=== PATIENT | female | born 1950 | race Hispanic/Latino ===

== ENCOUNTER 2020-01-21 14:00 | Inpatient (IN) | payer BC, OTHER ==
[~2020-01-21] VITALS: Ht 162.6 cm; Wt 107.6 kg
--- NOTE | 2020-01-21 14:03 | Emergency Department Note ---
History of Present Illnes History of Present Illness Chief Complaint: General Medicine Complaints History of Present Illness This is a 69 year old female presents to the ED for lower abd pain with nausea/vomiting and diarrhea. Denies fever or cough . Historian: Patient Arrival Mode: Car History limited by: language barrier Nursing Agency Manager Required: Yes Onset (how long ago): week(s) (1) Location: lower abdomen Radiation: Reports abdomen Severity: moderate Onset quality: gradual Duration (how long): week(s) (1) Timing of current episode: constant Progression: worsening Chronicity: new Relieving factors: none Exacerbating factors: none Treatments prior to arrival: none Past Medical/Family History Physician Review I have reviewed the patient's past medical and family history. Any updates have been documented here. Past Medical History Past Surgical History: None Social History Smoking Cessation: Never Smoker Alcohol Use: None Any Illegal Drug Use: No Review of Systems Review of Systems Constitutional: Reports no symptoms; Denies fever EENTM: Reports no symptoms Cardiovascular: Reports no symptoms Respiratory: Reports no symptoms; Denies cough Gastrointestinal: Reports abdominal pain, Reports diarrhea, Reports nausea, Reports vomiting Genitourinary: Reports no symptoms Musculoskeletal: Reports no symptoms Integumentary: Reports no symptoms Neurological: Reports no symptoms Psychological: Reports no symptoms Endocrine: Reports no symptoms Hematological/Lymphatic: Reports no symptoms Physical Exam Related Data Allergies: Coded Allergies: No Known Allergies (Unverified , 01/21/20) Physical Exam CONSTITUTIONAL Constitutional: Present well-developed, Present well-nourished HENT HENT: Present normocephalic, Present atraumatic, Present oropharynx clear/moist, Present nose normal HENT L/R: Present left ext ear normal, Present right ext ear normal EYES Eyes: Reports PERRL, Reports conjunctivae normal NECK Neck: Present ROM normal PULMONARY Pulmonary: Present effort normal, Present breath sounds normal CARDIOVASCULAR Cardiovascular: Present regular rhythm, Present heart sounds normal, Present capillary refill normal, Present normal rate GASTROINTESTINAL Abdominal: Present soft, Present tender (lower) GENITOURINARY Genitourinary: Present exam deferred SKIN Skin: Present warm, Present dry MUSCULOSKELETAL Musculoskeletal: Present ROM normal NEUROLOGICAL Neurological: Present alert, Present oriented x 3, Present no gross motor or sensory deficits PSYCHOLOGICAL Psychological: Present mood/affect normal, Present judgement normal Results Laboratory Lab results reviewed: Yes Laboratory comments CBC : wnl CMP : Na 130, Glucose 200 UA : rare bacteria Imaging Imaging results reviewed: Yes Impressions [facility] [address] [address] Patient Name: GALILEO DILLON MR #: [id number] : 1950 Age/Sex: 69/F Req #: [id number] Adm Physician: Ordered by: DAISY JIANG DO Report #: [id number] Location: ER Room/Bed: Procedure: [id number] CT/CT ABDOMEN/PELVIS W Exam Date: 01/21/20 Exam Time: 1515 REPORT STATUS: Signed EXAM: CT Abdomen and Pelvis WITH contrast INDICATION: ^lower abd pain ^20200121 ^1515 COMPARISON: None. TECHNIQUE: Abdomen and pelvis were scanned utilizing a multidetector helical scanner from the lung base to the pubic symphysis after administration of IV contrast. Coronal and sagittal reformations were obtained. Routine protocol was performed. Scan was performed when during portal venous phase. IV CONTRAST: 100 mL of Isovue 370 ORAL CONTRAST: None RADIATION DOSE: Total DLP: 426 mGy*cm Estimated effective dose: (DLP x 0.015 x size factor) mSv COMPLICATIONS: None FINDINGS: LINES and TUBES: None. LOWER THORAX: Bilateral subpleural groundglass airspace opacities, left greater than right. HEPATOBILIARY: No focal hepatic lesions. No biliary ductal dilation. GALLBLADDER: No radio-opaque stones or sludge. No wall thickening. SPLEEN: No splenomegaly. PANCREAS: No focal masses or ductal dilatation. ADRENALS: No adrenal nodules KIDNEYS/URETERS: Kidneys enhance symmetrically. No hydronephrosis. Indeterminate 0.6 cm partially exophytic cyst in the right kidney on series 2, image 38. No stones. GI TRACT: No abnormal distention, wall thickening, or evidence of bowel obstruction. Diffuse diverticulosis of the sigmoid colon without diverticulitis. Appendix is normal. PELVIC ORGANS/BLADDER: Unremarkable. LYMPH NODES: No lymphadenopathy. VESSELS: Unremarkable. PERITONEUM / RETROPERITONEUM: No free air or fluid. BONES: Unremarkable. SOFT TISSUES: Unremarkable. IMPRESSION: Bilateral lower lobe subpleural groundglass opacities concerning for multifocal pneumonia, including viral pneumonia. No acute abnormalities in the abdomen and pelvis. Diverticulosis of the sigmoid colon without diverticulitis. Signed by: Dr. Lacy Michelle M.D. on 01/21/2020 4:43 PM Dictated By: LACY MICHELLE MD 42 Transcribed By: RAYNA on 01/21/201642 COPY TO: DAISY JIANG DO~ Assessment & Plan Medical Decision Making MDM 69 yof with abdominal pain. CBC, CMP, UA and CTS ordered to r/o appendicitis, diverticulitis, UTI, kidney stone, perforated viscus, obstruction, ischemia, and biliary pathology. CTS abd demonstrated no intra-abdominal pathology but suggestive of multifocal viral pneumonia . Suspicion for COVID-19 high and patient placed in isolation with patient to be admitted for suspected COVID-19 infection Assessment & Plan Final Impression: (1) COVID-19 (2) Lower abdominal pain Depart Disposition: ADMITTED Home Meds Reported Medications Sumatriptan Succinate (SUMATRIPTAN SUCCINATE) 50 Mg Tablet, 50 MG PRN 01/21/20 Tramadol Hcl* (ULTRAM 50MG*) 50 Mg Tab, 50 MG BID 01/21/20 Cyclobenzaprine Hcl (FLEXERIL) 5 Mg Tablet, 5 MG PRN 01/21/20 Metformin Hcl (METFORMIN HCL) 1,000 Mg Tablet, 1000 MG BID 01/21/20 Loratadine (LORATADINE) 10 Mg Tablet, 10 MG BID 01/21/20 Simvastatin (SIMVASTATIN) 10 Mg Tablet, 10 MG HS 01/21/20 Glipizide (GLIPIZIDE) 10 Mg Tablet, 10 MG BID 01/21/20 Amitriptyline Hcl (AMITRIPTYLINE HCL) 10 Mg Tablet, 10 MG HS 01/21/20 DAISY JIANG DO Jan 21, 2020 14:03
[2020-01-21] MEDS ORDERED: SODIUM CHLORIDE 0.9% 1000ML 1,000 ML IV STA (14:04)
[2020-01-21] MEDS ORDERED: ONDANSETRON HCL INJ 2MG/ML 2ML 2 MG/ML VIAL IV NR (14:15)
[2020-01-21] MEDS ORDERED: MORPHINE SULFATE INJ 4 MG/ML INJ 1ML IV NR (14:15)
[2020-01-21 14:16] LABS: BASOPHILS % 0.2 % (0.0-1.0); HEMATOCRIT 40.1 % (34.2-44.1); HEMOGLOBIN 13.7 g/dL (12.0-16.0); LYMPHOCYTES # (AUTO) 1.5 (1.0-3.2); LYMPHOCYTES % 31.2 % (18.0-39.1); MEAN CORPUSCULAR HEMOGLOBIN 28.9 pg (28-32); MEAN CORPUSCULAR HGB CONC 34.2 g/dL (31-35); MEAN CORPUSCULAR VOLUME 84.6 fL (81-99); MONOCYTES # (AUTO) 0.2 (0.2-0.8); MONOCYTES % 4.2 % (4.4-11.3); NEUTROPHILS # (AUTO) 3.1 (2.1-6.9); NEUTROPHILS % 64.2 % (38.7-80.0); PLATELET COUNT 218 x10e3/uL (140-360); RED BLOOD COUNT 4.74 x10e6/uL (3.6-5.1); RED CELL DISTRIBUTION WIDTH 12.6 % (11.7-14.4)
[2020-01-21] MEDS ORDERED: DIATRIZOATE MEGL/DIATRIZOA SOD 30 ML BTL PO ONE (14:30)
[2020-01-21 14:36] LABS: CLARITY,URINE CLEAR (CLEAR); COLOR,URINE ORANGE (YELLOW); LEUKOCYTE ESTERASE ,URINE NEGATIVE (NEGATIVE); NITRITE,URINE NEGATIVE (NEGATIVE)
[2020-01-21 14:37] LABS: BILIRUBIN,URINE SMALL (NEGATIVE); KETONES,URINE TRACE (NEGATIVE); PROTEIN,URINE DIPSTICK >=300 (NEGATIVE); URINE UROBILINOGEN 1 mg/dL (0.2 - 1)
[2020-01-21 14:44] LABS: ALBUMIN 3.3 g/dL (3.5-5.0); ALBUMIN/GLOBULIN RATIO 0.8 (0.8-2.0); ANION GAP 15.9 mmol/L (8-16); CALCIUM 8.5 mg/dL (8.4-10.2); CREATININE, SERUM 0.94 mg/dL (0.57-1.11); POTASSIUM 3.9 mmol/L (3.5-5.1)
[2020-01-21 14:57] LABS: BACTERIA,URINE RARE /HPF; EPITHELIAL CELLS,URINE FEW /LPF
[2020-01-21] MEDS ORDERED: ETOMIDATE 2 MG/ML 10 ML INJ IV ONE (15:10)
[2020-01-21] MEDS ORDERED: MIDAZOLAM HCL 2 MG/2 ML VIAL ONE (15:10)
[2020-01-21] MEDS ORDERED: SUCCINYLCHOLINE CHLORIDE 20 MG/ML 10ML VIAL ONE (15:10)
[2020-01-21] MEDS ORDERED: SODIUM CHLORIDE 0.9% 50ML 50 ML ONE (15:16)
[2020-01-21] MEDS ORDERED: IOPAMIDOL 370 MG/ML 200 ML INFUS..BTL INJ ONE (15:16)
--- NOTE | 2020-01-21 16:46 | Diagnostic Imaging Report ---
EXAM: CT Abdomen and Pelvis WITH contrast INDICATION: ^lower abd pain ^20200121 ^1515 COMPARISON: None. TECHNIQUE: Abdomen and pelvis were scanned utilizing a multidetector helical scanner from the lung base to the pubic symphysis after administration of IV contrast. Coronal and sagittal reformations were obtained. Routine protocol was performed. Scan was performed when during portal venous phase. IV CONTRAST: 100 mL of Isovue 370 ORAL CONTRAST: None RADIATION DOSE: Total DLP: 426 mGy*cm Estimated effective dose: (DLP x 0.015 x size factor) mSv COMPLICATIONS: None FINDINGS: LINES and TUBES: None. LOWER THORAX: Bilateral subpleural groundglass airspace opacities, left greater than right. HEPATOBILIARY: No focal hepatic lesions. No biliary ductal dilation. GALLBLADDER: No radio-opaque stones or sludge. No wall thickening. SPLEEN: No splenomegaly. PANCREAS: No focal masses or ductal dilatation. ADRENALS: No adrenal nodules KIDNEYS/URETERS: Kidneys enhance symmetrically. No hydronephrosis. Indeterminate 0.6 cm partially exophytic cyst in the right kidney on series 2, image 38. No stones. GI TRACT: No abnormal distention, wall thickening, or evidence of bowel obstruction. Diffuse diverticulosis of the sigmoid colon without diverticulitis. Appendix is normal. PELVIC ORGANS/BLADDER: Unremarkable. LYMPH NODES: No lymphadenopathy. VESSELS: Unremarkable. PERITONEUM / RETROPERITONEUM: No free air or fluid. BONES: Unremarkable. SOFT TISSUES: Unremarkable. IMPRESSION: Bilateral lower lobe subpleural groundglass opacities concerning for multifocal pneumonia, including viral pneumonia. No acute abnormalities in the abdomen and pelvis. Diverticulosis of the sigmoid colon without diverticulitis. Signed by: Dr. Chanell Briscoe M.D. on 01/21/2020 4:43 PM
[2020-01-21] MEDS ORDERED: ACETAMINOPHEN 325 MG TAB PO ONE (18:15)
[2020-01-21] MEDS: AZITHROMYCIN 500MG/NS 250 ML 250 ML IV SCH (18:20)
[2020-01-21] MEDS ORDERED: SIMVASTATIN10 MG (19:28)
[2020-01-21] MEDS ORDERED: METFORMIN HCL1000 MG (19:28)
[2020-01-21] MEDS ORDERED: AMITRIPTYLINE H10 MG (19:28)
[2020-01-21] MEDS ORDERED: GLIPIZIDE10 MG (19:28)
[2020-01-21] MEDS ORDERED: LORATADINE10 MG (19:28)
[2020-01-21] MEDS ORDERED: SUMATRIPTAN SUC50 MG (19:29)
[2020-01-21] MEDS ORDERED: ULTRAM 50MG50 MG (19:29)
[2020-01-21] MEDS ORDERED: CYCLOBENZAPRINE5 MG (19:29)
--- OUTSIDE RECORDS SUMMARY | 2020-01-21 20:32 | XMS REPORT | Continuity of Care Document ---
Author Author [facility] t Organization [facility] Address [address] [place] [address] Phone Unavailable Care Team Providers Care Java Programmer Analyst Name Role Phone DAISY JIANG Unavailable Problems This patient has no known problems. Allergies, Adverse Reactions, Alerts This patient has no known allergies or adverse reactions. Medications This patient has no known medications. Procedures This patient has no known procedures. Results Test Description Test Time Test Comments Results Result Comments Source CT ABDOMEN/PELVIS W 2020-01-21 16:39:[address] [address] Patient Name: GALILEO DILLON MR #: [id number] : 1950 Age/Sex: 69/F Req #: [id number] Adm Physician: Ordered by: DAISY JIANG DO Report #: [id number] Location: ER Room/Bed: Procedure: [id number] CT/CT ABDOMEN/PELVIS W Exam Date: 01/21/20 Exam Time: 1514 REPORT STATUS: Signed EXAM: CT Abdomen and Pelvis WITH contrast INDICATION: lower abd pain 20200121 COMPARISON: None. TECHNIQUE: Abdomen and pelvis were scanned utilizing a multidetector helical scanner from the lung base to the pubic symphysis after administration of IV contrast. Coronal and sagittal reformations were obtained. Routine protocol was performed. Scan was performed when during portal venous phase. IV CONTRAST: 100 mL of Isovue 370 ORAL CONTRAST: None RADIATION DOSE: Total DLP: 426 mGy*cm Estimated effective dose: (DLP x 0.015 x size factor) mSv COMPLICATIONS: None FINDINGS: LINES and TUBES: None. LOWER THORAX: Bilateral subpleural groundglass airspace opacities, left greater than right. HEPATOBILIARY: No focal hepatic lesions. No biliary ductal dilation. GALLBLADDER: No radio-opaque stones or sludge. No wall thickening. SPLEEN: No splenomegaly. PANCREAS: No focal masses or ductal dilatation. ADRENALS: No adrenal nodules KIDNEYS/URETERS: Kidneys enhance symmetrically. No hydronephrosis. Indeterminate 0.6 cm partially exophytic cyst in the right kidney on series 2, image 38. No sto john. GI TRACT: No abnormal distention, wall thickening, or evidence of bowel obstruction. Diffuse diverticulosis of the sigmoid colon without diverticulitis. Appendix is normal. PELVIC ORGANS/BLADDER: Unremarkable. LYMPH NODES: No lymphadenopathy. VESSELS: Unremarkable. PERITONEUM / RETROPERITONEUM: No free air or fluid. BONES: Unremarkable. SOFT TISSUES: Unremarkable. IMPRESSION: Bilateral lower lobe subpleural groundglass opacities concerning for multifocal pneumonia, including viral pneumonia. No acute abnormalities in the abdomen and pelvis. Diverticulosis of the sigmoid colon without diverticulitis. Signed by: Dr. Lacy Michelle M.D. on 01/21/2020 4:43 PM Dictated By: LACY MICHELLE MD 1643 Transcribed By: RAYNA on 01/21/20 1643 COPY TO: DAISY JIANG DO CT Brain/Head w/o Contrast 2018-01-21 16:32:17 P atient: GALILEO DILLON Date/Time01/21/2018 15:57 CDTReason for ExamSyncopeReportCT HEAD WITHOUT CONTRASTCLINICAL HISTORY: SyncopeCOMPARISON: None available.TECHNIQUE: 5 mm axial images of the brain were obtained without contrast. Coronal and sagittal reformats were obtained.FINDINGS: There is no acute intracranial hemorrhage or extra-axial col lection. Rodriguez-white matter differentiation is well-preserved without evidence of edema or acute infarct. There is no hydrocephalus, midline shift, or mass effect.The cranial vault and skull base are intact. The paranasal sinuses and mastoid air cells are pneumatized and well-aerated.IMPRESSION: No acute intracranial abnormalityLocation: R16 Final Dictated by: MD Vogel Adam FDictated DT/TM: 01/21/2018 4:30 pmSigned by: MD Vogel Adam FSigned (Electronic Signature): 01/21/2018 4:32 pm
[2020-01-21] MEDS ORDERED: SODIUM CHLORIDE 0.9% 1000ML 1,000 ML ONE (20:38)
[2020-01-21] MEDS ORDERED: SODIUM CHLORIDE 0.9% 1000ML 1,000 ML IV ONE (20:45)
--- NOTE | 2020-01-21 21:14 | NUR ---
DR. Antione GARZA--[phone]
[2020-01-21] MEDS: SODIUM CHLORIDE 0.9% 1000ML 1,000 ML IV SCH (21:50)
--- NOTE | 2020-01-21 21:52 | NUR ---
2ND LITER OF N.S. ORDERED BY DR. GARZA AND VASYL
[2020-01-21] MEDS ORDERED: DEXTROSE 50% SYRINGE 50 ML IV PRN (22:45)
[2020-01-21] MEDS ORDERED: ZOLPIDEM TARTRATE 5 MG TAB PO PRN (22:45)
--- NOTE | 2020-01-21 23:00 | NUR ---
According to report from Lavon Beckwith nurse patient was seen by Dr. Thompson at the E.R. and Dr. Fernandez was notified of this consultation.
--- NOTE | 2020-01-21 23:00 | NUR ---
Received patient from ED via stretcher. Patient is alert and oriented. Assisted to bed. Oxygen at 3l/min via nasal cannula. IV to both AC patent. IV fluid of NS at 125 ml/hr continue. Home medications reviewed. Patient states she gets dizzy sometimes at night when she gets up. Call light within patient's reached and encouraged to use. Bed alarm on. Bed in lowest position. Side rails up. Vital signs within normal range.
[2020-01-22] VITALS (10 sets, daily range): BP systolic 109–134; BP diastolic 63–81
--- NOTE | 2020-01-22 00:56 | Consultation ---
DATE OF CONSULTATION: Pulmonary Critical Care Consultation CHIEF COMPLAINT: Nausea, vomiting, and malaise. HISTORY OF PRESENT ILLNESS: The patient is a 69-year-old woman. She has a history of diabetes. She has felt ill for the past week. She had some nausea and vomiting over the last several days and did not take her Glucotrol. She has also noticed some polyuria. She complains of some cough. She seems unsure about fevers. She denies abdominal pain. PAST SURGICAL HISTORY: None. PAST MEDICAL HISTORY: 1. Hypertension. 2. No prior history of asthma or COPD. 3. No prior history of heart disease. ALLERGIES: NO KNOWN DRUG ALLERGIES. SOCIAL HISTORY: The patient is not a smoker. She is not a drinker. FAMILY HISTORY: Family history is noncontributory. REVIEW OF SYSTEMS: The patient is unsure about fevers. There is no headache. She has no neck pain. She has some dyspnea with exertion. There is some cough. She has no chest pain. She has no abdominal pain. She has had nausea and vomiting. She denies diarrhea. She has no leg edema. PHYSICAL EXAMINATION: VITAL SIGNS: The blood pressure is now 95/60 and the heart rate is 70. HEENT: Shows no facial swelling or erythema. The nasal mucosa is normal. The oropharynx is normal. LYMPHATIC: Shows no submandibular or cervical supraclavicular adenopathy. CARDIAC: Reveals regular rate and rhythm with normal S1 and S2. LUNGS: Auscultation of lungs reveals crackles at the bases. There is no wheezing. ABDOMEN: Soft, nontender. There is no rebound or guarding. EXTREMITIES: Shows no leg edema or calf tenderness. There is no cyanosis or clubbing. SKIN: Shows no rashes. NEUROLOGIC: Shows no focal abnormalities. LABORATORY DATA: White blood cell count is 4.75 and hemoglobin 13.7. The platelet count is 218. The sodium is 130, and the BUN to creatinine ratio is 14 to 0.94. The AST is 63. The albumin is 3.3. RADIOGRAPHIC DATA: CT scan of the abdomen and pelvis shows lower lobe ground-glass opacities concerning for multifocal pneumonia. There is diverticulosis of the sigmoid colon without diverticulitis. IMPRESSION: 1. Viral pneumonia and coronavirus disease infection. 2. Mild diabetic ketoacidosis. 3. Hypertension. 4. Hyponatremia. PLAN: The patient will receive: 1. IV fluids. 2. Judicious use of insulin. 3. Zithromax. 4. Supplemental oxygen. 5. Tylenol. MD PASTORA Easton/MODL /[id number]
--- NOTE | 2020-01-22 01:00 | NUR ---
Patient refused blood sugar checked. She said she wants to check it in the morning before breakfast.
[2020-01-22] MEDS ORDERED: ONDANSETRON HCL INJ 2MG/ML 2ML 2 MG/ML VIAL IV PRN (02:45)
[2020-01-22] MEDS ORDERED: HYDRALAZINE HCL 20 MG/ML VIAL IV PRN (02:45)
--- NOTE | 2020-01-22 05:59 | Diagnostic Imaging Report ---
EXAMINATION: CHEST SINGLE (PORTABLE) INDICATION: ^viral pneumonia ^20200122 ^0533 COMPARISON: None FINDINGS: AP view TUBES and LINES: None. LUNGS: Lungs are well inflated. Bilateral airspace opacities. PLEURA: No pleural effusion or pneumothorax. HEART AND MEDIASTINUM: The cardiomediastinal silhouette is unremarkable. BONES AND SOFT TISSUES: No acute osseous lesion. Soft tissues are unremarkable. UPPER ABDOMEN: No free air under the diaphragm. IMPRESSION: Bilateral airspace opacities, representing multifocal pneumonia. Signed by: Dr. Hector Vieyra MD on 01/22/2020 5:56 AM
[2020-01-22] MEDS: ACETAMINOPHEN 325 MG TAB PO PRN ×2 (06:19→20:56)
[2020-01-22] MEDS: SODIUM CHLORIDE 0.9% 1000ML 1,000 ML IV SCH (06:19)
[2020-01-22 06:30] LABS: ALANINE AMINOTRANSFERASE 26 IU/L (0-55); ALBUMIN 2.3 g/dL (3.5-5.0); ALBUMIN/GLOBULIN RATIO 0.7 (0.8-2.0); ALKALINE PHOSPHATASE 36 IU/L (40-150); ANION GAP 12.6 mmol/L (8-16); BLOOD UREA NITROGEN 9 mg/dL (7-26); BUN/CREATININE RATIO 13 (6-25); CALCIUM 7.5 mg/dL (8.4-10.2); CARBON DIOXIDE 16 mmol/L (22-29); CHLORIDE 109 mmol/L (98-107); CREATININE, SERUM 0.68 mg/dL (0.57-1.11); EST GLOMERULAR FILTRATION RATE > 60 ML/MIN (60-); GLUCOSE 182 mg/dL (74-118); POTASSIUM 3.6 mmol/L (3.5-5.1); SODIUM 134 mmol/L (136-145)
--- NOTE | 2020-01-22 06:31 | NUR ---
Stuck patient for blood drawn for labs but unsuccessful. Another RN tried and also was unsuccessful. screen making technician made aware that only 1 green top was obtained. screen making technician states he will tell the capital campaign fundraiser.
--- NOTE | 2020-01-22 06:58 | NUR ---
Day shift nurse is aware regarding the labs that patient needs to have.
[2020-01-22 07:03] LABS: CHOL/HDL RATIO 4.8 (3.0-3.6); MAGNESIUM 1.8 MG/DL (1.3-2.1); PHOSPHORUS 1.8 MG/DL (2.3-4.7)
[2020-01-22 07:10] LABS: THYROID STIMULATING HORMONE 0.852 uIU/mL (0.350-4.940)
[2020-01-22] MEDS: INSULIN REGULAR, HUMAN 100 UNIT/1 ML 3ML VIAL SQ SCH ×4 (07:30→20:57)
[2020-01-22] MEDS: LORATADINE 10 MG TAB PO SCH ×2 (08:26→17:06)
[2020-01-22] MEDS: FAMOTIDINE 20 MG/2 ML VIAL IV SCH ×2 (08:26→17:06)
[2020-01-22] MEDS: POTASSIUM CHLORIDE 20 MEQ TAB CR PO SCH (08:26)
[2020-01-22] MEDS: AZITHROMYCIN 500MG/NS 250 ML 250 ML IV SCH (08:26)
[2020-01-22] MEDS ORDERED: POTASSIUM PHOSPHATE 20 MM in SODIUM CHLORIDE 0.9% 250ML 250 ML IV ONE (09:30)
--- NOTE | 2020-01-22 13:48 | Progress Note ---
DATE: SUBJECTIVE: The patient still has dyspnea on exertion. She has some cough. She has some mild diarrhea. PHYSICAL EXAMINATION: VITAL SIGNS: Blood pressure is 124/81, saturation is 96% on 3 L, and the pulse is 77. HEENT: Shows no facial swelling or erythema. CARDIAC: Reveals regular rate and rhythm with normal S1, S2. LUNGS: Auscultation of lungs reveals crackles in the bases. There is no wheezing. ABDOMEN: Soft, nontender. There is no rebound or guarding. EXTREMITIES: Shows no leg edema or calf tenderness. There is no cyanosis or clubbing. SKIN: Shows no rashes. NEUROLOGIC: Shows no focal abnormalities. LABORATORY DATA: BUN to creatinine ratio is 9 to 0.68, and CBC is within normal limits. IMPRESSION: 1. Viral pneumonia and coronavirus. 2. Diabetes. 3. Hypertension. 4. Hyponatremia. PLAN: 1. Stop normal saline because of worsening hypochloremia. 2. Continue oxygen. 3. Continue antibiotics. 4. Insulin as needed with diabetic checks. Richard Thompson MD [facility]/MODL /[id number]
--- NOTE | 2020-01-22 14:13 | Consultation ---
DATE OF CONSULTATION: REASON FOR CONSULTATION: This patient is with COVID-19 pneumonia. HISTORY OF PRESENT ILLNESS: This patient who is a very pleasant 69-year-old female, who has history of diabetes mellitus. This patient has been sick for one week, some nausea, some fevers, headaches. The patient was not able to take her Glucotrol for a couple of days. The patient was just feeling sick allover, polyuria, came to the emergency room because she is a little bit short of breath and little bit dizzy, little concern she had COVID-19, it was tested, she is being admitted, it was positive. PAST MEDICAL HISTORY: Hypertension and diabetes. PAST SURGICAL HISTORY: She denies. ALLERGIES: NKA. SOCIAL HISTORY: There is no smoking, drug abuse, or alcohol abuse. FAMILY HISTORY: Otherwise unremarkable. REVIEW OF SYSTEMS: At the present time, the patient is lying in bed comfortably, but when she stands up, she feels dizzy. She is on 2-3 L of oxygen. MEDICATIONS: She is currently on azithromycin, Tylenol, insulin, and Zofran. IMAGING DATA: She had a CT of the abdomen and pelvis showed bilateral lobe ground-glass opacities concerning for multifocal pneumonia. LABORATORY DATA: White count 4.75, hemoglobin 13, and hematocrit 40. Sodium 134, potassium 3.7, and creatinine 0.68. COVID-19 was positive. PHYSICAL EXAMINATION: GENERAL: She is currently alert, oriented. VITAL SIGNS: Stable. T-max 100.4. O2 saturation is running between 96 and 93. HEENT: She is not icteric, normocephalic. NECK: Supple. CHEST: Few crackles bilateral. COR: S1 and S2. No S3, S4, or murmur. ABDOMEN: Soft. Bowel sounds present. No tenderness. EXTREMITIES: No edema. SKIN: No rash. IMPRESSION: Atypical pneumonia, coronavirus disease-19, present on admission. We will put her on Lovenox. We will put her on Rocephin and azithromycin for the possibility of superimposed community-acquired pneumonia. Oxygen as tolerated. Observe the patient clinically. Reassess in the morning. If she still drops her O2 saturation to call me. Discussed with the patient. MD ARLYN Lea/ELVA /[id number]
[2020-01-22] MEDS: ENOXAPARIN SOD INJ 40 MG/0.4 ML SYR SC SCH (17:06)
[2020-01-22] MEDS: AMITRIPTYLINE HCL 10 MG TAB PO SCH (20:56)
--- NOTE | 2020-01-22 21:16 | NUR ---
Patient is alert and oriented. Bad alarm on for safety. Side rails are up. Bed locked. Call light within reached.
[2020-01-23] VITALS (12 sets, daily range): BP systolic 101–135; BP diastolic 54–86
[2020-01-23 05:37] LABS: BASOPHILS % 0.2 % (0.0-1.0); HEMATOCRIT 33.8 % (34.2-44.1); HEMOGLOBIN 11.4 g/dL (12.0-16.0); LYMPHOCYTES # (AUTO) 1.6 (1.0-3.2); LYMPHOCYTES % 30.1 % (18.0-39.1); MEAN CORPUSCULAR HEMOGLOBIN 28.7 pg (28-32); MEAN CORPUSCULAR HGB CONC 33.7 g/dL (31-35); MEAN CORPUSCULAR VOLUME 85.1 fL (81-99); MONOCYTES # (AUTO) 0.2 (0.2-0.8); MONOCYTES % 4.6 % (4.4-11.3); NEUTROPHILS # (AUTO) 3.4 (2.1-6.9); NEUTROPHILS % 64.7 % (38.7-80.0); PLATELET COUNT 238 x10e3/uL (140-360); RED BLOOD COUNT 3.97 x10e6/uL (3.6-5.1); RED CELL DISTRIBUTION WIDTH 13.2 % (11.7-14.4)
--- NOTE | 2020-01-23 05:50 | History and Physical ---
CONSULTING PHYSICIANS: Dr. Richard Thompson and Dr. Raul Fernandez. PCP: Not listed. CHIEF COMPLAINT: Abdominal pain, hypoxia, and fever. HISTORY OF PRESENT ILLNESS: The patient is a 69-year-old female, admitted with one-week duration of fever, headache, and nausea. The patient reports general malaise, feeling sick all over with polyuria and I am unable to take her Glucotrol for a couple of days. She came to the emergency department because she was short of breath and dizzy. She had concern that she had COVID-19. It was tested and found to be positive. PAST MEDICAL HISTORY: Hypertension and diabetes. PAST SURGICAL HISTORY: None. FAMILY HISTORY: Noncontributory. SOCIAL HISTORY: Denies smoking, alcohol, or illicit drug use. ALLERGIES: NO KNOWN ALLERGIES. MEDICATIONS: Reviewed. REVIEW OF SYSTEMS: A 14-point review of systems completed, mainly complains of feeling dizzy, especially with activity, fever, headaches, and nausea. Denies vomiting or diarrhea. PHYSICAL EXAMINATION: VITAL SIGNS: Temperature 100.6, heart rate 88, blood pressure 115/72, respirations 20, oxygen saturation 93% on nasal cannula 3 L/minute. GENERAL: Supine. LUNGS: Bibasilar crackles without wheezing. CARDIOVASCULAR: Regular rate and rhythm without murmur. ABDOMEN: Bowel sounds positive. Soft and nontender. EXTREMITIES: No pitting edema. No clubbing, cyanosis, or marked swelling. No signs of DVT. INTEGUMENTARY: No rashes. NEUROLOGICAL: GCS 15. Nonfocal. IMPRESSION: 1. Atypical viral multifocal community-acquired pneumonia, present on arrival, due to COVID-19 with possible superimposed bacterial component. 2. Infectious Disease and Pulmonology have been consulted and are following. Continue empiric azithromycin and Rocephin. Wean oxygen as tolerated. Normal saline has stopped due to worsening hypochloremia. 3. Controlled type 2 diabetes mellitus. Serum glucose 182 today and 200 yesterday. Monitor. 4. Controlled hypertension. Blood pressure 115/72. Continue same p.r.n. IV hydralazine. 5. Mild acute hyponatremia. Sodium level 134. Monitor. 6. Transaminitis and elevated lipase. AST 38, alkaline phosphatase 36, lipase 122. Monitor. 7. Metabolic acidosis. Serum CO2 16. Monitor. 8. Prophylaxis. Lovenox, Pepcid. H and P time spent 60 minutes. [place] code [id number]. Dictated by Marvin Sanchez, MILITARY LOGISTICS SPECIALIST MD RON [place]/BERNARDOL /[id number]
[2020-01-23 06:07] LABS: ALANINE AMINOTRANSFERASE 22 IU/L (0-55); ALBUMIN 2.2 g/dL (3.5-5.0); ALBUMIN/GLOBULIN RATIO 0.6 (0.8-2.0); ALKALINE PHOSPHATASE 33 IU/L (40-150); ANION GAP 15.4 mmol/L (8-16); BLOOD UREA NITROGEN 6 mg/dL (7-26); BUN/CREATININE RATIO 8 (6-25); CALCIUM 7.8 mg/dL (8.4-10.2); CARBON DIOXIDE 17 mmol/L (22-29); CHLORIDE 106 mmol/L (98-107); CREATININE, SERUM 0.71 mg/dL (0.57-1.11); EST GLOMERULAR FILTRATION RATE > 60 ML/MIN (60-); GLUCOSE 141 mg/dL (74-118); POTASSIUM 3.4 mmol/L (3.5-5.1); SODIUM 135 mmol/L (136-145)
[2020-01-23] MEDS ORDERED: POTASSIUM CHLORIDE 20 MEQ TAB CR PO ONE ×2 (07:45→09:00)
--- NOTE | 2020-01-23 08:41 | NUR ---
DISCUSSED PT IN MORNING ROUNDS WITH DR URRUTIA ORDER FOR HOME 02 EVAL NURSE TO NOTIFY CM OF RESULTS
[2020-01-23] MEDS: AZITHROMYCIN 500MG/NS 250 ML 250 ML IV SCH (09:20)
[2020-01-23] MEDS: FAMOTIDINE 20 MG/2 ML VIAL IV SCH ×2 (09:20→17:11)
[2020-01-23] MEDS: POTASSIUM CHLORIDE 20 MEQ TAB CR PO SCH (09:20)
[2020-01-23] MEDS: LORATADINE 10 MG TAB PO SCH ×2 (09:20→17:11)
[2020-01-23] MEDS: INSULIN REGULAR, HUMAN 100 UNIT/1 ML 3ML VIAL SQ SCH ×4 (09:21→21:00)
[2020-01-23] MEDS: ZINC SULFATE 220 MG CAP PO SCH (09:21)
--- NOTE | 2020-01-23 09:21 | Progress Note ---
DATE: SUBJECTIVE: The patient still has some diarrhea. She has dyspnea when walking. Her oxygen was increased to 5 L. PHYSICAL EXAMINATION: VITAL SIGNS: The blood pressure is 123/62, saturation is 93%, and her T-max was 100.4. HEENT: Shows no facial swelling or erythema. CARDIAC: Reveals a regular rate and rhythm with normal S1 and S2. LUNGS: Auscultation of lungs reveals clear breath sounds bilaterally. There is no wheezing. ABDOMEN: Soft and nontender. There is no rebound or guarding. EXTREMITIES: Shows no leg edema or calf tenderness. There is no cyanosis or clubbing. SKIN: Shows no rashes. LABORATORY DATA: White blood cell count is 5.18 and the hemoglobin is 11.4. The platelet count is 238. The BUN to creatinine ratio is 6 to 0.71 and the potassium is 3.4. Hemoglobin A1c is 8.9. RADIOGRAPHIC DATA: Bilateral airspace disease. IMPRESSION: 1. Acute respiratory failure. 2. Viral pneumonia and COVID-19. 3. Diabetes. 4. Hypertension. 5. Hypokalemia. PLAN: 1. Continue oxygen. 2. Continue to monitor blood sugars and give insulin as needed. 3. Continue monitor antibiotics. 4. Continue Lovenox. Discussed need for remdesivir with Infectious Disease. Richard Thompson MD [facility]/MODL /[id number]
[2020-01-23] MEDS ORDERED: NON-FORMULARY MEDICATION IV SCH (11:30)
--- NOTE | 2020-01-23 12:11 | Progress Note ---
DATE: SUBJECTIVE: Ms. Durham is feeling worse today. OBJECTIVE: VITAL SIGNS: Her temperature 100.4, heart rate is 91, and O2 saturation 93. She is on 5 L currently of oxygen. HEENT: She is not icteric. NECK: Supple. CHEST: Few crackles bilaterally. HEART: S1, S2. No S3, S4, murmur. ABDOMEN: Soft. Bowel sounds present. EXTREMITIES: No edema. IMPRESSION: 1. Coronavirus disease-19 pneumonia, present on admission. 2. Acute respiratory failure, getting worse. 3. Diabetes mellitus. 4. Hypertension. 5. Hyperlipidemia. Discussed with her and she called her daughter. She is getting worse. We talked about remdesivir. She agreed to take it and she knows that it is an investigational drug approved by FDA for the emergency cases and now she meets the criteria with a worsening condition. She can wish not to take it if she wants to, but the patient wants to take it. We are going to start it at 200 mg IV piggyback now and 100 mg IV piggyback daily. Continue with antibiotic as ordered. We will reassess in the morning. MD ARLYN Lea/ELVA /[id number]
[2020-01-23] MEDS ORDERED: NS 0.9% IV ONE (14:00)
[2020-01-23] MEDS ORDERED: REMDESIVIR IV ONE (14:00)
[2020-01-23] MEDS: CHOLESTYRAMINE 4 GM PACKET PO SCH ×2 (14:23→21:11)
[2020-01-23] MEDS ORDERED: DIPHENOXYLATE/ATROPINE TAB PO PRN (14:30)
--- NOTE | 2020-01-23 15:54 | Progress Note ---
DATE: 01/23/2020 SUBJECTIVE: The patient is lying supine in bed on the right side. She still complains of shortness of breath and dyspnea on exertion. She is wearing oxygen. Has a cough. She is unable to eat solid foods as she does not have her partial plate denture with her. Per RN, she is not eating much and having multiple diarrhea stools at least 10 in her shift. Her abdominal pain is about 8/10 on a 0-10 pain scale. PHYSICAL EXAMINATION: VITAL SIGNS: Temperature 97.9, heart rate 87, blood pressure 124/78, respirations 16, and oxygen saturation 98%. Per the nurse, oxygen saturation 88-90% on 5 L of oxygen via nasal cannula, did require an increase today. GENERAL: Awake, alert, no acute distress. LUNGS: Diminished bases with very minimal end expiratory somewhat wheezing. Oxygen at 5 L via nasal cannula. HEENT: EOMI. NECK: Supple. CARDIOVASCULAR: Regular rate and rhythm. No murmur. ABDOMEN: Bowel sounds positive. Soft. Tender to general palpation. No guarding. EXTREMITIES: Without pitting edema. No clubbing, cyanosis, or marked swelling. NEUROLOGICAL: GCS 15. Nonfocal. LABORATORY DATA: WBC 5.18, hemoglobin 11.4, hematocrit 33.8, and platelets 238. Sodium 135, potassium 3.4, chloride 106, CO2 of 17, anion gap 15.4, BUN 6, creatinine 0.71, estimated GFR greater than 60, and glucose 141. Hemoglobin A1c 8.9%. Calcium 7.8, phosphorus 2.3, total bilirubin 0.5, AST 38, ALT 22, and alkaline phosphatase 33. Total protein 5.8. Albumin 2.2. On 01/20, Coronavirus by PCR detected. No new radiology results. ASSESSMENT AND PLAN: 1. Atypical viral multifocal community-acquired pneumonia, present on arrival due to coronavirus disease-19 with possible superimposed bacterial component. Pulmonology and Infectious Disease continue to follow. Azithromycin/Rocephin. Wean oxygen as tolerated. The patient is requiring an increase in oxygen from about 3 L to 5 L/minute via nasal cannula. Continue Lovenox. 2. Diarrhea with inadequate oral intake. 3. Questran t.i.d. ordered, scheduled. We will also add p.r.n. Lomotil, Glucerna t.i.d. added to cardiac diet as she has limited ability to chew, we will change to ADA soft diet with Glucerna t.i.d. 4. Uncontrolled type 2 diabetes mellitus. Serum glucose 141. Hemoglobin A1c 8.9%. Monitor fingerstick blood glucose. 5. Controlled hypertension. Blood pressure 124/78. Continue same. Monitor BP. 6. Mild acute hypokalemia. Potassium level 3.4. Potassium chloride 40 mEq p.o. once ordered per Pulmonology. Appreciate recs. 7. Mild acute hyponatremia. Sodium level 135 (134), monitor. 8. Transaminitis and elevated lipase. AST 38, lipase 122. Monitor. 9. Metabolic acidosis. Serum CO2 of 17 (16), monitor. 10. Prophylaxis. Lovenox and Pepcid. BILLING CODE: 54222. TIME SPENT: 35 minutes. Dictated by Marvin Sanchez NP MD GREGORY VallejoP/MODL /[id number]
[2020-01-23] MEDS: ENOXAPARIN SOD INJ 40 MG/0.4 ML SYR SC SCH (17:11)
--- NOTE | 2020-01-23 19:30 | NUR ---
Patient oxygen saturation at 60% oxygen at 4L/min. Place patient to non rebreather mask. Patient is alert and oriented. Oxygen saturation at 91 %. RR at 30 b/min. Called DR Thompson no answer. Called Dr Jiménez no answer. Voicemail left to both MDs.
--- NOTE | 2020-01-23 20:02 | NUR ---
Spoke with Marvin BEYER. No new orders. States to contact Dr. Thompson. Called Dr. Thompson still no answer.
--- NOTE | 2020-01-23 20:19 | NUR ---
Patient is calmer. Oxygen Saturation at 92%. Charge nurse is aware. Dr. Thompson is at ICU for some procedure.. Will closely Monitor patient.
--- NOTE | 2020-01-23 20:27 | NUR ---
Called ICU no available bed at this time. Marvin BEYER made aware.
[2020-01-23] MEDS: AMITRIPTYLINE HCL 10 MG TAB PO SCH (21:00)
--- NOTE | 2020-01-23 22:00 | NUR ---
Report given to
--- NOTE | 2020-01-23 22:25 | NUR ---
Transfer patient to ICU.
--- NOTE | 2020-01-23 22:30 | NUR ---
Received to 193 from [facility]BS. Placed on EKG, pulse ox and NBP for monitoring.
--- NOTE | 2020-01-23 22:31 | NUR ---
aMrvin BEYER is aware of that patient was transferred to room 193
--- NOTE | 2020-01-23 23:15 | NUR ---
O2 sats 78-80. Placed on Vapotherm 40L and 100%.
--- NOTE | 2020-01-23 23:18 | NUR ---
Sats now 92-93%.
[2020-01-24] VITALS (21 sets, daily range): BP systolic 82–151; BP diastolic 41–79
--- NOTE | 2020-01-24 02:40 | NUR ---
Call from Dr. Antione Thompson. Advised of O2 sats and vapotherm settings. Orders to add nonrebreather mask.. Placed on Nonrebreather in addition to Vapotherm.
[2020-01-24 05:03] LABS: HEMATOCRIT 36.4 % (34.2-44.1); HEMOGLOBIN 12.5 g/dL (12.0-16.0); LYMPHOCYTES # (AUTO) 1.4 (1.0-3.2); LYMPHOCYTES % 26.6 % (18.0-39.1); MEAN CORPUSCULAR HEMOGLOBIN 29.3 pg (28-32); MEAN CORPUSCULAR HGB CONC 34.3 g/dL (31-35); MEAN CORPUSCULAR VOLUME 85.2 fL (81-99); MONOCYTES # (AUTO) 0.3 (0.2-0.8); MONOCYTES % 5.2 % (4.4-11.3); NEUTROPHILS # (AUTO) 3.5 (2.1-6.9); NEUTROPHILS % 67.8 % (38.7-80.0); PLATELET COUNT 285 x10e3/uL (140-360); RED BLOOD COUNT 4.27 x10e6/uL (3.6-5.1); RED CELL DISTRIBUTION WIDTH 13.1 % (11.7-14.4)
[2020-01-24 05:23] LABS: PHOSPHORUS 2.5 MG/DL (2.3-4.7)
[2020-01-24 05:48] LABS: ALANINE AMINOTRANSFERASE 23 IU/L (0-55); ALBUMIN 2.3 g/dL (3.5-5.0); ALBUMIN/GLOBULIN RATIO 0.5 (0.8-2.0); ALKALINE PHOSPHATASE 38 IU/L (40-150); BLOOD UREA NITROGEN 9 mg/dL (7-26); BUN/CREATININE RATIO 12 (6-25); CALCIUM 8.4 mg/dL (8.4-10.2); CARBON DIOXIDE 16 mmol/L (22-29); CHLORIDE 108 mmol/L (98-107); CREATININE, SERUM 0.75 mg/dL (0.57-1.11); EST GLOMERULAR FILTRATION RATE > 60 ML/MIN (60-); GLUCOSE 173 mg/dL (74-118); SODIUM 137 mmol/L (136-145)
[2020-01-24] MEDS: INSULIN REGULAR, HUMAN 100 UNIT/1 ML 3ML VIAL SQ SCH ×2 (07:30→23:57)
[2020-01-24] MEDS ORDERED: POTASSIUM CHLORIDE 20MEQ/100ML 100 ML IV ONE (08:00)
--- NOTE | 2020-01-24 08:33 | Progress Note ---
DATE: Pulmonary Critical Care Progress Note SUBJECTIVE: The patient was transferred to the Intensive Care Unit last night. She was placed on a Vapotherm of 40 L with 100% oxygen. She is on 100% non-rebreather over the Vapotherm. She does not complain of dyspnea or distress. She does have some diarrhea. OBJECTIVE: VITAL SIGNS: The patient is afebrile, but her T-max was 99.4. The blood pressure is 109/52 and the heart rate is 81. Saturation is 92% on a Vapotherm at 40 L and 100%. HEENT: Shows no facial swelling or erythema. CARDIAC: Reveals regular rate and rhythm with normal S1 and S2. LUNGS: Auscultation of lungs reveals crackles at the bases. There is no wheezing. ABDOMEN: Soft, nontender. There is no rebound or guarding. EXTREMITIES: Shows no leg edema or calf tenderness. There is no cyanosis or clubbing. SKIN: Shows no rashes. NEUROLOGICAL: Shows no focal abnormalities. LABORATORY DATA: Potassium is 3 and the CO2 is 16. The AST is 48, and albumin is 2.3. The white blood cell count is 5.1 and hemoglobin is 12.5. The platelet count is 285. ASSESSMENT: 1. Acute respiratory failure. 2. Viral pneumonia and coronavirus disease -19 infection. 3. Non-anion gap acidosis secondary to diarrhea. 4. Diabetes. 5. Hypertension. 6. Hypokalemia. PLAN: 1. Continue Vapotherm. 2. ABG. 3. Low-dose bicarbonate and fluids. 4. Continue to monitor blood sugars and give insulin as needed. 5. Continue remdesivir. 6. Obtain specialty bed to prevent decubitus ulcers. 7. Attention to nutrition. 8. Case discussed with night time nanny nursing, dayshift nursing, Infectious Disease, Internal Medicine, Respiratory, and patient. 9. Greater than 35 minutes in direct critical care time. Richard Thompson MD [facility]ARD[facility] /[id number]
[2020-01-24] MEDS: ZINC SULFATE 220 MG CAP PO SCH (09:00)
[2020-01-24] MEDS ORDERED: SODIUM BICARBONATE 8.4% 100 ML in DEXTROSE 5% 1,000 ML IV ONE (09:00)
[2020-01-24] MEDS ORDERED: SODIUM BICARBONATE 650 MG TAB PO SCH (09:00)
[2020-01-24] MEDS: POTASSIUM CHLORIDE 20 MEQ TAB CR PO SCH (09:00)
--- NOTE | 2020-01-24 09:30 | Diagnostic Imaging Report ---
EXAMINATION: CHEST SINGLE (PORTABLE) INDICATION: ^resp failure ^[id number] ^0455 COMPARISON: Chest radiograph 01/22/2020 FINDINGS: TUBES and LINES: Multiple EKG leads overlie the patient. LUNGS: Lungs are moderately inflated. Interval increase in bilateral interstitial and airspace opacities, most notably at the left lung base. PLEURA: No pleural effusion or pneumothorax. HEART AND MEDIASTINUM: Unchanged BONES AND SOFT TISSUES: No acute osseous injury UPPER ABDOMEN: No free air under the diaphragm. IMPRESSION: Interval increase in bilateral interstitial and airspace opacities, concerning for multifocal pneumonia. Signed by: Obi Manley MD on 01/24/2020 9:27 AM
[2020-01-24] MEDS: CHOLESTYRAMINE 4 GM PACKET PO SCH ×3 (10:00→21:28)
[2020-01-24] MEDS ORDERED: MIDAZOLAM HCL 2 MG/2 ML VIAL ONE (10:12)
[2020-01-24] MEDS ORDERED: MIDAZOLAM HCL 5MG/ML 10ML VIAL 100 ML IV ONE (10:35)
[2020-01-24] MEDS: MIDAZOLAM HCL 5MG/ML 10ML VIAL 100 ML IV PRN ×3 (11:25→23:47)
--- NOTE | 2020-01-24 11:39 | Operative Report ---
DATE OF PROCEDURE: SURGEON: Richard Thompson MD PROCEDURE: Endotracheal intubation. PREOPERATIVE DIAGNOSIS: Acute respiratory failure. POSTOPERATIVE DIAGNOSIS: Acute respiratory failure. CONSENT: Consent was obtained from the patient. MEDICATIONS: Etomidate 20 mg IV and succinylcholine 100 mg IV and Versed 2 mg IV. PROCEDURE IN DETAIL: The patient was placed in a supine position. She was sedated initially with Versed. She was preoxygenated with an Ambu bag to increase her saturation to 90%. A 3-0 MAC blade and GlideScope was then used to place a 7.5 endotracheal tube. The tube was passed on the first attempt. There were good breath sounds bilaterally and good CO2 return. COMPLICATIONS: None. ESTIMATED BLOOD LOSS: None. Richard Thompson MD [facility] /[id number]
[2020-01-24] MEDS ORDERED: POTASSIUM CHLORIDE 10MEQ/100ML 0 ML ONE (13:47)
[2020-01-24] MEDS ORDERED: POTASSIUM CHLORIDE 20MEQ/100ML 100 ML ONE (13:48)
--- NOTE | 2020-01-24 13:51 | Diagnostic Imaging Report ---
EXAMINATION: CHEST XRAY LINE PLACEMENT INDICATION: Line insertion COMPARISON: Chest radiograph of earlier the same day FINDINGS: LINES/TUBES:Endotracheal tube terminates 5 cm above the adriana. Right PICC line terminates at the superior cavoatrial junction. LUNGS:Lungs are moderately inflated. Unchanged bilateral multifocal patchy opacities. PLEURA:No pleural effusion or pneumothorax. MEDIASTINUM:The cardiomediastinal silhouette appears normal in size and shape. BONES/SOFT TISSUES:No acute osseous injury. ABDOMEN:No free air under the diaphragm. IMPRESSION: Right PICC line terminates at the superior cavoatrial junction. Endotracheal tube terminates 5 cm above the adriana. Unchanged bilateral multifocal patchy opacities consistent with multifocal pneumonia. Signed by: Obi Manley MD on 01/24/2020 1:48 PM
[2020-01-24] MEDS: REMDESIVIR 100 MG IN 0.9% NS 100 ML IV SCH (14:00)
[2020-01-24] MEDS: AZITHROMYCIN 500MG/NS 250 ML 250 ML IV SCH (14:19)
[2020-01-24] MEDS: FAMOTIDINE 20 MG/2 ML VIAL IV SCH ×2 (14:19→18:37)
[2020-01-24] MEDS: FENTANYL 2000MCG/NS 250 250 ML IV PRN (16:30)
[2020-01-24 17:26] LABS: ABG HCO3 20 mmol/L (22-26); ABG PCO2 33 mmHg (35-45); ABG PH 7.39 (7.35-7.45); ABG PO2 322 mmHg (80-105)
[2020-01-24 17:34] LABS: ABG HCO3 16 mmol/L (22-26); ABG PCO2 25 mmHg (35-45); ABG PH 7.43 (7.35-7.45); ABG PO2 65 mmHg (80-105)
[2020-01-24] MEDS: ENOXAPARIN SOD INJ 40 MG/0.4 ML SYR SC SCH (18:37)
--- NOTE | 2020-01-24 18:45 | NUR ---
Report received. Assumed care. Assessment done. See interventions. Orally intubated. Vent settings: TV 400, FIO2 65%, PRVC 24 & PEEP 12. NGT to right nare. Restraints in place for safety. Skin beneath cuff intact. IVs: NaHCO3 drip at 50ml/hr x 1 bag, Fentanyl @ 150 mcg/hr or 18.8 ml/hr & Versed @ 7mg/hr or 14ml/hr. Addendum: 01/24/20 at 2217 by Mira Woodard RN NGT is in left nare not right.
--- NOTE | 2020-01-24 19:45 | Diagnostic Imaging Report ---
Exam: Limited abdominal film Clinical History: 4 enteric tube placement Comparison: AP chest 01/24/2020 DISCUSSION: See impression. IMPRESSION: 1. Enteric tube below the left hemidiaphragm with distal tip projecting likely in the second portion of the duodenum. 2. No pneumoperitoneum. 3. Hazy bilateral lower lobe airspace opacities, unchanged since prior chest x-ray The staff physician below has personally reviewed this exam on the date of dictation. Signed by: Dr. Issa Schmid M.D. on 01/24/2020 7:42 PM
--- NOTE | 2020-01-24 20:15 | NUR ---
BP high 70s. Call to Dr. Antione Thompson. Advised of vs & labs. Orders given.
--- NOTE | 2020-01-24 20:28 | NUR ---
ABG drawn for RT.
[2020-01-24] MEDS ORDERED: ALBUMIN 25% 12.5GM 0.25 GM/ML BTL IV ONE (20:30)
--- NOTE | 2020-01-24 20:35 | NUR ---
Albumin started to give a total 50gm.
[2020-01-24 20:49] LABS: ABG PCO2 29 mmHg (35-45); ABG PO2 77 mmHg (80-105)
[2020-01-24 20:50] LABS: ABG HCO3 19 mmol/L (22-26)
--- NOTE | 2020-01-24 21:25 | NUR ---
Call to Dr. Sarmiento. Celia reported. Vent setting changes given. Called RT to give orders.
[2020-01-24] MEDS: AMITRIPTYLINE HCL 10 MG TAB PO SCH (21:42)
[2020-01-24] MEDS: NOREPINEPHRINE INJ 4MG/4ML 8 MG in DEXTROSE 5% 250ML 250 ML IV SCH (22:10)
--- NOTE | 2020-01-24 22:10 | NUR ---
MBP cont to be less than 60. Levophed started at 5mcg.
--- NOTE | 2020-01-24 22:45 | NUR ---
Blood pressure up to 155/71. Levophed off.
[2020-01-25] VITALS (26 sets, daily range): BP systolic 64–155; BP diastolic 39–70
[2020-01-25] MEDS: ACETAMINOPHEN 325 MG TAB PO PRN ×2 (03:00→21:04)
--- NOTE | 2020-01-25 03:45 | NUR ---
BP 76/41. Levophed restarted.
[2020-01-25 05:07] LABS: BASOPHILS % 0.1 % (0.0-1.0); HEMATOCRIT 29.3 % (34.2-44.1); HEMOGLOBIN 9.5 g/dL (12.0-16.0); LYMPHOCYTES # (AUTO) 1.1 (1.0-3.2); LYMPHOCYTES % 11.6 % (18.0-39.1); MEAN CORPUSCULAR HEMOGLOBIN 28.4 pg (28-32); MEAN CORPUSCULAR HGB CONC 32.4 g/dL (31-35); MEAN CORPUSCULAR VOLUME 87.7 fL (81-99); MONOCYTES # (AUTO) 0.2 (0.2-0.8); MONOCYTES % 2.1 % (4.4-11.3); NEUTROPHILS % 85.5 % (38.7-80.0); PLATELET COUNT 283 x10e3/uL (140-360); RED BLOOD COUNT 3.34 x10e6/uL (3.6-5.1); RED CELL DISTRIBUTION WIDTH 13.6 % (11.7-14.4)
[2020-01-25 05:31] LABS: ALBUMIN 2.6 g/dL (3.5-5.0); ALBUMIN/GLOBULIN RATIO 0.8 (0.8-2.0); ANION GAP 13.8 mmol/L (8-16); CALCIUM 7.8 mg/dL (8.4-10.2); CREATININE, SERUM 0.94 mg/dL (0.57-1.11)
[2020-01-25 05:35] LABS: POTASSIUM 2.8 mmol/L (3.5-5.1)
[2020-01-25] MEDS: INSULIN REGULAR, HUMAN 100 UNIT/1 ML 3ML VIAL SQ SCH ×2 (06:00→12:14)
[2020-01-25] MEDS ORDERED: POTASSIUM CHLORIDE 20MEQ/15ML UDC ONE (06:25)
--- NOTE | 2020-01-25 06:25 | NUR ---
K+ 2.8. Called to Dr. Thompson. Orders given. KCL 40meq elixir per NGT given. Tube feeding Glucerna 1.2 started at 30ml/hr.
[2020-01-25] MEDS ORDERED: POTASSIUM CHLORIDE 20MEQ/15ML UDC NG ONE ×2 (06:30→12:45)
[2020-01-25] MEDS: FAMOTIDINE 20 MG/2 ML VIAL IV SCH ×2 (08:02→17:03)
[2020-01-25] MEDS: ZINC SULFATE 220 MG CAP PO SCH (08:02)
[2020-01-25] MEDS: AZITHROMYCIN 500MG/NS 250 ML 250 ML IV SCH (08:02)
--- NOTE | 2020-01-25 09:03 | Diagnostic Imaging Report ---
TECHNIQUE: Frontal view of the chest. INDICATION: ^resp Failure ^[id number] ^0610 COMPARISON: Prior day. IMPRESSION: Lines and hardware: Interval placement of an enteric catheter, with the tip below the diaphragm and out of the field of view. Heart and mediastinum: Stable. Lungs and pleura: Slightly worsened bilateral patchy airspace opacities. No pleural effusion. No pneumothorax. Soft tissues and bones: No acute abnormality. Signed by: Parth Limon MD on 01/25/2020 9:00 AM
[2020-01-25 09:07] LABS: CLARITY,URINE SL CLOUDY (CLEAR); COLOR,URINE YELLOW (YELLOW); KETONES,URINE 1+ (NEGATIVE); LEUKOCYTE ESTERASE ,URINE NEGATIVE (NEGATIVE); NITRITE,URINE POSITIVE (NEGATIVE); PROTEIN,URINE DIPSTICK >=300 (NEGATIVE)
[2020-01-25 09:08] LABS: BILIRUBIN,URINE SMALL (NEGATIVE); URINE UROBILINOGEN 0.2 mg/dL (0.2 - 1)
[2020-01-25 09:14] LABS: BACTERIA,URINE MANY /HPF; EPITHELIAL CELLS,URINE FEW /LPF; RBC,URINE 0-5 /HPF (0-5)
[2020-01-25 09:17] LABS: RENAL EPITHELIAL CELLS,URINE RARE
[2020-01-25] MEDS: POTASSIUM CHLORIDE 20MEQ/15ML UDC NG SCH (09:19)
[2020-01-25] MEDS: CHOLESTYRAMINE 4 GM PACKET PO SCH (09:19)
[2020-01-25] MEDS ORDERED: DEXTROSE 50% SYRINGE 50 ML IV PRN (12:30)
[2020-01-25] MEDS: CEFTRIAXONE SOD 2 GM/NS 100 ML 100 ML IV SCH (12:43)
[2020-01-25] MEDS ORDERED: VECURONIUM BROMIDE FOR INJ 20 MG VIAL IV STA (12:44)
[2020-01-25] MEDS ORDERED: VECURONIUM BROMIDE FOR INJ 20 MG VIAL ONE (12:53)
--- NOTE | 2020-01-25 12:55 | Progress Note ---
DATE: SUBJECTIVE: Ms. Durham remains in intensive care unit. This is day #4. She is on FiO2 of 70% down from 90, day #2 remdesivir. The patient continues on azithromycin, insulin, and Rocephin, on potassium supplement as needed. PHYSICAL EXAMINATION: GENERAL: She is intubated and sedated. VITAL SIGNS: Stable. She is still running fever. HEENT: She is not icteric. NECK: Supple. CHEST: Few crackles bilateral. COR: S1 and S2. ABDOMEN: Soft. IMPRESSION: COVID-19, on remdesivir as ordered. Continue Rocephin for 5 days. Continue azithromycin for 5 days. Lovenox as ordered. Vitamin C and zinc supplement. We will follow. MD ARLYN Lea/ELVA /[id number]
[2020-01-25] MEDS: REMDESIVIR 100 MG IN 0.9% NS 100 ML IV SCH (13:02)
--- NOTE | 2020-01-25 13:30 | Progress Note ---
DATE: SUBJECTIVE: The patient remains on a PRVC mode of ventilation at a rate of 26 with a PEEP of 14 and the FiO2 of 65%. Tidal volume is set at 400. She remains on Versed at 7 mg as well as fentanyl. She is receiving enteral feedings as well as Lovenox. She is completing her remdesivir. PHYSICAL EXAMINATION: VITAL SIGNS: The blood pressure is 127/70, saturation is 99%. The pulse is 91. The patient is on a PRVC mode of ventilation at a rate of 24 with tidal volume of 400 and PEEP of 14. FiO2 is set at 65%. HEENT: Shows no facial swelling or erythema. There is an oral endotracheal tube. CARDIAC: Reveals regular rate and rhythm with normal S1 and S2. LUNGS: Auscultation of lungs shows clear breath sounds bilaterally. There is no wheezing. ABDOMEN: Soft nontender. There is no rebound or guarding. EXTREMITIES: Shows no leg edema. NEUROLOGICAL: Shows the patient to be sedated. LABORATORY DATA: BUN to creatinine ratio is 15 to 0.94. Potassium is 2.8 and carbon dioxide is 20. Glucose is 207 to 215. Albumin is 2.6. White blood cell count is 9.35 and hemoglobin is 9.5. The platelet count is 283. RADIOGRAPHIC DATA: Chest x-ray shows bilateral infiltrates. IMPRESSION: 1. Acute respiratory failure. 2. Viral pneumonia and coronavirus disease-19. 3. Diabetes. 4. Hypokalemia. 5. Hypoalbuminemia. 6. Hypertension. PLAN: 1. Continue current ventilation. The patient will have a repeat ABG later this evening. We will continue lung protective strategy. 2. Continue enteral feedings. 3. Begin insulin drip. 4. Complete remdesivir. 5. Begin dexamethasone after completion of her remdesivir. 6. Continue specialty bed to prevent decubitus ulcers. 7. Continue DVT prophylaxis. 8. Case discussed with nursing staff, Respiratory, Infectious Disease, Internal Medicine, and family. Greater than 35 minutes in direct critical care time. MD PASTORA Easton/ELVA /[id number]
[2020-01-25 13:50] LABS: ABG HCO3 21 mmol/L (22-26); ABG PCO2 35 mmHg (35-45); ABG PH 7.37 (7.35-7.45); ABG PO2 73 mmHg (80-105)
[2020-01-25] MEDS: INSULIN REGULAR, HUMAN 3ML VL 100 UNIT in SODIUM CHLORIDE 0.9% 100 ML IV SCH ×2 (14:26)
[2020-01-25] MEDS: FENTANYL 2000MCG/NS 250 250 ML IV PRN (14:27)
--- NOTE | 2020-01-25 16:46 | NUR ---
Nutrition Intervention Note RD Recommendation(s) for Physician: -Recommend modifying tube feed formula to Vital High Protein @ goal rate of 60 mL/hr to better meet estimated nutritional needs (provides 1440 kcal, 126 g protein, and 1204 mL water) -Fluid management per MD Plan of Care: RD following, monitoring for tolerance and adequacy, tube feed recommendation Nutrition reason for involvement: enteral nutrition RD Assessment (01/25/20) Pt is a 69 year old female admitted with abdominal pain and hypoxia. Pt is COVID-19+ and is currently intubated. Tube feedings were started. There are no previous weights in chart. Nutrition history is limited at this time. Recommendations provided and will continue to monitor. Principal Problems/Diagnoses: abdominal pain and hypoxia PMH: HTN, diabetes I/O: 1970/ GI: soft, non-tender abdomen, last recorded BM 01/23 Skin: intact Labs: (01/24) Na 139, K 2.8, BUN 15, Glu 193, Ca 7.8, AST 38 Meds: antibiotics, insulin, zinc sulfate, norepinphrine, fentanyl, lovenox, hydralazine, zofran Ht: 64 inches Wt: 165 lbs BMI: 28.3 kg/m2 IBW: 120 lbs Malnutrition Evaluation (01/25/20) Unable to assess. Will re-evaluate at follow-up as appropriate. Nutrition Prescription (Diet Order): Glucerna 1.2 @ 30 mL/hr (provides 864 kcal and 43 g protein) Estimated Nutritional Needs: 2858-2387 calories/day (18-20 kcal/kg CBW) 90-150 g protein/day (1.2-2 g pro/kg CBW) Diet Adequacy: Not meeting calorie needs, Not meeting protein needs Tolerance: Tolerating TF Diet Education Needs Assessment: Diet education not indicated, patient on temporary/transition diet. Nutrition Care Level: moderate Nutrition Diagnosis: Inadequate oral intake related to acute respiratory failure/mechanical ventilation as evidenced by need for enteral nutrition. Goal: Patient will meet 75-100% of estimated needs by follow up Progress: N/A Interventions: -Composition, Rate, Route, Recommended Modifications, Collaboration with other providers Monitoring/Evaluation: -Total energy intake, Total protein intake, Formula/Solution, Weight change Signed: Sindhu Hazel RD, LD
[2020-01-25] MEDS: ENOXAPARIN SOD INJ 40 MG/0.4 ML SYR SC SCH (17:03)
[2020-01-25] MEDS: MIDAZOLAM HCL 5MG/ML 10ML VIAL 100 ML IV PRN ×2 (17:04→21:35)
[2020-01-25 20:57] LABS: ABG HCO3 21 mmol/L (22-26); ABG PCO2 44 mmHg (35-45); ABG PH 7.29 (7.35-7.45); ABG PO2 79 mmHg (80-105)
[2020-01-25] MEDS: AMITRIPTYLINE HCL 10 MG TAB PO SCH (21:03)
[2020-01-25] MEDS: NOREPINEPHRINE INJ 4MG/4ML 8 MG in DEXTROSE 5% 250ML 250 ML IV SCH (23:00)
[2020-01-26] VITALS (26 sets, daily range): BP systolic 77–160; BP diastolic 43–90
[2020-01-26] MEDS: FENTANYL 2000MCG/NS 250 250 ML IV PRN ×3 (00:58→17:53)
[2020-01-26] MEDS: MIDAZOLAM HCL 5MG/ML 10ML VIAL 100 ML IV PRN ×4 (03:15→23:00)
[2020-01-26 06:44] LABS: BASOPHILS % 0.1 % (0.0-1.0); EOSINOPHILS # (AUTO) 0.1 (0.0-0.4); EOSINOPHILS % 0.7 % (0.0-6.0); HEMATOCRIT 32.4 % (34.2-44.1); HEMOGLOBIN 10.6 g/dL (12.0-16.0); LYMPHOCYTES # (AUTO) 1.1 (1.0-3.2); MEAN CORPUSCULAR HEMOGLOBIN 28.6 pg (28-32); MEAN CORPUSCULAR HGB CONC 32.7 g/dL (31-35); MEAN CORPUSCULAR VOLUME 87.6 fL (81-99); MONOCYTES # (AUTO) 0.1 (0.2-0.8); MONOCYTES % 1.3 % (4.4-11.3); NEUTROPHILS # (AUTO) 8.9 (2.1-6.9); NEUTROPHILS % 86.1 % (38.7-80.0); PLATELET COUNT 362 x10e3/uL (140-360); RED CELL DISTRIBUTION WIDTH 14.5 % (11.7-14.4)
[2020-01-26 07:09] LABS: ALANINE AMINOTRANSFERASE 18 IU/L (0-55); ALBUMIN 2.2 g/dL (3.5-5.0); ALBUMIN/GLOBULIN RATIO 0.6 (0.8-2.0); ALKALINE PHOSPHATASE 37 IU/L (40-150); ANION GAP 12.7 mmol/L (8-16); BLOOD UREA NITROGEN 20 mg/dL (7-26); BUN/CREATININE RATIO 24 (6-25); CALCIUM 8.1 mg/dL (8.4-10.2); CARBON DIOXIDE 20 mmol/L (22-29); CHLORIDE 110 mmol/L (98-107); CREATININE, SERUM 0.82 mg/dL (0.57-1.11); EST GLOMERULAR FILTRATION RATE > 60 ML/MIN (60-); GLUCOSE 92 mg/dL (74-118); POTASSIUM 3.7 mmol/L (3.5-5.1); SODIUM 139 mmol/L (136-145)
[2020-01-26] MEDS: FAMOTIDINE 20 MG/2 ML VIAL IV SCH ×2 (08:06→16:46)
[2020-01-26] MEDS: AZITHROMYCIN 500MG/NS 250 ML 250 ML IV SCH (08:06)
[2020-01-26] MEDS: ZINC SULFATE 220 MG CAP PO SCH (08:07)
[2020-01-26] MEDS: POTASSIUM CHLORIDE 20MEQ/15ML UDC NG SCH (08:07)
[2020-01-26 08:19] LABS: ABG HCO3 22 mmol/L (22-26); ABG PCO2 44 mmHg (35-45); ABG PH 7.31 (7.35-7.45); ABG PO2 83 mmHg (80-105)
--- NOTE | 2020-01-26 08:44 | Diagnostic Imaging Report ---
EXAMINATION: CHEST SINGLE (PORTABLE) INDICATION: Respiratory failure COMPARISON: Chest radiograph 01/24/2020 FINDINGS: LINES/TUBES:Support lines and tubes unchanged. LUNGS:The lungs are moderately inflated. Slight interval increase in bilateral patchy multifocal patchy opacities. PLEURA:No pleural effusion or pneumothorax. MEDIASTINUM:The cardiomediastinal silhouette appears unchanged in size and shape. BONES/SOFT TISSUES:No acute osseous injury. ABDOMEN:No free air under the diaphragm. IMPRESSION: Slight interval increase in patchy multifocal bilateral opacities concerning for pneumonia. Signed by: Obi Manley MD on 01/26/2020 8:40 AM
[2020-01-26] MEDS ORDERED: ALBUMIN 25% 25GM 100ML 0.25 GM/ML BTL IV ONE (09:00)
--- NOTE | 2020-01-26 09:08 | Progress Note ---
DATE: SUBJECTIVE: The patient has a temperature today and is requiring IV Tylenol. She remains on PRVC mode of ventilation at a rate of 26 with a tidal volume of 400 and a PEEP of 14. FiO2 is set at 55%. She is saturating 100%. PHYSICAL EXAMINATION: VITAL SIGNS: Blood pressure is 105/62. HEENT: No facial swelling or erythema. There is an oral endotracheal tube in place. The patient has a PICC line. She has an NG tube. CARDIAC: Reveals regular rate and rhythm with a normal S1, S2. LUNGS: Auscultation of lungs reveals clear breath sounds bilaterally. There is no wheezing. ABDOMEN: Soft and nontender. There is no rebound or guarding. EXTREMITIES: No leg edema or calf tenderness. There is no cyanosis or clubbing. SKIN: No rashes. NEUROLOGICAL: No focal abnormalities. LABORATORY DATA: The BUN to creatinine ratio is 20 to 0.82. Potassium is 3.7 and the carbon dioxide is 20. Albumin is 2.2. White blood cell count is 10.3 and hemoglobin is 10.6. The platelet count is 362. RADIOGRAPHIC DATA: Chest x-ray shows bilateral infiltrates. IMPRESSION: 1. Acute respiratory failure. 2. Viral pneumonia and coronavirus disease-19 infection. 3. Diabetes. 4. Hypokalemia. 5. Hypertension. PLAN: 1. Continue to wean FiO2 as tolerated. 2. Continue lung protective strategy. 3. Repeat ABG this evening. 4. Continue enteral feedings. 5. Insulin drip as needed. 6. Continue dexamethasone. 7. DVT prophylaxis. 8. Case discussed with nursing staff, family, Respiratory, Infectious Disease, and administration. Greater than 35 minutes in direct critical care time. Richard Thompson MD [facility] /[id number]
[2020-01-26] MEDS ORDERED: ALBUMIN 25% 25GM 100ML 100 ML IV ONE (09:30)
[2020-01-26] MEDS: ACETAMINOPHEN 1000 MG/100 ML IV PRN ×2 (09:44→22:00)
[2020-01-26] MEDS: ASCORBIC ACID 500 MG TAB PO SCH ×2 (09:58→16:46)
[2020-01-26] MEDS: INSULIN REGULAR, HUMAN 3ML VL 100 UNIT in SODIUM CHLORIDE 0.9% 100 ML IV SCH ×2 (10:45)
[2020-01-26 11:14] LABS: LYMPHOCYTES % (MANUAL) 10 % (19-48); MONOCYTES % (MANUAL) 1 % (3.4-9.0); NEUTROPHILS % (MANUAL) 89 % (40-74)
[2020-01-26] MEDS: CEFTRIAXONE SOD 2 GM/NS 100 ML 100 ML IV SCH (11:41)
[2020-01-26] MEDS: REMDESIVIR 100 MG IN 0.9% NS 100 ML IV SCH (13:32)
[2020-01-26] MEDS: ENOXAPARIN SOD INJ 40 MG/0.4 ML SYR SC SCH (16:46)
[2020-01-26] MEDS: NOREPINEPHRINE INJ 4MG/4ML 8 MG in DEXTROSE 5% 250ML 250 ML IV SCH (16:47)
[2020-01-26] MEDS ORDERED: FUROSEMIDE INJ 10 MG/ML 2 ML VIAL IV SCH (18:15)
--- NOTE | 2020-01-26 18:36 | NUR ---
Pt having temp of 103. Dr. Michelle rodriguez and joey notified. Orders given for cooling blanket and IV Tylenol. Dr. Michelle rodriguez notified of low urine output. Orders given for albumin and renal consult. Dr. Castillo informed of consult, and gave orders for Lasix.
--- NOTE | 2020-01-26 19:01 | Progress Note ---
DATE: 01/24/2020 This is a late entry. SUBJECTIVE: The patient still complains of shortness of breath and dyspnea on exertion. She is having an increased oxygen need. She transferred to the ICU last night. She had been on oxygen at 5 L/minute via nasal cannula yesterday morning, but this morning, she is on Vapotherm 40 L and 100% non-rebreather mask together and per Dr. Thompson, she is going to require intubation. She has also had a cough, inability to eat, multiple diarrhea stools lately, and abdominal pain. OBJECTIVE: VITAL SIGNS: Temperature 99.0, heart rate 80, blood pressure 127/61, respiratory rate 33, oxygen saturation 85%. HEENT: EOMI. LUNGS: Bibasilar crackles without wheezing. NECK: Supple. No JVD. CARDIAC: Regular rate and rhythm without murmur. ABDOMEN: Bowel sounds positive. Soft, nontender. No rebound or guarding. EXTREMITIES: No pitting edema. No clubbing, cyanosis, or marked swelling. NEUROLOGIC: Nonfocal. LABORATORY DATA: WBC 5.16, hemoglobin 12.5, hematocrit 36.4, platelets 285. ABG, pH 7.43, pCO2 of 25, PO2 of 65, HC03 of 16, oxygen saturation 94%, base excess -8. This is on the Vapotherm and non-rebreather mask together. Sodium 137, potassium 3.0, chloride 108, CO2 of 16, anion gap 16, BUN 9, creatinine 0.75, estimated GFR greater than 60, glucose 173, calcium 8.4, total bilirubin 0.5. AST 48, ALT 23, alkaline phosphatase 38, total protein 6.5, albumin 2.3, phosphorus 2.5, magnesium 2.0. IMAGING: Chest x-ray this morning shows interval increase in bilateral interstitial and airspace opacities concerning for multifocal pneumonia. ASSESSMENT AND PLAN: 1. Acute respiratory failure, atypical viral multifocal community-acquired pneumonia, present on arrival due to coronavirus disease 2018 with possible superimposed bacterial component. Infectious Disease and Pulmonology continued to follow. Continue Vapotherm non-rebreather mask. Dr. Thompson will intubate and the patient will require mechanical ventilation. Continue azithromycin and Lovenox. 2. Diarrhea with inadequate oral intake. Continue scheduled Questran and p.r.n. Lomotil as tolerated. 3. Uncontrolled type 2 diabetes mellitus. Monitor fingerstick blood glucose levels. Sliding scale insulin. Hemoglobin A1c 8.9%. 4. Controlled hypertension. Blood pressure 127/61. Monitor. 5. Mild acute hypokalemia. Potassium level 3.0 (3.4). Replete. 6. Mild acute transaminitis and elevated lipase. AST 48 (38), lipase 122 on 01/20. 7. Metabolic acidosis, secondary to diarrhea. Serum CO2 of 16. Monitor. Sodium bicarbonate and fluids. 8. Prophylaxis, Lovenox and Pepcid. Billing code [id number]. Time spent 35 minutes. Dictated by Marvin Sanchez, KAYLEEN Eric Jiménez MD [facility] /[id number]
--- NOTE | 2020-01-26 20:16 | Progress Note ---
DATE: 01/25/2020 CONSULTING PHYSICIANS: Dr. Raul Fernandez with Infectious Disease and Dr. Richard Thompson with Pulmonology/Critical Care Medicine. SUBJECTIVE: The patient is sedated with Versed and fentanyl drips. She remains in ICU and is now on mechanical ventilation. She was intubated yesterday by Dr. Thompson. OBJECTIVE: VITAL SIGNS: Temperature 99.5, heart rate 80, blood pressure 141/60, respirations 26, oxygen saturation 95%. HEAD: Atraumatic, normocephalic. LUNGS: Clear to auscultation shows a size 7.5 ET tube. Currently, on mechanical ventilation on PRVC mode with an FiO2 of 65%. HEENT: EOMI. Left knee air NG tube with Glucerna 1.2 at 30 mL an hour. NECK: Supple. CARDIOVASCULAR: regular rate and rhythm. No murmur. She has a left upper extremity PICC line. ABDOMEN: Bowel sounds positive. Soft, nontender. EXTREMITIES: No pitting edema. No clubbing, cyanosis, or marked swelling. NEUROLOGIC: Nonfocal, sedated. LABORATORY DATA: ABG temperature 97.5 degrees, pH 7.37, pCO2 of 35.2, PO2 of 73, base excess -5, HC03 of 20.6, CO2 of 22, SaO2 of 95% on FiO2 of 70%. WBC 9.35, hemoglobin 9.5, hematocrit 29.3, platelets 283. Sodium 139, potassium 2.8, chloride 108, CO2 of 20, anion gap 13.8. BUN 15, creatinine 0.94, estimated GFR 59, glucose 193, calcium 7.8, total bilirubin 0.9. AST 38, ALT 15, alkaline phosphatase 31, total protein 6, albumin 2.6. Urinalysis was 2+ glucose, 1+ ketones, positive for nitrite, negative for leukocyte esterase, WBC 6 to 10, many bacteria. Sputum Gram stain culture and sensitivity to be collected today. IMAGING: Chest x-ray this morning showed interval placement of enteric catheter with the tip below the diaphragm, slightly worsened bilateral patchy airspace opacities. No pleural effusion and no pneumothorax. ASSESSMENT AND PLAN: 1. Acute renal failure. Continue mechanical ventilation and follow up on ABG results. Ventilator changes by Pulmonology/Critical Care Medicine. 2. Atypical viral multifocal community-acquired pneumonia, present on arrival due to coronavirus disease 2018 with possible superimposed bacterial component. Pulmonology and Infectious Disease following. Continue Remdesivir, azithromycin, Rocephin, ventilatory support, Lovenox. 3. Diarrhea and inadequate nutrition intake, Questran and Lomotil continue. She is now on Glucerna enteral feeds. 4. Uncontrolled type 2 diabetes mellitus. Hemoglobin A1c 8.9%. Titrate insulin drip. 5. Controlled hypertension. Blood pressure 141/60. Monitor BP. Continue same. 6. Acute hypokalemia. Potassium level 2.8, replete. Follow up on potassium level tomorrow. 7. Transaminitis. AST 38. Monitor. 8. Metabolic acidosis. Serum CO2 of 20 (16). Monitor. There are plans to begin dexamethasone after completion of Remdesivir. Billing code [id number]. Time spent 35 minutes. Dictated by Marvin Sanchez NP MD GREGORY VallejoP/MODL /[id number]
--- NOTE | 2020-01-26 20:21 | Progress Note ---
DATE: SUBJECTIVE: Ms. Durham remains in intensive care unit. The patient is seen and examined. Chart reviewed. The patient is intubated. She has fever. PHYSICAL EXAMINATION: GENERAL: She is intubated. VITAL SIGNS: Stable, currently afebrile. HEENT: She is not icteric. NECK: Supple. CHEST: Few crackles bilateral. HEART: S1, S2. No S3, S4, or murmur. ABDOMEN: Soft. EXTREMITIES: No edema. SKIN: No rash. She has an NG tube. She has a PICC line. IMPRESSION: Acute respiratory failure. COVID-19. Diabetes mellitus, hypokalemia, hypertension, slowly getting better. Continue to finish the course of remdesivir and Rocephin, azithromycin, dexamethasone. Continue to wean her as slowly as possible. Discussed with medical team. MD ARLYN Lea/MODL /[id number]
[2020-01-26] MEDS: AMITRIPTYLINE HCL 10 MG TAB PO SCH (21:45)
[2020-01-27] VITALS (23 sets, daily range): BP systolic 79–138; BP diastolic 45–61
[2020-01-27 00:41] LABS: ABG PH 7.38 (7.35-7.45)
[2020-01-27 00:42] LABS: ABG HCO3 22 mmol/L (22-26); ABG PCO2 37 mmHg (35-45); ABG PO2 74 mmHg (80-105)
[2020-01-27] MEDS: FENTANYL 2000MCG/NS 250 250 ML IV PRN ×2 (02:00→10:00)
[2020-01-27] MEDS: MIDAZOLAM HCL 5MG/ML 10ML VIAL 100 ML IV PRN ×2 (05:30→21:40)
[2020-01-27] MEDS: ACETAMINOPHEN 325 MG TAB PO PRN (05:45)
[2020-01-27 05:48] LABS: BASOPHILS % 0.2 % (0.0-1.0); EOSINOPHILS # (AUTO) 0.1 (0.0-0.4); EOSINOPHILS % 0.9 % (0.0-6.0); LYMPHOCYTES # (AUTO) 0.9 (1.0-3.2); MEAN CORPUSCULAR HEMOGLOBIN 28.8 pg (28-32); MEAN CORPUSCULAR HGB CONC 33.3 g/dL (31-35); MEAN CORPUSCULAR VOLUME 86.5 fL (81-99); MONOCYTES # (AUTO) 0.2 (0.2-0.8); MONOCYTES % 1.8 % (4.4-11.3); NEUTROPHILS # (AUTO) 8.3 (2.1-6.9); NEUTROPHILS % 87.5 % (38.7-80.0); PLATELET COUNT 383 x10e3/uL (140-360); RED BLOOD COUNT 3.47 x10e6/uL (3.6-5.1); RED CELL DISTRIBUTION WIDTH 14.8 % (11.7-14.4)
[2020-01-27 06:11] LABS: ALANINE AMINOTRANSFERASE 17 IU/L (0-55); ALBUMIN 2.1 g/dL (3.5-5.0); ALBUMIN/GLOBULIN RATIO 0.6 (0.8-2.0); ALKALINE PHOSPHATASE 40 IU/L (40-150); ANION GAP 10.7 mmol/L (8-16); BLOOD UREA NITROGEN 19 mg/dL (7-26); BUN/CREATININE RATIO 28 (6-25); CALCIUM 7.9 mg/dL (8.4-10.2); CARBON DIOXIDE 23 mmol/L (22-29); CHLORIDE 110 mmol/L (98-107); CREATININE, SERUM 0.69 mg/dL (0.57-1.11); EST GLOMERULAR FILTRATION RATE > 60 ML/MIN (60-); GLUCOSE 93 mg/dL (74-118); POTASSIUM 3.7 mmol/L (3.5-5.1); SODIUM 140 mmol/L (136-145)
[2020-01-27] MEDS ORDERED: FUROSEMIDE INJ 10 MG/ML 2 ML VIAL IV ONE (08:30)
--- NOTE | 2020-01-27 08:44 | Diagnostic Imaging Report ---
EXAMINATION: CHEST SINGLE (PORTABLE) INDICATION: Respiratory failure COMPARISON: Chest radiograph 01/26/2020 FINDINGS: LINES/TUBES:Support lines and tubes unchanged. LUNGS:The lungs are moderately inflated. Unchanged bilateral patchy multifocal patchy opacities. PLEURA:No pleural effusion or pneumothorax. MEDIASTINUM:The cardiomediastinal silhouette appears unchanged in size and shape. BONES/SOFT TISSUES:No acute osseous injury. ABDOMEN:No free air under the diaphragm. IMPRESSION: Unchanged patchy multifocal bilateral opacities concerning for pneumonia. Signed by: Obi Manley MD on 01/27/2020 8:41 AM
[2020-01-27 08:58] LABS: ABG HCO3 22 mmol/L (22-26); ABG PCO2 36 mmHg (35-45); ABG PH 7.39 (7.35-7.45); ABG PO2 106 mmHg (80-105)
--- NOTE | 2020-01-27 09:34 | Progress Note ---
DATE: Pulmonary Critical Care Progress Note SUBJECTIVE: The patient remains sedated on Versed 5 mg and fentanyl 200 mcg. Versed was just increased at 8. She continues on a PRVC mode of ventilation at a rate of 24 with tidal volume of 400, at a rate of 26 and FiO2 of 60%. Her PEEP is set at 14. The patient did urinate with Lasix yesterday. She remains on low-dose insulin drip. PHYSICAL EXAMINATION: VITAL SIGNS: The blood pressure is 138/53, respiratory rate is 26. Saturation is 99%. She is on a PRVC mode of ventilation as noted above. She is on Levophed at 2 mcg. No facial swelling. She has a nasogastric tube in place. She has an oral endotracheal tube. There is a PICC line. CARDIAC: Reveals regular rate and rhythm with normal S1, S2. LUNGS: Auscultation of lungs reveals crackles at the bases. There is no wheezing. ABDOMEN: Soft nontender. There is no rebound or guarding. EXTREMITIES: Shows 1 to 2+ edema. NEUROLOGICAL: Shows the patient to be sedated. LABORATORY DATA: White blood cell count is 9.5 and hemoglobin is 10. The platelet count is 383. The BUN to creatinine ratio is 19 to 0.69. Other electrolytes are within normal limits. Albumin is 2.1. RADIOGRAPHIC DATA: Chest x-ray shows persistent bilateral infiltrates. IMPRESSION: 1. Acute respiratory failure. 2. Viral pneumonia and COVID-19 infection. 3. Diabetes. 4. Hypertension. 5. Electrolyte abnormalities. PLAN: 1. Continue to use Versed and fentanyl for sedation. 2. Continue current ventilator settings with a lung protective strategy. Wean as tolerated. 3. Continue insulin drip as needed. 4. Lovenox for DVT prophylaxis. 5. The patient is on a specialty bed to prevent decubitus ulcers. 6. Wean Levophed as tolerated. 7. Provone boots to prevent footdrop. 8. Continue Decadron. Case discussed with piano regulator inspector nursing, dayshift nursing, Respiratory, family, Infectious Disease, and Internal Medicine. Greater than 35 minutes in direct critical care time. MD PASTORA Easton/ELVA /[id number]
[2020-01-27] MEDS: FAMOTIDINE 20 MG/2 ML VIAL IV SCH ×2 (10:57→18:45)
[2020-01-27] MEDS: DEXAMETHASONE SOD PHOS 10 MG/1 ML VIAL IV SCH (10:57)
[2020-01-27] MEDS: EYE LUBRICANT OPTH OINT 3.5GM TUBE OP SCH (10:59)
[2020-01-27] MEDS: POTASSIUM CHLORIDE 20MEQ/15ML UDC NG SCH (10:59)
[2020-01-27] MEDS: ZINC SULFATE 220 MG CAP PO SCH (10:59)
[2020-01-27] MEDS: ASCORBIC ACID 500 MG TAB PO SCH ×2 (10:59→18:45)
[2020-01-27] MEDS: AZITHROMYCIN 500MG/NS 250 ML 250 ML IV SCH (11:30)
[2020-01-27] MEDS ORDERED: VECURONIUM BROMIDE FOR INJ 20 MG VIAL IV STA (12:32)
[2020-01-27] MEDS ORDERED: VANCOMYCIN 1GM/NS 250 ML 250 ML IV ONE (12:45)
[2020-01-27] MEDS ORDERED: ROCURONIUM BROMIDE 10 MG/ML 5ML VIAL IV ONE (13:15)
[2020-01-27] MEDS: REMDESIVIR 100 MG IN 0.9% NS 100 ML IV SCH (14:29)
--- NOTE | 2020-01-27 15:34 | NUR ---
Nutrition Intervention Note RD Recommendation(s) for Physician: -Recommend modifying tube feed formula to Vital High Protein @ goal rate of 60 mL/hr to better meet estimated nutritional needs (provides 1440 kcal, 126 g protein, and 1204 mL water) -Fluid management per MD Plan of Care: RD following, monitoring for tolerance and adequacy, tube feed recommendation Nutrition reason for involvement: follow up RD Assessment 01/26: Follow up. Pt remains intubated and sedated. Pt is tolerating tube feedings. Current RD recommendations remain appropriate. Informed RN of recommendation. Will continue to monitor. (01/25/20) Pt is a 69 year old female admitted with abdominal pain and hypoxia. Pt is COVID-19+ and is currently intubated. Tube feedings were started. There are no previous weights in chart. Nutrition history is limited at this time. Recommendations provided and will continue to monitor. Principal Problems/Diagnoses: abdominal pain and hypoxia PMH: HTN, diabetes I/O: 2598/925 GI: soft, non-tender abdomen, last recorded BM 01/23 Skin: intact Labs: 01/26: Na 140, K 3.7, BUN 19, Cr 0.69, Glu 93, Ca 7.9, AST 44 (01/24) Na 139, K 2.8, BUN 15, Glu 193, Ca 7.8, AST 38, HgbA1c 8.9% (01/22) Meds: vitamin C, zinc sulfate, pepcid, fentanyl, norepinpehrine, lovenox, insulin, lasix, zofran Ht: 64 inches Wt: 165 lbs BMI: 28.3 kg/m2 IBW: 120 lbs Malnutrition Evaluation (01/25/20) Unable to assess. Will re-evaluate at follow-up as appropriate. Nutrition Prescription (Diet Order): Glucerna 1.2 @ 30 mL/hr (provides 864 kcal and 43 g protein) Estimated Nutritional Needs: 0536-2057 calories/day (18-20 kcal/kg CBW) 90-150 g protein/day (1.2-2 g pro/kg CBW) Diet Adequacy: Not meeting calorie needs, Not meeting protein needs Tolerance: Tolerating TF Diet Education Needs Assessment: Diet education not indicated, patient on temporary/transition diet. Nutrition Care Level: moderate Nutrition Diagnosis: Inadequate oral intake related to acute respiratory failure/mechanical ventilation as evidenced by need for enteral nutrition. Goal: Patient will meet 75-100% of estimated needs by follow up Progress: not progressing with current tube feed order Interventions: -Composition, Rate, Route, Recommended Modifications, Collaboration with other providers Monitoring/Evaluation: -Total energy intake, Total protein intake, Formula/Solution, Weight change Signed: Sindhu Hazel RD, LD
[2020-01-27] MEDS ORDERED: VANCOMYCIN 1GM/NS 250 ML 250 ML ONE (16:44)
[2020-01-27] MEDS: MEROPENEM 1GM 100 ML IV SCH ×2 (16:48→22:00)
--- NOTE | 2020-01-27 18:15 | Progress Note ---
DATE: SUBJECTIVE: Ms. Durham remains in intensive care unit, intubated. She is sedated. She is on fentanyl . PRVC mode with a rate of 24, tidal volume 400, FiO2 of 60%, and PEEP of 14. PHYSICAL EXAMINATION: HEENT: Normocephalic. NECK: Supple. CHEST: Few crackles. COR: S1, S2. No murmur. ABDOMEN: Soft. Bowel sounds present. EXTREMITIES: No edema. IMPRESSION AND PLAN: Coronavirus disease-19. So far, her sputum cultures negative. White count 9.5, hemoglobin 10. She is on dexamethasone. She is currently on meropenem, which we started today. Concerned about superimposing bacterial pneumonia. We will reassess in the morning. MD ARLYN Lea/ELVA /[id number]
--- NOTE | 2020-01-27 18:20 | Consultation ---
DATE OF CONSULTATION: 01/27/2020 Nephrology Consultation REASON FOR CONSULTATION: Decreased urine output, electrolytes management. HISTORY OF PRESENT ILLNESS: A 69-year-old female, morbidly obese, who has been here since 01/21/2020, found to be in respiratory failure secondary to COVID pneumonia, now intubated in the ICU, who is doing relatively okay, in which Nephrology has been consulted due to underlying decreased urine output. In further review, the patient continues to have fever and also occasionally has some evidence of hypotension. Of note, back on January 25, her systolic blood pressure was in the 70s. Further review shows the patient had a CT with contrast of the abdomen and pelvis on 01/20. There is no family at bedside to obtain any further information and information being obtained is from the note and nursing staff. REVIEW OF SYSTEMS: Cough, congestion, fever. Unable to obtain the rest of 14-point review of systems, as the patient is currently intubated. ALLERGIES: NO KNOWN DRUG ALLERGIES. HOME MEDICATIONS: Flexeril, glipizide, metformin, simvastatin, sumatriptan, amitriptyline, loratadine, and tramadol. PAST MEDICAL HISTORY: Hypertension, hyperlipidemia, migraine headaches, and chronic pain. PAST SURGICAL HISTORY: Unable to obtain. FAMILY HISTORY: Unable to obtain. SOCIAL HISTORY: Unable to obtain. PHYSICAL EXAMINATION: VITAL SIGNS: Temperature currently is 100.9, pulse 78, respiratory rate is 15, blood pressure 109/58, and pulse ox 99%. Oxygen saturation on a mechanical ventilator, intubated and sedated. FiO2 32% reported. GENERAL: Intubated and sedated. PULMONARY: Intubated and sedated. CARDIOVASCULAR: Positive S1 and S2. No murmurs, rubs, or gallops appreciated. ABDOMEN: Soft, nondistended, and nontender to palpation. Bowel sounds present. MUSCULOSKELETAL: Unable to assess. NEUROLOGIC: Unable to assess. SKIN: Intact. Warm to touch. Good cap refill. PSYCHIATRIC: Unable to assess. EXTREMITIES: No edema. Good range of motion throughout. LABORATORY DATA: Show white count 9.5, hemoglobin 10, hematocrit is 30, and platelets of 383. ABG; pH of 7.39, pCO2 of 36, PaO2 106, bicarbonate was 22, and FiO2 60. Chemistry; sodium 140, potassium 3.7, chloride 110, bicarb 23, anion gap of 10, BUN is 19, creatinine is 0.69, glucose is 93, and calcium is 7.9. AST 44, ALT 17, alkaline phosphatase 40, and total bilirubin is 0.4. Total protein is 5.8 and albumin 2.1. Procalcitonin is pending. MICROBIOLOGY: None. IMAGING STUDIES: Chest x-ray shows unchanged patchy multifocal bilateral opacities, concerning for pneumonia. IMPRESSION: 1. Oliguria, likely due to blood pressure fluctuations. 2. Electrolyte abnormalities. 3. Acute respiratory failure secondary to COVID pneumonia. PLAN: From a renal standpoint, the patient is doing well, has much improved urine output after given diuretics. Electrolytes are stable. We will replace electrolytes accordingly. Potassium is 3.7. We will get a magnesium level in the morning including repeat labs. I did review the chart. She did have some systolic blood pressure in the 70s back on 01/26/2020, which could be playing a role. This could be signs of possible ATN. We will be able to tell unless we see the changes in the next 48 to 72 hours. She did receive contrast on 01/21/2020, which puts her way out from contrast-induced nephropathy. On any rate, we will continue to monitor very closely and avoid nephrotoxic agents. Once again thank you so much for this consultation. MD MUSA Sainz/MODL /[id number]
[2020-01-27] MEDS: ENOXAPARIN SOD INJ 40 MG/0.4 ML SYR SC SCH (18:49)
[2020-01-27] MEDS: NOREPINEPHRINE INJ 4MG/4ML 8 MG in DEXTROSE 5% 250ML 250 ML IV SCH (20:15)
[2020-01-27] MEDS: AMITRIPTYLINE HCL 10 MG TAB PO SCH (21:00)
[2020-01-27 21:10] LABS: ABG HCO3 25 mmol/L (22-26); ABG PCO2 39 mmHg (35-45); ABG PH 7.43 (7.35-7.45); ABG PO2 83 mmHg (80-105)
[2020-01-28] VITALS (24 sets, daily range): BP systolic 91–145; BP diastolic 54–83
[2020-01-28 05:51] LABS: BASOPHILS % 0.1 % (0.0-1.0); HEMATOCRIT 29.6 % (34.2-44.1); HEMOGLOBIN 9.8 g/dL (12.0-16.0); LYMPHOCYTES # (AUTO) 0.6 (1.0-3.2); LYMPHOCYTES % 7.6 % (18.0-39.1); MEAN CORPUSCULAR HEMOGLOBIN 28.8 pg (28-32); MEAN CORPUSCULAR HGB CONC 33.1 g/dL (31-35); MEAN CORPUSCULAR VOLUME 87.1 fL (81-99); MONOCYTES # (AUTO) 0.2 (0.2-0.8); MONOCYTES % 2.5 % (4.4-11.3); NEUTROPHILS # (AUTO) 7.2 (2.1-6.9); NEUTROPHILS % 88.9 % (38.7-80.0); PLATELET COUNT 260 x10e3/uL (140-360)
[2020-01-28 06:09] LABS: ALANINE AMINOTRANSFERASE 17 IU/L (0-55); ALBUMIN/GLOBULIN RATIO 0.5 (0.8-2.0); ALKALINE PHOSPHATASE 53 IU/L (40-150); BLOOD UREA NITROGEN 21 mg/dL (7-26); BUN/CREATININE RATIO 30 (6-25); CALCIUM 8.1 mg/dL (8.4-10.2); CARBON DIOXIDE 27 mmol/L (22-29); CHLORIDE 110 mmol/L (98-107); CREATININE, SERUM 0.69 mg/dL (0.57-1.11); EST GLOMERULAR FILTRATION RATE > 60 ML/MIN (60-); GLUCOSE 216 mg/dL (74-118); SODIUM 144 mmol/L (136-145)
[2020-01-28] MEDS: MEROPENEM 1GM 100 ML IV SCH ×3 (06:37→22:14)
[2020-01-28] MEDS: INSULIN REGULAR, HUMAN 3ML VL 100 UNIT in SODIUM CHLORIDE 0.9% 100 ML IV SCH ×2 (06:49)
--- NOTE | 2020-01-28 07:31 | Diagnostic Imaging Report ---
EXAMINATION: CHEST SINGLE (PORTABLE) INDICATION: ^resp failure ^[id number] ^0510 COMPARISON: 01/27/2020 FINDINGS: AP view TUBES and LINES: Unchanged endotracheal tube and nasogastric tube. Unchanged right PICC. LUNGS: Unchanged diffuse pulmonary airspace disease. PLEURA: Questionable small bilateral pleural effusions. No pneumothorax. HEART AND MEDIASTINUM: The cardiomediastinal silhouette is unremarkable. BONES AND SOFT TISSUES: No acute osseous lesion. Soft tissues are unremarkable. UPPER ABDOMEN: No free air under the diaphragm. IMPRESSION: Unchanged diffuse pulmonary airspace disease consistent with provided history of viral pneumonia. Signed by: William Oliveira MD on 01/28/2020 7:28 AM
[2020-01-28 08:26] LABS: ABG HCO3 25 mmol/L (22-26); ABG PCO2 38 mmHg (35-45); ABG PH 7.43 (7.35-7.45); ABG PO2 84 mmHg (80-105)
[2020-01-28] MEDS: MIDAZOLAM HCL 5MG/ML 10ML VIAL 100 ML IV PRN ×2 (10:30→18:10)
[2020-01-28] MEDS: FAMOTIDINE 20 MG/2 ML VIAL IV SCH ×2 (10:39→17:24)
[2020-01-28] MEDS: DEXAMETHASONE SOD PHOS 10 MG/1 ML VIAL IV SCH (10:39)
[2020-01-28] MEDS: FUROSEMIDE INJ 10 MG/ML 2 ML VIAL IV SCH (10:39)
[2020-01-28] MEDS: EYE LUBRICANT OPTH OINT 3.5GM TUBE OP SCH (10:40)
[2020-01-28] MEDS: POTASSIUM CHLORIDE 20MEQ/15ML UDC NG SCH (10:40)
[2020-01-28] MEDS: ASCORBIC ACID 500 MG TAB PO SCH ×2 (10:40→17:24)
[2020-01-28] MEDS: ZINC SULFATE 220 MG CAP PO SCH (10:40)
--- NOTE | 2020-01-28 11:58 | Progress Note ---
DATE: SUBJECTIVE: The patient remains on a PRVC mode of ventilation at a rate of 24 with a tidal volume of 400 and PEEP of 14. Her saturation is 60%. She is on fentanyl at 225 mcg and Versed at 8 mg. She is still receiving enteral feedings. PHYSICAL EXAMINATION: VITAL SIGNS: The patient is afebrile. The blood pressure is 128/63 and the pulse is 63. HEENT: The ventilator settings are as noted above. There is an oral endotracheal tube. There is a nasogastric tube. The patient has a PICC line in place. CARDIAC: Regular rate and rhythm with normal S1, S2. LUNGS: Auscultation of lungs shows decreased breath sounds at the bases. There is no wheezing. ABDOMEN: Soft, nontender. There is no rebound or guarding. EXTREMITIES: No leg edema or calf tenderness. There is no cyanosis or clubbing. SKIN: No rashes. NEUROLOGICAL: The patient to be sedated. RADIOGRAPHIC DATA: Chest x-ray shows bilateral pulmonary infiltrates. LABORATORY DATA: Sodium is 144. BUN to creatinine ratio is 21 to 0.69, glucose is 216, and albumin is 2. The white blood cell count is 8 and hemoglobin is 9.8. The platelet count is 260. IMPRESSION: 1. Acute respiratory failure. 2. Viral pneumonia and coronavirus disease-19 infection. 3. Diabetes. 4. Acute kidney injury. PLAN: 1. Continue current ventilator settings. Use lung protective strategy. 2. Repeat ABG later this evening. 3. Continue enteral feedings. 4. Continue insulin drip. 5. Continue dexamethasone. 6. Lovenox for deep venous thrombosis prophylaxis. 7. Specialty bed to prevent decubitus ulcers. Case discussed with dayshift nursing, worksite wellness practitioner nursing, Respiratory, family, Infectious Disease, and Internal Medicine. Greater than 35 minutes in direct critical care time. Richard Thompson MD [facility]/MODL /[id number]
[2020-01-28] MEDS: FENTANYL 2000MCG/NS 250 250 ML IV PRN ×2 (14:00→21:00)
[2020-01-28] MEDS: ENOXAPARIN SOD INJ 40 MG/0.4 ML SYR SC SCH (17:24)
--- NOTE | 2020-01-28 18:44 | Progress Note ---
DATE: SUBJECTIVE: Ms. Lopez remains in intensive care unit, but clinically seems to be getting better. She remains on PRVC ventilation of 24, tidal volume of 400, PEEP 14, O2 saturation on FiO2 of 60%. PHYSICAL EXAMINATION: GENERAL: She is intubated and sedated. VITAL SIGNS: Stable. HEENT: Not icteric. NECK: Supple. CHEST: Few crackles bilateral. COR: S1 and S2. ABDOMEN: Soft. IMPRESSION: Respiratory failure, status post pneumonia, status post coronavirus disease-19, diabetes mellitus. Continue insulin drip. Continue Lovenox. Continue dexamethasone as ordered. Medication list reviewed. She is currently on meropenem. I am waiting for procalcitonin. She has come back within normal limits. We can discontinue meropenem. Her fever could be and hyperactivity but seems clinically to be improving. MD ARLYN Lea/MODL /[id number]
[2020-01-28] MEDS: NOREPINEPHRINE INJ 4MG/4ML 8 MG in DEXTROSE 5% 250ML 250 ML IV SCH (20:15)
[2020-01-28 20:48] LABS: ABG PCO2 43 mmHg (35-45); ABG PH 7.41 (7.35-7.45)
[2020-01-28 20:49] LABS: ABG HCO3 27 mmol/L (22-26); ABG PO2 53 mmHg (80-105)
[2020-01-28] MEDS: AMITRIPTYLINE HCL 10 MG TAB PO SCH (21:00)
[2020-01-29] VITALS (22 sets, daily range): BP systolic 100–143; BP diastolic 55–80
--- NOTE | 2020-01-29 | Progress Note ---
DATE: 01/28/2020 SUBJECTIVE: The patient was evaluated early this afternoon. She was still intubated. No overnight events. She is still requiring significant amount of oxygen on a mechanical ventilator. OBJECTIVE: VITAL SIGNS: Temperature is 98.1, pulse is 58, respiratory rate is 24, blood pressure 114/79, pulse ox 93%. She is on a mechanical ventilator. GENERAL: No acute distress, intubated and sedated. PULMONARY: Intubated and sedated. CARDIOVASCULAR: Positive S1 and S2. No murmurs, rubs, or gallops appreciated. ABDOMEN: Soft, nondistended, nontender to palpation. Bowel sounds present. MUSCULOSKELETAL: Unable to assess. Intubated and sedated. NEUROLOGIC: Intubated and sedated. SKIN: Intact. Warm to touch. Good cap refill. EXTREMITIES: No edema appreciated. LABORATORY DATA: Labs show white count 8, hemoglobin 9.8, hematocrit is 29.6, and platelets of 260. Chemistry; sodium was 144, potassium 4, chloride 110, bicarb 27, anion gap 11, BUN 21, creatinine is 0.69, glucose was 216, calcium is 8.1. Urine output good 1.7 L recorded. MICROBIOLOGY: Sputum cultures were negative. IMPRESSION: 1. Oliguria, now nonoliguric secondary to blood pressure fluctuation, now improved. 2. Electrolyte abnormalities-replace. 3. Acute respiratory failure secondary to coronavirus disease 2019 pneumonia. PLAN: At this time from a renal standpoint, replace electrolytes accordingly. Creatinine is improved and stable. Urine output improved. Maintain elevated blood pressure readings. Otherwise, we will get repeat labs in the morning. Avoid nephrotoxic agents. MD MUSA Sainz/MODL /[id number]
[2020-01-29] MEDS: FENTANYL 2000MCG/NS 250 250 ML IV PRN ×3 (03:00→21:30)
[2020-01-29 05:29] LABS: BASOPHILS % 0.3 % (0.0-1.0); EOSINOPHILS % 0.3 % (0.0-6.0); HEMATOCRIT 55.5 % (34.2-44.1); LYMPHOCYTES # (AUTO) 0.2 (1.0-3.2); LYMPHOCYTES % 7.4 % (18.0-39.1); MEAN CORPUSCULAR HEMOGLOBIN 28.8 pg (28-32); MEAN CORPUSCULAR HGB CONC 32.4 g/dL (31-35); MEAN CORPUSCULAR VOLUME 88.7 fL (81-99); MONOCYTES # (AUTO) 0.1 (0.2-0.8); MONOCYTES % 3.3 % (4.4-11.3); NEUTROPHILS # (AUTO) 2.6 (2.1-6.9); NEUTROPHILS % 86.4 % (38.7-80.0); PLATELET COUNT 118 x10e3/uL (140-360); RED BLOOD COUNT 6.26 x10e6/uL (3.6-5.1)
[2020-01-29 05:43] LABS: ALANINE AMINOTRANSFERASE 14 IU/L (0-55); ALBUMIN/GLOBULIN RATIO 0.6 (0.8-2.0); ALKALINE PHOSPHATASE 60 IU/L (40-150); ANION GAP 11.2 mmol/L (8-16); BLOOD UREA NITROGEN 33 mg/dL (7-26); BUN/CREATININE RATIO 49 (6-25); CALCIUM 7.8 mg/dL (8.4-10.2); CARBON DIOXIDE 27 mmol/L (22-29); CHLORIDE 112 mmol/L (98-107); CREATININE, SERUM 0.67 mg/dL (0.57-1.11); EST GLOMERULAR FILTRATION RATE > 60 ML/MIN (60-); GLUCOSE 183 mg/dL (74-118); POTASSIUM 4.2 mmol/L (3.5-5.1); SODIUM 146 mmol/L (136-145)
[2020-01-29] MEDS: MEROPENEM 1GM 100 ML IV SCH ×3 (06:38→21:49)
[2020-01-29 07:04] LABS: ABG PH 7.45 (7.35-7.45)
[2020-01-29 07:05] LABS: ABG HCO3 27 mmol/L (22-26); ABG PCO2 39 mmHg (35-45); ABG PO2 56 mmHg (80-105)
[2020-01-29 07:21] LABS: BASOPHILS % 0.2 % (0.0-1.0); HEMATOCRIT 30.7 % (34.2-44.1); HEMOGLOBIN 9.8 g/dL (12.0-16.0); LYMPHOCYTES # (AUTO) 0.8 (1.0-3.2); LYMPHOCYTES % 7.9 % (18.0-39.1); MEAN CORPUSCULAR HEMOGLOBIN 28.3 pg (28-32); MEAN CORPUSCULAR HGB CONC 31.9 g/dL (31-35); MEAN CORPUSCULAR VOLUME 88.7 fL (81-99); MONOCYTES # (AUTO) 0.5 (0.2-0.8); MONOCYTES % 4.9 % (4.4-11.3); NEUTROPHILS # (AUTO) 8.5 (2.1-6.9); NEUTROPHILS % 84.6 % (38.7-80.0); PLATELET COUNT 245 x10e3/uL (140-360); RED BLOOD COUNT 3.46 x10e6/uL (3.6-5.1); RED CELL DISTRIBUTION WIDTH 15.3 % (11.7-14.4)
--- NOTE | 2020-01-29 07:46 | Diagnostic Imaging Report ---
EXAMINATION: CHEST SINGLE (PORTABLE) COMPARISON: Chest x-ray 01/28/2020 INDICATION: Intubated, COVID ^resp failure ^[id number] ^3950 DISCUSSION: Frontal view of the chest obtained at 0558 hours. HEART AND MEDIASTINUM: The cardiomediastinal silhouette is unremarkable. LINES: Endotracheal tube terminates 6 to 7 cm above the adriana. Enteric tube extends past the diaphragm. Right PICC line terminates in the SVC. LUNGS/PLEURA: Multifocal pulmonary infiltrates are redemonstrated and stable in severity. No new pulmonary findings. No pleural effusion or pneumothorax. BONES AND SOFT TISSUES: Unremarkable. IMPRESSION: 1. Support devices as described above. 2. Stable multifocal infiltrates consistent with atypical (viral) pneumonia. Signed by: Dr. Jovanna Finch MD on 01/29/2020 7:42 AM
[2020-01-29] MEDS: MIDAZOLAM HCL 5MG/ML 10ML VIAL 100 ML IV PRN ×3 (09:34→22:00)
[2020-01-29] MEDS: DEXAMETHASONE SOD PHOS 10 MG/1 ML VIAL IV SCH (09:35)
--- NOTE | 2020-01-29 10:06 | Progress Note ---
DATE: SUBJECTIVE: The patient remains on mechanical ventilation. She is on 70% oxygen with 14 of PEEP. Her tidal volume is set at 400 and respiratory rate is 24. She remains on low-dose Levophed as well as Versed and fentanyl. She is also on an insulin drip. PHYSICAL EXAMINATION: VITAL SIGNS: The patient is afebrile. The blood pressure is 100/71 and respiratory rate is 27. Pulse is 70. She is on a PRVC mode of ventilation as noted above. HEENT: Shows no facial swelling or erythema. CARDIAC: Reveals regular rate and rhythm with normal S1 and S2. LUNGS: Auscultation of lungs reveals rhonchorous breath sounds bilaterally. There is no wheezing. ABDOMEN: Soft and nontender. There is no rebound or guarding. EXTREMITIES: Shows no leg edema or calf tenderness. There is no cyanosis or clubbing. SKIN: Shows no rashes. NEUROLOGICAL: Shows no focal abnormalities. The patient is sedated. LABORATORY DATA: White blood cell count is 10.05 and the hemoglobin is 9.8. The platelet count is 245. BUN to creatinine ratio is 33 to 0.67 and the sodium is 146. The blood sugar is 165. Albumin is 2. IMPRESSION: 1. Acute respiratory failure. 2. Viral pneumonia and COVID-19 infection. 3. Diabetes. 4. Acute kidney injury. PLAN: 1. Continue current ventilator settings. 2. Lung protective strategy. 3. Monitor ABG. 4. Continue enteral feedings. 5. Continue insulin drip. 6. Continue dexamethasone. 7. Continue Lovenox for DVT prophylaxis. 8. Case discussed with bottom turning lathe tender nursing, day shift nursing, Respiratory, family, Internal Medicine, Infectious Disease and administration. Greater than 35 minutes in direct critical care time. Richard Thompson MD [facility]/MODL /[id number]
[2020-01-29] MEDS: ASCORBIC ACID 500 MG TAB PO SCH ×2 (10:31→17:00)
[2020-01-29] MEDS: ZINC SULFATE 220 MG CAP PO SCH (10:33)
--- NOTE | 2020-01-29 15:47 | Progress Note ---
DATE: SUBJECTIVE: Ms. Durham remains on the ventilator on 70% oxygenation, 14 of PEEP. OBJECTIVE: HEENT : Normocephalic. NECK: Supple. CHEST: Clear. HEART: S1, S2. No murmurs. ABDOMEN: Soft. She is obese. LABORATORY DATA: Reviewed. White count is 10, hemoglobin 9.8, creatinine of 0.67. IMPRESSION: Respiratory failure, COVID-19, diabetes mellitus, acute kidney injury, remains on the ventilator. There is no fever. She is currently on meropenem day #2, Lovenox, dexamethasone. Continue supportive care. Raul Fernandez MD [facility]S/MODL /[id number]
[2020-01-29] MEDS: POTASSIUM CHLORIDE 20MEQ/15ML UDC NG SCH (16:55)
[2020-01-29] MEDS: FUROSEMIDE INJ 10 MG/ML 2 ML VIAL IV SCH (16:55)
[2020-01-29] MEDS: EYE LUBRICANT OPTH OINT 3.5GM TUBE OP SCH (16:55)
[2020-01-29] MEDS: FAMOTIDINE 20 MG/2 ML VIAL IV SCH ×2 (16:55→17:00)
--- NOTE | 2020-01-29 17:18 | Progress Note ---
DATE: 01/29/2020 Nephrology Progress Note SUBJECTIVE: The patient is still intubated and sedated. Her blood pressure is still relatively low this morning. VITAL SIGNS: VITAL SIGNS: Temperature is 98.2, pulse 73, respiratory rate is 26, blood pressure 100/71, and pulse ox is 95% on mechanical ventilator. GENERAL: Intubated and sedated. PULMONARY: Intubated and sedated, on mechanical ventilator. CARDIOVASCULAR: Positive S1, S2. No murmurs, rubs, or gallops appreciated. ABDOMEN: Soft, nondistended, tender to palpation. Bowel sounds present. MUSCULOSKELETAL: Unable to assess, intubated and sedated. SKIN: Intact. Warm to touch. Good cap refill. PSYCHIATRIC: Intubated and sedated. EXTREMITIES: No edema appreciated. LABORATORY DATA: Labs show white count 10, hemoglobin 9.8, hematocrit is 31, and platelets of 245. Chemistry, sodium 146, potassium 4.2, chloride 112, bicarb 27, anion gap of 11, BUN is 33, creatinine is 0.67, and glucose is 183. Microbiology none. IMAGING STUDIES: Chest x-ray this morning still shows stable multifocal infiltrates consistent with atypical viral pneumonia. IMPRESSION: 1. Nonoliguria secondary to blood pressure fluctuations, now hypotensive again. 2. Electrolyte abnormality, replace. 3. Respiratory failure secondary to coronavirus pneumonia. PLAN: At this time from a renal standpoint, electrolytes are stable, but her blood pressure is relatively low, which could likely lead to ATN, worsening renal function. We will get repeat labs in the morning. Repeat electrolytes as well. Avoid nephrotoxic agents. Discussed with nursing staff. MD MUSA Sainz/MODL /[id number]
--- NOTE | 2020-01-29 20:00 | NUR ---
Dr. Michelle Thompson rounding on unit, informed of ABG results. No new orders. Informed MD of pt's swelling upper extremities, ordered one time dose of Albumin 50gm and 20mg Lasix.
[2020-01-29] MEDS: NOREPINEPHRINE INJ 4MG/4ML 8 MG in DEXTROSE 5% 250ML 250 ML IV SCH (20:15)
[2020-01-29] MEDS ORDERED: ALBUMIN 25% 25GM 100ML 0.25 GM/ML BTL IV ONE (20:30)
[2020-01-29] MEDS ORDERED: FUROSEMIDE INJ 10 MG/ML 2 ML VIAL IV ONE (20:30)
[2020-01-29] MEDS ORDERED: ALBUMIN 25% 12.5GM 50ML 200 ML IV ONE (20:46)
[2020-01-29 20:53] LABS: ABG HCO3 28 mmol/L (22-26); ABG PCO2 38 mmHg (35-45); ABG PH 7.47 (7.35-7.45); ABG PO2 70 mmHg (80-105)
[2020-01-29] MEDS: ACETAMINOPHEN 325 MG TAB PO PRN (21:00)
[2020-01-29] MEDS: AMITRIPTYLINE HCL 10 MG TAB PO SCH (21:49)
[2020-01-30] VITALS (25 sets, daily range): BP systolic 109–146; BP diastolic 49–66
[2020-01-30] MEDS: MIDAZOLAM HCL 5MG/ML 10ML VIAL 100 ML IV PRN ×3 (05:00→22:50)
[2020-01-30 05:30] LABS: ALANINE AMINOTRANSFERASE 15 IU/L (0-55); ALBUMIN 2.8 g/dL (3.5-5.0); ALBUMIN/GLOBULIN RATIO 0.9 (0.8-2.0); ALKALINE PHOSPHATASE 66 IU/L (40-150); ANION GAP 11.3 mmol/L (8-16); BLOOD UREA NITROGEN 38 mg/dL (7-26); BUN/CREATININE RATIO 51 (6-25); CARBON DIOXIDE 29 mmol/L (22-29); CHLORIDE 110 mmol/L (98-107); CREATININE, SERUM 0.74 mg/dL (0.57-1.11); EST GLOMERULAR FILTRATION RATE > 60 ML/MIN (60-); GLUCOSE 171 mg/dL (74-118); POTASSIUM 4.3 mmol/L (3.5-5.1); SODIUM 146 mmol/L (136-145)
[2020-01-30] MEDS: FENTANYL 2000MCG/NS 250 250 ML IV PRN ×3 (05:30→23:38)
[2020-01-30] MEDS: MEROPENEM 1GM 100 ML IV SCH ×3 (05:37→21:02)
[2020-01-30 07:21] LABS: BASOPHILS % 0.2 % (0.0-1.0); HEMOGLOBIN 8.8 g/dL (12.0-16.0); LYMPHOCYTES % 9.5 % (18.0-39.1); MEAN CORPUSCULAR HEMOGLOBIN 28.2 pg (28-32); MEAN CORPUSCULAR HGB CONC 31.4 g/dL (31-35); MEAN CORPUSCULAR VOLUME 89.7 fL (81-99); MONOCYTES # (AUTO) 0.4 (0.2-0.8); MONOCYTES % 3.9 % (4.4-11.3); NEUTROPHILS # (AUTO) 8.6 (2.1-6.9); NEUTROPHILS % 81.2 % (38.7-80.0); RED BLOOD COUNT 3.12 x10e6/uL (3.6-5.1); RED CELL DISTRIBUTION WIDTH 15.2 % (11.7-14.4)
[2020-01-30] MEDS: ASCORBIC ACID 500 MG TAB PO SCH ×2 (08:02→16:30)
[2020-01-30] MEDS: EYE LUBRICANT OPTH OINT 3.5GM TUBE OP SCH (08:02)
[2020-01-30] MEDS: FUROSEMIDE INJ 10 MG/ML 2 ML VIAL IV SCH (08:02)
[2020-01-30] MEDS: ZINC SULFATE 220 MG CAP PO SCH (08:02)
[2020-01-30] MEDS: FAMOTIDINE 20 MG/2 ML VIAL IV SCH ×2 (08:02→16:30)
[2020-01-30] MEDS: DEXAMETHASONE SOD PHOS 10 MG/1 ML VIAL IV SCH (08:02)
[2020-01-30] MEDS: POTASSIUM CHLORIDE 20MEQ/15ML UDC NG SCH (08:03)
--- NOTE | 2020-01-30 08:59 | Diagnostic Imaging Report ---
X-ray chest AP portable Comparison: 01/29/2020 at 558 History: Respiratory failure. ICU. Covid 19 Findings: Endotracheal tube and nasogastric tube are unchanged. A right arm PICC line is unchanged. There is no pleural effusion or pneumothorax. Diffuse lung markings suggestive of patchy airspace and interstitial opacities shows possible slight worsening in the right upper lung zone and the left midlung zone. No acute changes and other findings. Impression: Slight worsening of bilateral lung infiltrates. Signed by: Chas Velásquez MD on 01/30/2020 8:55 AM
[2020-01-30 09:04] LABS: ABG HCO3 27 mmol/L (22-26); ABG PCO2 40 mmHg (35-45); ABG PH 7.43 (7.35-7.45); ABG PO2 61 mmHg (80-105)
[2020-01-30 09:50] LABS: LYMPHOCYTES % (MANUAL) 5 % (19-48); MONOCYTES % (MANUAL) 1 % (3.4-9.0); MYELOCYTES % (MANUAL) 3 % (0-0); NEUTROPHILS % (MANUAL) 91 % (40-74)
[2020-01-30 09:52] LABS: ANISOCYTOSIS SLIGHT; OVALOCYTES FEW; PLATELET COUNT 177 x10e3/uL (140-360); PLATELET ESTIMATE ADEQUATE; PLATELET MORPHOLOGY COMMENT NORMAL; POIKILOCYTOSIS SLIGHT; POLYCHROMASIA FEW; RBC MORPHOLOGY COMMENT ABNORMAL
[2020-01-30 09:53] LABS: PLATELET CLUMPS RARE
[2020-01-30] MEDS: INSULIN REGULAR, HUMAN 3ML VL 100 UNIT in SODIUM CHLORIDE 0.9% 100 ML IV SCH ×2 (10:00)
[2020-01-30] MEDS ORDERED: ENOXAPARIN SOD INJ 40 MG/0.4 ML SYR SC SCH ×2 (12:30→17:00)
--- NOTE | 2020-01-30 12:37 | Progress Note ---
DATE: SUBJECTIVE: The patient remains on a PRVC mode of ventilation at a rate of 24. Her tidal volume is set at 400 and FiO2 is set at 65%. Her PEEP is set at 14. She is off Levophed. She is on Versed at 8 and fentanyl at 215. PHYSICAL EXAMINATION: VITAL SIGNS: The blood pressure is 138/61, saturation is 92%, and the pulse is 64. HEENT: Shows no facial swelling or erythema. CARDIAC: Reveals a regular rate and rhythm with normal S1 and S2. LUNGS: Auscultation of lungs reveals crackles at the bases. There is no wheezing. ABDOMEN: Soft and nontender. There is no rebound or guarding. EXTREMITIES: Shows no leg edema or calf tenderness. There is some upper extremity edema bilaterally, right more than left. LABORATORY DATA: Blood gas is 7.43, 40, 61, and 27. The BUN to creatinine ratio is 39 to 0.74 and sodium is 146. The chloride is 110 and the albumin is 2.8. The white blood cell count is 10.6 and hemoglobin is 8.8. The platelet count is 177. RADIOGRAPHIC DATA: Chest x-ray shows bilateral infiltrates. IMPRESSION: 1. Acute respiratory failure. 2. Viral pneumonia and COVID-19 infection. 3. Diabetes. 4. Acute kidney injury. PLAN: 1. Continue current ventilator settings with lung protective strategy. 2. Repeat ABG this evening. 3. Continue enteral feedings. 4. Continue insulin drip. 5. Continue dexamethasone. 6. Complete antibiotics. 7. Specialty bed to prevent decubitus ulcers. 8. Venous duplex of the upper extremities to rule out DVT. 9. Lovenox for DVT prophylaxis. 10. Case discussed with night worker nursing, day shift nursing, Respiratory, family, Internal Medicine, Infectious Disease, and administration. Greater than 35 minutes in direct critical care time. Richard Thompson MD [facility]/MODL /[id number]
--- NOTE | 2020-01-30 15:47 | Diagnostic Imaging Report ---
X-ray chest AP portable History: Line placement Comparison: 01/30/2020 at 5:46 AM Findings: The image was taken with the patient significantly tilted and the upper chest excluded from the image. A tubular structure suggestive of the end of a central line is seen overlying the right innominate vein with the tip ending above the right tracheobronchial angle. The more cranial part and the hub are not seen. I cannot be certain that this is a Central line. The right arm route PICC line is seen up to axilla. The more distal part of the line is not visualized. A nasogastric tube is seen coursing down the expected path. The endotracheal tube is not seen. Multiple ECG electrodes overlying the right chest confounder picture. Other findings to the extent seen show a redistribution of the pulmonary infiltrates with increased opacity of the right mid and lower lung zones and the entire visualized left lung. Impression: In order to assess the central line placement, the study should be repeated to include the lower neck. Signed by: Chas Velásquez MD on 01/30/2020 3:44 PM
--- NOTE | 2020-01-30 16:22 | Diagnostic Imaging Report ---
X-ray chest AP portable Comparison: 01/30/2020 at 1525 History: Right CV line placement Findings: Right IJ route central venous catheter is seen with the tip overlying the right innominate vein/SVC. This is an acceptable position. Compared with the previous exam, there is no other significant change. Impression: Right IJ route central venous catheter as described above, in an acceptable position. Signed by: Chas Velásquez MD on 01/30/2020 4:18 PM
--- NOTE | 2020-01-30 16:23 | Operative Report ---
DATE OF PROCEDURE: SURGEON: Richard Thompson MD PREOPERATIVE DIAGNOSES: 1. Acute kidney injury. 2. COVID-19 infection. 3. Deep vein thrombosis. POSTOPERATIVE DIAGNOSES: 1. Acute kidney injury. 2. COVID-19 infection. 3. Deep vein thrombosis. CONSENT: Consent was obtained from the brother. ANESTHESIA: 1% lidocaine for local anesthesia DESCRIPTION OF PROCEDURE: The patient was placed in a supine position. The right neck was prepped sterilely with chlorhexidine. Ultrasound machine was used to locate the right internal jugular vein. A full length sterile drape, sterile gown, sterile gloves, and mask were used. A 1% lidocaine was used to anesthetize the skin. The right internal jugular vein was then cannulated under direct visualization with a 16-gauge needle. A wire was passed through the needle. The skin was dilated and a triple-lumen catheter was placed over the wire by the Seldinger technique. All the ports flushed. COMPLICATIONS: None. ESTIMATED BLOOD LOSS: None. Richard Thompson MD [facility]/MODL /[id number]
--- NOTE | 2020-01-30 17:43 | NUR ---
MPRESSION: 1. Acute respiratory failure. 2. Viral pneumonia and COVID-19 infection. 3. Diabetes. 4. Acute kidney injury. PLAN: 1. Continue current ventilator settings with lung protective strategy. 2. Repeat ABG this evening. 3. Continue enteral feedings. 4. Continue insulin drip. 5. Continue dexamethasone. 6. Complete antibiotics. 7. Specialty bed to prevent decubitus ulcers. 8. Venous duplex of the upper extremities to rule out DVT. 9. Lovenox for DVT [id number]
[2020-01-30] MEDS: ENOXAPARIN INJ 80 MG/0.8 ML SYR SC SCH (18:16)
--- NOTE | 2020-01-30 19:10 | NUR ---
Mariela NIGHT MANAGER aware of bilateral arm swelling, venous doppler ordered. Venous Doppler positive for DVT, Dr. Michelle Thompson aware and gave orders to insert central line and d/c picc line. Telephone consent obtained from daughter by primary RN and discharge coordinator for inserting central line. Chest x ray ordered x2. Line ok to use per dr. Thompson after second x ray. PICC line removed. Wound care consult ordered for sacral wound. Per Dr. Michelle Thompson ok to give Lovenox at 1800 even though Lovenox previously given this afternoon. Report given to Ward FRASER.
--- NOTE | 2020-01-30 19:48 | Progress Note ---
DATE: SUBJECTIVE: Ms. Lopez remains in intensive care unit, intubated, FiO2 of 65%, off Levophed. PHYSICAL EXAMINATION: GENERAL: She is currently intubated. VITAL SIGNS: Stable, afebrile. NECK: Supple. CHEST: Crackles. COR: S1 and S2. No S3, S4, or murmur. ABDOMEN: Soft. Bowel sounds present. No tenderness. EXTREMITIES: No edema. IMPRESSION: 1. Sepsis. 2. COVID-19. 3. Diabetes mellitus. 4. DVT. PLAN: Plan is to continue with current choice of antibiotic. We will increase her Lovenox to 1 mg/kg q.12 hours as ordered. Discussed with the medical team. We will follow. MD ARLYN Lea/MODL /[id number]
[2020-01-30] MEDS: AMITRIPTYLINE HCL 10 MG TAB PO SCH (21:02)
--- NOTE | 2020-01-30 21:09 | Progress Note ---
DATE: 01/30/2020 Renal Progress Note SUBJECTIVE: The patient is still intubated. No overnight events. PHYSICAL EXAMINATION: VITAL SIGNS: Temperature is 98.4, pulse is 62, respiratory rate is 24, blood pressure is 120/54, and pulse ox 98% on mechanical ventilator. GENERAL: Intubated and sedated. CARDIOVASCULAR: Positive S1 and S2. No murmurs, rubs, or gallops appreciated. PULMONARY: Intubated and sedated. ABDOMEN: Soft, nondistended, and nontender to palpation. Bowel sounds present. MUSCULOSKELETAL: Intubated and sedated. NEUROLOGIC: Intubated and sedated. SKIN: Intact. Warm to touch. Good cap refill. PSYCHIATRIC: Intubated and sedated. EXTREMITIES: No edema. Good range of motion throughout. LABORATORY DATA: Show white count 10.5, hemoglobin 8.8, hematocrit is 28, and platelets of 177. Chemistry; sodium 146, potassium 4.3, chloride 110, bicarb 29, anion gap of 11, BUN is 38, and creatinine is 0.74. Urine output reported 1.6 L. IMPRESSION: 1. Nonoliguric secondary to blood pressure fluctuations, now hypotensive, improving. 2. Electrolyte abnormalities. Replace. 3. Respiratory failure secondary to coronavirus pneumonia. PLAN: At this time from a renal standpoint, electrolytes are stable. Replace electrolytes accordingly. Get a.m. labs. Monitor very closely. Follow with the consultants. MD MUSA Sainz/ELVA /[id number]
[2020-01-30 21:31] LABS: ABG HCO3 29 mmol/L (22-26); ABG PCO2 46 mmHg (35-45); ABG PH 7.41 (7.35-7.45); ABG PO2 78 mmHg (80-105)
[2020-01-31] VITALS (27 sets, daily range): BP systolic 97–173; BP diastolic 43–79
[2020-01-31 05:47] LABS: BASOPHILS % 0.2 % (0.0-1.0); EOSINOPHILS % 0.2 % (0.0-6.0); HEMATOCRIT 28.9 % (34.2-44.1); LYMPHOCYTES # (AUTO) 1.3 (1.0-3.2); LYMPHOCYTES % 14.8 % (18.0-39.1); MEAN CORPUSCULAR HEMOGLOBIN 29.6 pg (28-32); MEAN CORPUSCULAR HGB CONC 31.1 g/dL (31-35); MEAN CORPUSCULAR VOLUME 95.1 fL (81-99); MONOCYTES # (AUTO) 0.2 (0.2-0.8); MONOCYTES % 2.7 % (4.4-11.3); NEUTROPHILS # (AUTO) 6.5 (2.1-6.9); NEUTROPHILS % 74.6 % (38.7-80.0); PLATELET COUNT 200 x10e3/uL (140-360); RED BLOOD COUNT 3.04 x10e6/uL (3.6-5.1); RED CELL DISTRIBUTION WIDTH 15.1 % (11.7-14.4)
[2020-01-31] MEDS: MEROPENEM 1GM 100 ML IV SCH ×2 (05:50→13:15)
[2020-01-31] MEDS: ENOXAPARIN INJ 80 MG/0.8 ML SYR SC SCH ×2 (05:50→17:03)
[2020-01-31 06:14] LABS: ALANINE AMINOTRANSFERASE 19 IU/L (0-55); ALBUMIN 2.5 g/dL (3.5-5.0); ALBUMIN/GLOBULIN RATIO 0.8 (0.8-2.0); ALKALINE PHOSPHATASE 67 IU/L (40-150); ANION GAP 11.6 mmol/L (8-16); BLOOD UREA NITROGEN 38 mg/dL (7-26); BUN/CREATININE RATIO 58 (6-25); CALCIUM 7.9 mg/dL (8.4-10.2); CARBON DIOXIDE 30 mmol/L (22-29); CHLORIDE 108 mmol/L (98-107); CREATININE, SERUM 0.65 mg/dL (0.57-1.11); EST GLOMERULAR FILTRATION RATE > 60 ML/MIN (60-); GLUCOSE 161 mg/dL (74-118); POTASSIUM 4.6 mmol/L (3.5-5.1); SODIUM 145 mmol/L (136-145)
--- NOTE | 2020-01-31 06:39 | Diagnostic Imaging Report ---
Examination: Single AP view of the chest. COMPARISON: AP chest 01/30/2020 INDICATION: Intubated, COVID IMPRESSION: 1. Lines and Tubes: Endotracheal tube has distal tip projecting approximately 7.2 cm above the adriana, above the thoracic inlet other supporting lines and tubes are unchanged. 2. No significant interval change in bilateral interstitial and alveolar opacities consistent with pneumonia. Signed by: Dr. Issa Schmid M.D. on 01/31/2020 6:35 AM
[2020-01-31] MEDS: DEXAMETHASONE SOD PHOS 10 MG/1 ML VIAL IV SCH (07:21)
[2020-01-31] MEDS: ZINC SULFATE 220 MG CAP PO SCH (08:00)
[2020-01-31] MEDS: ASCORBIC ACID 500 MG TAB PO SCH ×2 (08:00→17:03)
[2020-01-31] MEDS: FAMOTIDINE 20 MG/2 ML VIAL IV SCH ×2 (08:00→17:03)
[2020-01-31] MEDS ORDERED: PROPOFOL IV EMULSION 50 ML IV ONE ×2 (08:52→09:03)
[2020-01-31] MEDS ORDERED: NOREPINEPHRINE 8 MG/D5W 250 ML 250 ML ONE (08:53)
[2020-01-31] MEDS: POTASSIUM CHLORIDE 20MEQ/15ML UDC NG SCH (09:00)
[2020-01-31] MEDS: EYE LUBRICANT OPTH OINT 3.5GM TUBE OP SCH (09:05)
--- NOTE | 2020-01-31 09:54 | Diagnostic Imaging Report ---
EXAMINATION: CHEST SINGLE (PORTABLE) INDICATION: Pneumothorax COMPARISON: Chest radiograph 01/31/2020 FINDINGS: LINES/TUBES:Support lines and tubes unchanged. LUNGS:Lung volumes are unchanged. Persistent bilateral interstitial and hazy airspace opacities. PLEURA:No pleural effusion or pneumothorax. MEDIASTINUM:The cardiomediastinal silhouette appears unchanged in size and shape. BONES/SOFT TISSUES:No acute osseous injury. ABDOMEN:No free air under the diaphragm. IMPRESSION: No significant interval change. No pneumothorax. Signed by: Obi Manley MD on 01/31/2020 9:51 AM
[2020-01-31] MEDS ORDERED: NOREPINEPHRINE 8 MG/D5W 250 ML 250 ML IV PRN (10:00)
[2020-01-31] MEDS ORDERED: PROPOFOL IV EMULSION 10MG/ML 50 ML IV PRN (10:00)
[2020-01-31] MEDS: FENTANYL 2000MCG/NS 250 250 ML IV PRN ×2 (10:57→17:04)
[2020-01-31] MEDS ORDERED: PROPOFOL IV EMULSION 100 ML IV ONE (11:46)
[2020-01-31 12:20] LABS: ABG HCO3 32 mmol/L (22-26); ABG PCO2 42 mmHg (35-45); ABG PO2 78 mmHg (80-105)
--- NOTE | 2020-01-31 13:17 | NUR ---
WOUND CARE CONSULT FOR 69 YO FEMALE HX OF HYPOX ,ABD PAIN,PUI MARINO 10 ON STRICT PUP STATUS AND INTERVENTIONS AND ALTERNATING PRESSURE MATTRESS LABS: WBC-8.67 HGB_9 GLUCOSE-161 [id number] SKIN ASSESSMENT COMPLETE PATIENT PRESENTS WITH SACRAL STAGE 2 DARK BLISTER MEASURES 3CM X4CM RECOMMENDATIONS: NURSING TO CONTINUE TO MAINTAIN STRICT PUP STATUS AND INTERVENTIONS AND ALTERNATING PRESSURE MATTRESS NURSING TO CONTINUE TO ASSIST PATIENT OUT OF BED FOR MEALS AND MUCH TOLERATED NURSING TO CONTINUE TO ASSIST PATIENT NEEDED WITH MEALS AND NUTRITIONAL SUPPLEMENTS TO ENSURE PROPER REQUIREMENTS FOR HEALING NURSING TO CONTINUE TO OFFLOAD FEET AND HEELS NEEDED WITH PILLOW SUSPENSION WHEN IN BED NURSING TO CLEAN SACRAL STAGE 2 ULCER WITH NORMAL SALINE DAILY AND APPLY VENELEX OINTMENT AND ALLEVYN FOAM DRESSING Addendum: 01/31/20 at 1321 by Jefferson Price RN Amended: Links added.
--- NOTE | 2020-01-31 14:17 | Progress Note ---
DATE: Pulmonary Critical Care Progress Note SUBJECTIVE: The patient had some agitation this morning. She required a small bolus of propofol. She was switched from Versed to propofol. She also remains on fentanyl. Her FiO2 is decreased to 55% and PEEP is decreased to 12. She remains on a PRVC at a rate of 24 with a tidal volume of 400 mL. She is breathing about 27 times a minute. PHYSICAL EXAMINATION: VITAL SIGNS: Her saturation is 95%. Her blood pressure is 148/60 and heart rate is 60 to 70. HEENT: Shows no facial swelling or erythema. CARDIAC: Reveals regular rate and rhythm with normal S1 and S2. LUNGS: Auscultation of lungs reveals rhonchorous breath sounds bilaterally. There is no wheezing. ABDOMEN: Soft and nontender. There is no rebound or guarding. EXTREMITIES: Shows no leg edema or calf tenderness. There is no cyanosis or clubbing. SKIN: Shows no rashes. NEUROLOGICAL: Shows the patient to be sedated, but she does wake up when the sedation is held. LABORATORY DATA: The BUN to creatinine ratio is 38 to 0.65 and the blood sugars are 140 to 200. The white blood cell count is 8.6 and the hemoglobin is 9. The platelet count is 200. RADIOGRAPHIC DATA: Chest x-ray shows continued bilateral infiltrates. IMPRESSION: 1. Acute respiratory failure. 2. Viral pneumonia and COVID-19 infection. 3. Diabetes. 4. Acute kidney injury. PLAN: 1. Continue PRVC mode of ventilation with lung protective strategy. 2. Repeat ABG this evening. 3. Continue enteral feedings. 4. Insulin drip. 5. Dexamethasone. 6. Full dose Lovenox for right and left upper extremity deep vein thrombosis. 7. Case discussed with nursing staff, Respiratory, family, Internal Medicine, and administration. Greater than 35 minutes in direct critical care time. Richard Thompson MD [facility]/MODL /[id number]
[2020-01-31] MEDS: BALSAM PERU/CASTOR OIL 60 GM OINT...G. TP SCH (14:56)
--- NOTE | 2020-01-31 15:00 | NUR ---
Dr. Michelle rodriguez notified of ABG results. Pt became very agitated this afternoon despite being on versed and fentanyl drip at max rate. Pt moving head side to side and pulling at restraints, pt desaturating to low 80's%. Dr. Michelle rodriguez notified orders given to stop versed and start precedex drip. Orders given for Levophed if needed to support blood pressure. Pt appears more calm once propofol drip started. tile layer drainage came to assess skin. Will continue to monitor the patient.
[2020-01-31] MEDS: PROPOFOL IV EMULSION 50 ML IV PRN (15:45)
[2020-01-31 20:09] LABS: ABG PCO2 37 mmHg (35-45); ABG PH 7.49 (7.35-7.45); ABG PO2 65 mmHg (80-105)
[2020-01-31 20:10] LABS: ABG HCO3 29 mmol/L (22-26)
--- NOTE | 2020-01-31 20:58 | Progress Note ---
DATE: SUBJECTIVE: Ms. Durham remains in intensive care unit and intubated. Still confused. Bolus propofol, Versed. Her FiO2 is up to 55, PEEP of 12. PHYSICAL EXAMINATION: GENERAL: She is intubated. VITAL SIGNS: Stable. Afebrile. HEENT: She is not icteric. NECK: Supple. CHEST: Clear. HEART: S1 and S2. No S3, S4, or murmur. IMPRESSION: She is on meropenem, this is day #4. She is also on Elavil. I am going to stop the meropenem and her amitriptyline. We are going to finish 10-day course of dexamethasone and this is day 10 of hospitalization. She will be assessed in the morning. MD ARLYN Lea/ELVA /[id number]
--- NOTE | 2020-01-31 21:44 | NUR ---
Dr. Thompson notified of ABG results. Vent settings changed per MD.
--- NOTE | 2020-01-31 23:59 | Progress Note ---
DATE: 01/31/2020 Nephrology Progress Note SUBJECTIVE: The patient was seen early this afternoon. She was extubated. She was doing well on nasal cannula. PHYSICAL EXAMINATION: VITAL SIGNS: Temperature was 99.8, pulse 69, respiratory rate was 22, blood pressure was 100/44. She was extubated during my evaluation. GENERAL: She is alert, awake. She was extubated when I evaluated. CARDIOVASCULAR: Positive S1 and S2. No murmurs, rubs, or gallops appreciated. ABDOMEN: Soft, nondistended, nontender to palpation. Bowel sounds present. MUSCULOSKELETAL: Strength is 5/5 throughout. No evidence of muscle deficits on examination. No weakness appreciated. EXTREMITIES: No edema. Good range of motion throughout. LABORATORY DATA: White count 8.6, hemoglobin is 9, hematocrit is 28.9, and platelets of 200. Chemistry; sodium 145, potassium 4.6, chloride 108, bicarb 30, anion gap of 11, BUN is 38, creatinine is 0.65, calcium is 7.9. IMAGING STUDIES: Chest x-ray shows no change in opacities of the pneumonia. IMPRESSION: 1. Nonoliguric secondary to blood pressure fluctuations, now much improved. 2. Electrolyte abnormalities. 3. Respiratory failure secondary to Coronavirus pneumonia. 4. Bilateral upper extremity deep venous thrombosis. PLAN: At this time, she is on full-dose Lovenox. Electrolytes are stable. Labs reviewed and stable as well. Get a.m. labs with magnesium level. Follow with the primary team. MD MUSA Sainz/MODL /[id number]
[2020-02-01] VITALS (22 sets, daily range): BP systolic 90–158; BP diastolic 42–72
[2020-02-01] MEDS: PROPOFOL IV EMULSION 50 ML IV PRN ×7 (01:10→21:55)
[2020-02-01 05:06] LABS: BASOPHILS % 0.2 % (0.0-1.0); EOSINOPHILS # (AUTO) 0.1 (0.0-0.4); EOSINOPHILS % 0.7 % (0.0-6.0); HEMATOCRIT 28.3 % (34.2-44.1); HEMOGLOBIN 8.7 g/dL (12.0-16.0); LYMPHOCYTES % 15.6 % (18.0-39.1); MEAN CORPUSCULAR HEMOGLOBIN 28.5 pg (28-32); MEAN CORPUSCULAR HGB CONC 30.7 g/dL (31-35); MEAN CORPUSCULAR VOLUME 92.8 fL (81-99); MONOCYTES # (AUTO) 0.4 (0.2-0.8); MONOCYTES % 2.8 % (4.4-11.3); NEUTROPHILS # (AUTO) 9.5 (2.1-6.9); NEUTROPHILS % 74.8 % (38.7-80.0); PLATELET COUNT 269 x10e3/uL (140-360); RED BLOOD COUNT 3.05 x10e6/uL (3.6-5.1); RED CELL DISTRIBUTION WIDTH 14.9 % (11.7-14.4)
[2020-02-01] MEDS: ENOXAPARIN INJ 80 MG/0.8 ML SYR SC SCH ×2 (05:20→18:42)
[2020-02-01] MEDS: FENTANYL 2000MCG/NS 250 250 ML IV PRN ×3 (05:22→21:57)
[2020-02-01 05:30] LABS: ALANINE AMINOTRANSFERASE 23 IU/L (0-55); ALBUMIN 2.2 g/dL (3.5-5.0); ALBUMIN/GLOBULIN RATIO 0.7 (0.8-2.0); ALKALINE PHOSPHATASE 69 IU/L (40-150); ANION GAP 11.1 mmol/L (8-16); BLOOD UREA NITROGEN 30 mg/dL (7-26); BUN/CREATININE RATIO 48 (6-25); CALCIUM 7.8 mg/dL (8.4-10.2); CARBON DIOXIDE 29 mmol/L (22-29); CHLORIDE 106 mmol/L (98-107); CREATININE, SERUM 0.62 mg/dL (0.57-1.11); EST GLOMERULAR FILTRATION RATE > 60 ML/MIN (60-); GLUCOSE 136 mg/dL (74-118); POTASSIUM 4.1 mmol/L (3.5-5.1); SODIUM 142 mmol/L (136-145)
--- NOTE | 2020-02-01 07:42 | Diagnostic Imaging Report ---
Examination: Single AP view of the chest. COMPARISON: Portable chest 01/31/2020 INDICATION: Intubated, COVID IMPRESSION: 1. Lines and Tubes: Supporting lines and tubes are unchanged. 2. No significant interval change in bilateral interstitial and airspace opacities, consistent with pneumonia. 3. Cardiomediastinal silhouette is normal. Pulmonary vasculature is obscured. 4. No acute bony abnormalities. Signed by: Dr. Issa Schmid M.D. on 02/01/2020 7:39 AM
[2020-02-01 07:56] LABS: ABG PCO2 42 mmHg (35-45); ABG PH 7.46 (7.35-7.45); ABG PO2 70 mmHg (80-105)
[2020-02-01 07:57] LABS: ABG HCO3 30 mmol/L (22-26)
[2020-02-01] MEDS: ASCORBIC ACID 500 MG TAB PO SCH ×2 (11:31→17:00)
[2020-02-01] MEDS: DEXAMETHASONE SOD PHOS 10 MG/1 ML VIAL IV SCH (11:31)
[2020-02-01] MEDS: FAMOTIDINE 20 MG/2 ML VIAL IV SCH ×2 (11:31→17:00)
[2020-02-01] MEDS: BALSAM PERU/CASTOR OIL 60 GM OINT...G. TP SCH (11:32)
[2020-02-01] MEDS: ZINC SULFATE 220 MG CAP PO SCH (11:32)
[2020-02-01] MEDS: EYE LUBRICANT OPTH OINT 3.5GM TUBE OP SCH (11:33)
[2020-02-01] MEDS: POTASSIUM CHLORIDE 20MEQ/15ML UDC NG SCH (11:34)
--- NOTE | 2020-02-01 12:46 | Progress Note ---
DATE: Pulmonary Critical Care Progress Note SUBJECTIVE: The patient remains on a ventilator. She is on a PRVC mode of ventilation at rate of 24 with a tidal volume of 400. Her FiO2 is set at 50% and her PEEP is set at 10. She is saturating 96% and is synchronized with the ventilator. The patient is off Levophed. PHYSICAL EXAMINATION: VITAL SIGNS: The blood pressure is 116/57 and the saturation is 96%. HEENT: Shows no facial swelling or erythema. There is a right IJ line in good position. There is an oral endotracheal tube. The patient has an A-line in place. CARDIAC: Reveals regular rate and rhythm with normal S1 and S2. LUNGS: Auscultation of lungs reveals rhonchorous breath sounds bilaterally. There is no wheezing. ABDOMEN: Soft and nontender. There is no rebound or guarding. EXTREMITIES: Shows no leg edema or calf tenderness. There is no cyanosis or clubbing. SKIN: Shows no rashes. NEUROLOGICAL: Shows the patient to be sedated. LABORATORY DATA: White blood cell count is 12.7 and the hemoglobin is 8.7. The platelet count is 269. The BUN to creatinine ratio is 30 to 0.62 and other electrolytes are within normal limits. The albumin is 2.2. RADIOGRAPHIC DATA: Chest x-ray shows continued bilateral interstitial opacities. IMPRESSION: 1. Acute respiratory failure. 2. Viral pneumonia and COVID-19 infection. 3. Diabetes. 4. Acute kidney injury. PLAN: 1. Continue to wean ventilator as tolerated. Repeat ABG this evening. 2. Continue enteral feedings. 3. Continue dexamethasone. 4. Continue insulin drip. 5. Continue full dose Lovenox for deep vein thrombosis in the arm. 6. Case discussed with deputy clerk of superior court nursing, day shift nursing, Respiratory, family, Internal Medicine, and administration. Greater than 35 minutes in direct critical care time. Richard Thompson MD [facility]/MODL /[id number]
--- NOTE | 2020-02-01 14:53 | NUR ---
Nutrition Intervention Note RD Recommendation(s) for Physician: -Recommend modifying tube feed formula to Vital High Protein @ goal rate of 60 mL/hr to better meet estimated nutritional needs (provides 1440 kcal, 126 g protein, and 1204 mL water) -Fluid management per MD -Propofol providing 317 lipid kcal/day Plan of Care: RD following, monitoring for tolerance and adequacy, tube feed recommendation Nutrition reason for involvement: follow up RD Assessment 01/31: Follow up. Pt remains intubated and sedated on Propofol. No pressors currently. Pt continues on low rate TF of Glucerna 1.2, not meeting needs. Current TF rec's remain appropriate, rec's placed in chart for MD. Chart reviewed. Will continue to monitor. 01/26: Follow up. Pt remains intubated and sedated. Pt is tolerating tube feedings. Current RD recommendations remain appropriate. Informed RN of recommendation. Will continue to monitor. (01/25/20) Pt is a 69 year old female admitted with abdominal pain and hypoxia. Pt is COVID-19+ and is currently intubated. Tube feedings were started. There are no previous weights in chart. Nutrition history is limited at this time. Recommendations provided and will continue to monitor. Principal Problems/Diagnoses: abdominal pain and hypoxia PMH: HTN, diabetes I/O: 1685/3025 GI: soft, non-tender abdomen, last recorded BM 01/23- no BM documented x 1 week Skin: sacrum stage II PU Labs: 01/31: Na 142, K 4.1, BUN 30, Cr 0.62, Gluc 136, POC Gluc 133-235 01/26: Na 140, K 3.7, BUN 19, Cr 0.69, Glu 93, Ca 7.9, AST 44 (01/24) Na 139, K 2.8, BUN 15, Glu 193, Ca 7.8, AST 38, HgbA1c 8.9% (01/22) Meds: vitamin C, zinc sulfate, pepcid, decadron, KCl IVPB, zofran IVF/Drips: Propofol at 12 ml/hr (317 lipid kcal/day), fentanyl drip, insulin drip at 1 unit/hr Ht: 64 inches Wt: 165 lbs BMI: 28.3 kg/m2 IBW: 120 lbs Malnutrition Evaluation (01/25/20) Unable to assess. Will re-evaluate at follow-up as appropriate. Nutrition Prescription (Diet Order): Glucerna 1.2 @ 30 mL/hr (provides 864 kcal and 43 g protein) Estimated Nutritional Needs: 6771-9373 calories/day (18-20 kcal/kg CBW) 90-150 g protein/day (1.2-2 g pro/kg CBW) Diet Adequacy: Not meeting calorie needs, Not meeting protein needs Tolerance: Tolerating TF Diet Education Needs Assessment: Diet education not indicated, patient on temporary/transition diet. Nutrition Care Level: moderate Nutrition Diagnosis: Inadequate oral intake related to acute respiratory failure/mechanical ventilation as evidenced by need for enteral nutrition. Goal: Patient will meet 75-100% of estimated needs by follow up Progress: not progressing with current tube feed order Interventions: -Composition, Rate, Route, Recommended Modifications, Collaboration with other providers Monitoring/Evaluation: -Total energy intake, Total protein intake, Formula/Solution, Weight change Signed: Anita Romero RD, LD, [facility]
--- NOTE | 2020-02-01 21:13 | Progress Note ---
DATE: SUBJECTIVE: Ms. Lopez was currently lying in bed in ICU. She remains on the ventilator. Her FiO2 of 50%, PEEP is 10. OBJECTIVE: HEENT: Normocephalic. CHEST: Few crackles. COR: S1, S2. ABDOMEN: Soft. IMPRESSION: 1. Respiratory failure. 2. Pneumonia. 3. Diabetes mellitus. 4. Acute kidney injury. PLAN: Continue with dexamethasone. Continue with vitamin C and supplement. Continue with Lovenox. She had bilateral upper extremity venous thrombosis, so we would do a full anticoagulation 1 mg/kg q.12 hours. MD ARLYN Lea/MODL /[id number]
[2020-02-01 22:38] LABS: ABG HCO3 28 mmol/L (22-26); ABG PCO2 39 mmHg (35-45); ABG PH 7.46 (7.35-7.45); ABG PO2 60 mmHg (80-105)
[2020-02-02] VITALS (23 sets, daily range): BP systolic 90–167; BP diastolic 42–89
--- NOTE | 2020-02-02 00:34 | Progress Note ---
DATE: 02/01/2020 Nephrology Progress Note SUBJECTIVE: The patient is intubated. No overnight events. Occasionally she will have some hypotension. PHYSICAL EXAMINATION: VITAL SIGNS: Temperature is 97.6, pulse 60, respiratory rate is 25, blood pressure was 97/44, and pulse ox 96%. She is on a mechanical ventilator. GENERAL: Intubated and sedated. PULMONARY: Intubated and sedated. CARDIOVASCULAR: Positive S1 and S2. No murmurs, rubs, or gallops appreciated. ABDOMEN: Soft, nondistended, and nontender to palpation. Bowel sounds present. MUSCULOSKELETAL: Unable to assess. Intubated and sedated. NEUROLOGIC: Intubated and sedated. SKIN: Intact. Warm to touch. Good cap refill. PSYCHIATRIC: Intubated and sedated. EXTREMITIES: No edema appreciated. LABORATORY DATA: White count 12, hemoglobin 8.7, hematocrit is 28, platelets of 269. Chemistry; sodium 142, potassium 4.1, chloride 106, bicarb 29, anion gap of 11, BUN is 30, creatinine 0.62, glucose is 136. MICROBIOLOGY: None. IMAGING STUDIES: Chest x-ray this morning still shows bilateral interstitial airspace opacity consistent with pneumonia. IMPRESSION: 1. Nonoliguric secondary to blood pressure fluctuation, now improved. 2. Electrolyte abnormalities. 3. Respiratory failure secondary to coronavirus pneumonia, intubated and sedated. 4. Bilateral upper extremity deep vein thrombosis. PLAN: At this time, continue full-dose Lovenox. Replace electrolytes accordingly. Electrolyte protocol. Get a.m. labs. Follow with the primary. MD MUSA Sainz/MODL /[id number]
[2020-02-02] MEDS: PROPOFOL IV EMULSION 50 ML IV PRN ×8 (03:33→22:54)
[2020-02-02] MEDS: ENOXAPARIN INJ 80 MG/0.8 ML SYR SC SCH ×2 (05:30→18:40)
--- NOTE | 2020-02-02 06:16 | Diagnostic Imaging Report ---
Examination: Single AP view of the chest. COMPARISON: Portable chest 02/01/2020 INDICATION: Intubated,COVID IMPRESSION: 1. Lines and Tubes: Supporting lines and tubes are unchanged. 2. No significant interval change in bilateral interstitial and airspace opacities consistent with pneumonia. 3. Cardiomediastinal silhouette is normal. Central pulmonary venous congestion. 4. No acute bony abnormalities. Signed by: Dr. Issa Schmid M.D. on 02/02/2020 6:13 AM
[2020-02-02 07:19] LABS: BASOPHILS % 0.1 % (0.0-1.0); EOSINOPHILS % 0.2 % (0.0-6.0); HEMATOCRIT 27.7 % (34.2-44.1); HEMOGLOBIN 8.6 g/dL (12.0-16.0); LYMPHOCYTES # (AUTO) 1.3 (1.0-3.2); LYMPHOCYTES % 10.5 % (18.0-39.1); MEAN CORPUSCULAR HEMOGLOBIN 28.8 pg (28-32); MEAN CORPUSCULAR VOLUME 92.6 fL (81-99); MONOCYTES # (AUTO) 0.3 (0.2-0.8); MONOCYTES % 2.4 % (4.4-11.3); NEUTROPHILS # (AUTO) 9.9 (2.1-6.9); NEUTROPHILS % 82.3 % (38.7-80.0); PLATELET COUNT 312 x10e3/uL (140-360); RED BLOOD COUNT 2.99 x10e6/uL (3.6-5.1); RED CELL DISTRIBUTION WIDTH 14.7 % (11.7-14.4)
[2020-02-02 07:37] LABS: ALANINE AMINOTRANSFERASE 22 IU/L (0-55); ALBUMIN 1.9 g/dL (3.5-5.0); ALBUMIN/GLOBULIN RATIO 0.6 (0.8-2.0); ALKALINE PHOSPHATASE 76 IU/L (40-150); ANION GAP 8.5 mmol/L (8-16); BLOOD UREA NITROGEN 28 mg/dL (7-26); BUN/CREATININE RATIO 46 (6-25); CALCIUM 7.9 mg/dL (8.4-10.2); CARBON DIOXIDE 30 mmol/L (22-29); CHLORIDE 102 mmol/L (98-107); CREATININE, SERUM 0.61 mg/dL (0.57-1.11); EST GLOMERULAR FILTRATION RATE > 60 ML/MIN (60-); GLUCOSE 225 mg/dL (74-118); POTASSIUM 4.5 mmol/L (3.5-5.1); SODIUM 136 mmol/L (136-145)
[2020-02-02 07:55] LABS: ABG HCO3 30 mmol/L (22-26); ABG PCO2 38 mmHg (35-45); ABG PO2 70 mmHg (80-105)
--- NOTE | 2020-02-02 08:10 | Progress Note ---
DATE: Pulmonary Critical Care SUBJECTIVE: The patient has remained on PRVC overnight. She is now on a PRVC at a rate of 20 with a tidal volume of 400 and a PEEP of 10. FiO2 is set at 50%. She is saturating 95%. She remains on insulin at 2 units an hour. She is still on fentanyl at 200 mcg as well as propofol at 20. She is still receiving enteral feedings. OBJECTIVE: VITAL SIGNS: The blood pressure is 105/65, pulse is 60 to 65. The patient is breathing over the vent at 26 times a minute. Her PRVC is set as noted above. HEENT: Shows no facial swelling or erythema. There is a right IJ line. The site looks clean. There is an oral endotracheal tube. She has an A-line in place. CARDIAC: Reveals regular rate and rhythm with normal S1 and S2. LUNGS: Auscultation of lungs reveals rhonchus breath sounds bilaterally. There is no wheezing. ABDOMEN: Soft, nontender. There is no rebound or guarding. EXTREMITIES: Shows no leg edema or calf tenderness. There is no cyanosis or clubbing. SKIN: Shows no rashes. NEUROLOGICAL: Shows the patient to be sedated. But she is arousable when the sedation is stopped. LABORATORY DATA: Blood gas is 7.46, 39, 60, and 28. RADIOGRAPHIC DATA: Chest x-ray shows continued bilateral infiltrates. ASSESSMENT: 1. Acute respiratory failure. 2. Deep vein thrombosis of the upper extremities. 3. Viral pneumonia and coronavirus disease - 19 infection. 4. Diabetes. 5. Acute kidney injury. PLAN: 1. Continue PRVC mode of ventilation with a lung protective strategy. Repeat ABG this evening. 2. Continue insulin drip. 3. Continue full-dose Lovenox. 4. Continue enteral feedings. 5. Continue dexamethasone. 6. Continue to monitor urine output and give Lasix if necessary. 7. Case discussed with nightshift nursing, dayshift nursing, Respiratory, Internal Medicine, Infectious Disease, administration, and family. Greater than 35 minutes in direct critical care time. Richard Thompson MD [facility] /[id number]
[2020-02-02] MEDS: FAMOTIDINE 20 MG/2 ML VIAL IV SCH ×2 (09:28→18:40)
[2020-02-02] MEDS: BALSAM PERU/CASTOR OIL 60 GM OINT...G. TP SCH (09:28)
[2020-02-02] MEDS: DEXAMETHASONE SOD PHOS 10 MG/1 ML VIAL IV SCH (09:28)
[2020-02-02] MEDS: ZINC SULFATE 220 MG CAP PO SCH (09:28)
[2020-02-02] MEDS: POTASSIUM CHLORIDE 20MEQ/15ML UDC NG SCH (09:28)
[2020-02-02] MEDS: EYE LUBRICANT OPTH OINT 3.5GM TUBE OP SCH (09:28)
[2020-02-02] MEDS: ASCORBIC ACID 500 MG TAB PO SCH ×2 (09:28→18:40)
[2020-02-02] MEDS: FENTANYL 2000MCG/NS 250 250 ML IV PRN ×2 (09:30→20:37)
--- NOTE | 2020-02-02 11:41 | NUR ---
The blood pressure is 105/65, pulse is 60 to 65. The patient is breathing over the vent at 26 times a minute. Her PRVC is set as noted above. HEENT: Shows no facial swelling or erythema. There is a right IJ line. The site looks clean. There is an oral endotracheal tube. She has an A-line in place. CARDIAC: Reveals regular rate and rhythm with normal S1 and S2. LUNGS: Auscultation of lungs reveals rhonchus breath sounds bilaterally. There is no wheezing. ABDOMEN: Soft, nontender. There is no rebound or guarding. EXTREMITIES: Shows no leg edema or calf tenderness. There is no cyanosis or clubbing. SKIN: Shows no rashes. NEUROLOGICAL: Shows the patient to be sedated. But she is arousable when the sedation is stopped. [id number]
--- NOTE | 2020-02-02 12:43 | Progress Note ---
DATE: SUBJECTIVE: Ms. Durham remains in intensive care unit and intubated. Ms. Durham is intubated and sedated, PRVC 20, tidal volume 400, PEEP of 10, FiO2 of 50. Ms. Durham remains in intensive care unit. LABORATORY DATA: Reviewed, chart reviewed. IMPRESSION: Respiratory failure, deep venous thrombosis in the upper extremity, viral pneumonia, diabetes mellitus, acute kidney injury. Continue insulin drip, full dose anticoagulation with Lovenox, enteral feeding, dexamethasone. Supportive care as ordered. MD ARLYN Lea/MODL /[id number]
--- NOTE | 2020-02-02 12:52 | Diagnostic Imaging Report ---
EXAMINATION: CHEST SINGLE (PORTABLE) INDICATION: Respiratory distress COMPARISON: Chest radiograph 02/02/2020 FINDINGS: LINES/TUBES:Support lines and tubes unchanged. LUNGS:The lungs are moderately inflated. Increasing bilateral left greater than right focal airspace opacities. PLEURA:No pleural effusion or pneumothorax. MEDIASTINUM:The cardiomediastinal silhouette appears normal in size and shape. BONES/SOFT TISSUES:No acute osseous injury. ABDOMEN:No free air under the diaphragm. IMPRESSION: Worsening bilateral multifocal airspace opacities. Signed by: Obi Manley MD on 02/02/2020 12:49 PM
[2020-02-02] MEDS ORDERED: ALBUMIN 25% 25GM 100ML 0.25 GM/ML BTL IV ONE (18:30)
[2020-02-02] MEDS ORDERED: ALBUMIN 25% 12.5GM 50ML 100 ML IV ONE (18:45)
[2020-02-02] MEDS ORDERED: FUROSEMIDE INJ 10 MG/ML 4 ML VIAL IV ONE (18:45)
[2020-02-02] MEDS ORDERED: ROCURONIUM BROMIDE 250 MG in SODIUM CHLORIDE 0.9% 250ML 225 ML IV SCH ×4 (20:00)
--- NOTE | 2020-02-02 20:00 | NUR ---
Dr. Thompson called me to get an update on status. He was updated on Saturation UOP and vent settings. New orders rec'd to prone patient.
--- NOTE | 2020-02-02 20:49 | NUR ---
I called Dr Thompson and updated on improved saturation with repositioning. We agreed to hold off on proning for now and work on titrating Fi02. RT notified
[2020-02-03] VITALS (26 sets, daily range): BP systolic 87–172; BP diastolic 41–69
--- NOTE | 2020-02-03 00:22 | Progress Note ---
DATE: 02/02/2020 Nephrology Progress Note SUBJECTIVE: The patient is still intubated. No overnight events. PHYSICAL EXAMINATION: VITAL SIGNS: Temperature is 98.4, pulse 62, respiratory rate is 12, blood pressure 98/45, and pulse ox 98% on mechanical ventilator. GENERAL: Intubated and sedated. PULMONARY: Intubated and sedated. CARDIOVASCULAR: Positive S1 and S2. No murmurs, rubs, or gallops appreciated. ABDOMEN: Soft, nondistended, and nontender to palpation. Bowel sounds present. MUSCULOSKELETAL: Unable to assess. NEUROLOGIC: Unable to assess. SKIN: Intact. Warm to touch. Good cap refill. PSYCHIATRIC: Intubated and sedated. EXTREMITIES: No edema. Good range of motion throughout. LABORATORY DATA: CBC reviewed. White count was 12, hemoglobin 8.6, hematocrit is 27, platelets of 312. Chemistry is reviewed and stable. IMPRESSION: 1. Nonoliguric secondary to blood pressure fluctuations, now improved with good urine output. 2. Electrolyte abnormalities, replaced accordingly. 3. Respiratory failure secondary to coronavirus pneumonia, intubated and sedated. 4. Bilateral upper extremity deep vein thrombosis. PLAN: At this time, continue with full-dose Lovenox. Electrolyte replacements accordingly. Get morning labs. Follow with the primary team. MD MUSA Sainz/MODL /[id number]
[2020-02-03] MEDS: PROPOFOL IV EMULSION 50 ML IV PRN ×7 (02:15→22:40)
[2020-02-03 05:09] LABS: BASOPHILS % 0.2 % (0.0-1.0); EOSINOPHILS # (AUTO) 0.1 (0.0-0.4); EOSINOPHILS % 0.6 % (0.0-6.0); HEMATOCRIT 27.4 % (34.2-44.1); HEMOGLOBIN 8.4 g/dL (12.0-16.0); LYMPHOCYTES # (AUTO) 1.1 (1.0-3.2); LYMPHOCYTES % 8.6 % (18.0-39.1); MEAN CORPUSCULAR HEMOGLOBIN 28.5 pg (28-32); MEAN CORPUSCULAR HGB CONC 30.7 g/dL (31-35); MEAN CORPUSCULAR VOLUME 92.9 fL (81-99); MONOCYTES # (AUTO) 0.3 (0.2-0.8); MONOCYTES % 2.6 % (4.4-11.3); NEUTROPHILS # (AUTO) 11.1 (2.1-6.9); NEUTROPHILS % 84.7 % (38.7-80.0); PLATELET COUNT 389 x10e3/uL (140-360); RED BLOOD COUNT 2.95 x10e6/uL (3.6-5.1); RED CELL DISTRIBUTION WIDTH 14.6 % (11.7-14.4)
[2020-02-03] MEDS: ENOXAPARIN INJ 80 MG/0.8 ML SYR SC SCH ×2 (05:23→16:55)
[2020-02-03 05:35] LABS: ALANINE AMINOTRANSFERASE 18 IU/L (0-55); ALBUMIN 1.9 g/dL (3.5-5.0); ALBUMIN/GLOBULIN RATIO 0.6 (0.8-2.0); ALKALINE PHOSPHATASE 71 IU/L (40-150); ANION GAP 10.4 mmol/L (8-16); BLOOD UREA NITROGEN 22 mg/dL (7-26); BUN/CREATININE RATIO 41 (6-25); CARBON DIOXIDE 31 mmol/L (22-29); CHLORIDE 103 mmol/L (98-107); CREATININE, SERUM 0.54 mg/dL (0.57-1.11); EST GLOMERULAR FILTRATION RATE > 60 ML/MIN (60-); GLUCOSE 136 mg/dL (74-118); POTASSIUM 4.4 mmol/L (3.5-5.1); SODIUM 140 mmol/L (136-145)
[2020-02-03] MEDS: FENTANYL 2000MCG/NS 250 250 ML IV PRN ×2 (05:35→15:33)
[2020-02-03] MEDS ORDERED: ALBUMIN 25% 25GM 100ML 0.25 GM/ML BTL IV ONE (07:30)
[2020-02-03] MEDS ORDERED: FUROSEMIDE INJ 10 MG/ML 4 ML VIAL IV ONE (07:30)
[2020-02-03] MEDS: FAMOTIDINE 20 MG/2 ML VIAL IV SCH ×2 (08:03→16:55)
[2020-02-03] MEDS: DEXAMETHASONE SOD PHOS 10 MG/1 ML VIAL IV SCH (08:03)
[2020-02-03] MEDS: ASCORBIC ACID 500 MG TAB PO SCH ×2 (08:04→16:55)
[2020-02-03] MEDS: POTASSIUM CHLORIDE 20MEQ/15ML UDC NG SCH (08:04)
[2020-02-03] MEDS: ZINC SULFATE 220 MG CAP PO SCH (08:04)
[2020-02-03] MEDS: BALSAM PERU/CASTOR OIL 60 GM OINT...G. TP SCH (08:04)
[2020-02-03] MEDS: EYE LUBRICANT OPTH OINT 3.5GM TUBE OP SCH (08:04)
[2020-02-03] MEDS ORDERED: ALBUMIN 25% 25GM 100ML 100 ML IV ONE (08:15)
--- NOTE | 2020-02-03 08:53 | Progress Note ---
DATE: Pulmonary Critical Care Progress Note SUBJECTIVE: The patient had some desaturations yesterday. A repeat chest x-ray showed worsening pulmonary edema. She received albumin and Lasix with increased urine output. She also had an echocardiogram, which showed normal right ventricular function. She was started on rocuronium and has been weaned down to 55% FiO2 with 10 of PEEP. Her PRVC is set at a rate of 24 with a tidal volume of 400. PHYSICAL EXAMINATION: VITAL SIGNS: The patient is afebrile, blood pressure is 96/45, and saturations 92% to 94%. Ventilator settings are as noted above. She is on propofol at 30 mcg as well as fentanyl at 200 mcg. HEENT: She has an oral endotracheal tube in place. She has a right IJ line in place. The site looks clean. CARDIAC: Reveals a regular rate and rhythm with normal S1 and S2. LUNGS: Auscultation of lungs reveals crackles at the bases. There is no wheezing. ABDOMEN: Soft and nontender. There is no rebound or guarding. EXTREMITIES: Show no leg edema or calf tenderness. There is no cyanosis or clubbing. SKIN: Shows no rashes. NEUROLOGICAL: Shows the patient to be sedated. LABORATORY DATA: Electrolytes are within normal limits. The carbon dioxide is slightly increased to 31 and the BUN to creatinine ratio is normal. The glucose is 136. Albumin is 1.9. Hemoglobin is 8.4, white blood cell count is 13.1, and platelet count is 389. IMPRESSION: 1. Acute respiratory failure. 2. Deep vein thrombosis of the upper extremities. 3. Viral pneumonia and coronavirus disease 2019 infection. 4. Diabetes. 5. Acute kidney injury. PLAN: 1. Albumin and Lasix again today. 2. Continue PRVC mode of ventilation with lung protective strategy. Repeat ABG. 3. Stop rocuronium and continue Versed and fentanyl. 4. Continue Lovenox at 1 mg/kg twice daily. 5. Continue dexamethasone. 6. Continue enteral feedings. 7. Specialty bed to prevent decubitus ulcers. 8. Case discussed with nightshift nursing, dayshift nursing, Respiratory, family, Infectious Disease, and administration. Greater than 35 minutes in direct critical care time. Richard Thompson MD [facility]/ELVA /[id number]
[2020-02-03 09:23] LABS: ABG HCO3 28 mmol/L (22-26); ABG PCO2 34 mmHg (35-45); ABG PH 7.52 (7.35-7.45); ABG PO2 45 mmHg (80-105)
--- NOTE | 2020-02-03 17:01 | Progress Note ---
DATE: SUBJECTIVE: Ms. Durham remains in intensive care unit. The patient remains intubated. OBJECTIVE: HEENT: Not icteric. NECK: Supple. CHEST: Few crackles. COR: S1, S2. The patient has got worse yesterday, desaturated. IMAGING DATA: Chest x-ray showed pneumonia with edema. LABORATORY DATA: Laboratory data reviewed. Chart reviewed. Discussed with medical team. IMPRESSION AND PLAN: 1. Acute respiratory failure, worsening condition. This is a concern superimposed infection versus other. 2. Coronavirus disease-19, present on admission. 3. Diabetes mellitus. 4. Acute kidney injury. The patient is currently on dexamethasone. Continue with respiratory support. Continue with the supportive care as ordered. All medications reviewed. We will get sputum cultures. We will get blood cultures and then reassess. MD ARLYN Lea/MODL /[id number]
[2020-02-03] MEDS: INSULIN REGULAR, HUMAN 3ML VL 100 UNIT in SODIUM CHLORIDE 0.9% 100 ML IV SCH ×2 (18:07)
[2020-02-03 21:07] LABS: ABG PCO2 43 mmHg (35-45); ABG PH 7.48 (7.35-7.45); ABG PO2 61 mmHg (80-105)
[2020-02-03 21:08] LABS: ABG HCO3 32 mmol/L (22-26)
--- NOTE | 2020-02-03 21:14 | NUR ---
Notified Dr. Thompson of [facility] results. No new orders received.
[2020-02-04] VITALS (43 sets, daily range): BP systolic 75–214; BP diastolic 46–92
[2020-02-04] MEDS: PROPOFOL IV EMULSION 50 ML IV PRN ×8 (01:00→22:43)
--- NOTE | 2020-02-04 01:22 | Progress Note ---
DATE: 02/03/2020 Nephrology Progress Note SUBJECTIVE: The patient is still intubated. No overnight events. PHYSICAL EXAMINATION: VITAL SIGNS: Temperature is 98.5, pulse respiratory rate is 28, blood pressure is 157/60, and pulse ox 93% on mechanical ventilator. GENERAL: Intubated and sedated. PULMONARY: Intubated and sedated. CARDIOVASCULAR: Intubated and sedated. ABDOMEN: Soft, nondistended, nontender to palpation. Bowel sounds present. CARDIOVASCULAR: Positive S1 and S2. No murmurs, gallops, or rubs appreciated. MUSCULOSKELETAL: Intubated and sedated. SKIN: Intact. Warm to touch. Good cap refill. EXTREMITIES: Shows some trace edema. LABORATORY FINDINGS: White count 13, hemoglobin 8.5, hematocrit 27, and platelets of 389. Chemistry; sodium 140, potassium 4.4, chloride 103, bicarb 31, anion gap of 10, BUN is 22, creatinine is 0.54, glucose is 136, and calcium is 8. LFTs within normal range. Albumin is 1.9. Coronavirus is positive. Microbiology; none. Chest x-ray this morning still shows worsening bilateral multifocal airspace opacities. IMPRESSION: 1. Nonoliguric secondary to blood pressure fluctuations, now improved with normal electrolytes. 2. Electrolyte abnormalities, replaced accordingly. 3. Respiratory failure secondary Coronavirus pneumonia, intubated and sedated. 4. Bilateral upper extremity deep vein thrombosis. PLAN: At this time, we will continue with full-dose Lovenox. Replace electrolytes accordingly. Electrolyte protocol on board. Get a.m. labs. Follow with primary team. MD MUSA Sainz/MODL /[id number]
--- NOTE | 2020-02-04 02:43 | NUR ---
Patient desat to 86%, FiO2 increased to 100% but persistently breathing heavily on vent and O2 sats less than 92%. BP elevated to 200/80s and HR elevated. Dr. Thompson notified, ABG results read back to MD. New orders received.
[2020-02-04 04:27] LABS: ABG HCO3 33 mmol/L (22-26); ABG PCO2 50 mmHg (35-45); ABG PH 7.43 (7.35-7.45); ABG PO2 48 mmHg (80-105)
--- NOTE | 2020-02-04 04:33 | Diagnostic Imaging Report ---
Examination: Single AP view of the chest. COMPARISON: Portable chest 02/02/2020 INDICATION: Multiple desaturation on ventilator, dyspnea IMPRESSION: 1. Lines and Tubes: Endotracheal tube has distal tip 3.8 cm above the adriana. Stable enteric tube and IJ right central line. 2. No interval change in bilateral diffuse interstitial and airspace opacities left greater than right, likely multifocal pneumonia Signed by: Dr. Issa Schmid M.D. on 02/04/2020 4:30 AM
[2020-02-04] MEDS ORDERED: ALBUMIN 25% 12.5GM 0.25 GM/ML BTL IV ONE (04:45)
[2020-02-04] MEDS ORDERED: FUROSEMIDE INJ 10 MG/ML 4 ML VIAL IV ONE (04:45)
[2020-02-04] MEDS: ENOXAPARIN INJ 80 MG/0.8 ML SYR SC SCH ×2 (05:00→18:28)
[2020-02-04 05:26] LABS: BASOPHILS % 0.2 % (0.0-1.0); EOSINOPHILS # (AUTO) 0.2 (0.0-0.4); EOSINOPHILS % 1.1 % (0.0-6.0); HEMATOCRIT 30.8 % (34.2-44.1); HEMOGLOBIN 9.5 g/dL (12.0-16.0); LYMPHOCYTES # (AUTO) 1.2 (1.0-3.2); LYMPHOCYTES % 6.6 % (18.0-39.1); MEAN CORPUSCULAR HEMOGLOBIN 29.1 pg (28-32); MEAN CORPUSCULAR HGB CONC 30.8 g/dL (31-35); MEAN CORPUSCULAR VOLUME 94.2 fL (81-99); MONOCYTES # (AUTO) 0.2 (0.2-0.8); MONOCYTES % 1.2 % (4.4-11.3); NEUTROPHILS # (AUTO) 15.4 (2.1-6.9); NEUTROPHILS % 89.1 % (38.7-80.0); PLATELET COUNT 491 x10e3/uL (140-360); RED BLOOD COUNT 3.27 x10e6/uL (3.6-5.1); RED CELL DISTRIBUTION WIDTH 14.9 % (11.7-14.4)
[2020-02-04 06:04] LABS: ALANINE AMINOTRANSFERASE 24 IU/L (0-55); ALBUMIN 2.2 g/dL (3.5-5.0); ALBUMIN/GLOBULIN RATIO 0.6 (0.8-2.0); ALKALINE PHOSPHATASE 95 IU/L (40-150); ANION GAP 11.8 mmol/L (8-16); BLOOD UREA NITROGEN 23 mg/dL (7-26); BUN/CREATININE RATIO 38 (6-25); CARBON DIOXIDE 30 mmol/L (22-29); CHLORIDE 100 mmol/L (98-107); CREATININE, SERUM 0.61 mg/dL (0.57-1.11); EST GLOMERULAR FILTRATION RATE > 60 ML/MIN (60-); GLUCOSE 114 mg/dL (74-118); POTASSIUM 3.8 mmol/L (3.5-5.1); SODIUM 138 mmol/L (136-145)
--- NOTE | 2020-02-04 06:47 | NUR ---
0445- Read CXR results to Dr. Thompson. New orders received.
--- NOTE | 2020-02-04 06:48 | NUR ---
Spoke with answering service for Dr. Sanz regarding new consult.
[2020-02-04] MEDS ORDERED: VECURONIUM BROMIDE FOR INJ 20 MG VIAL IV STA (07:31)
--- NOTE | 2020-02-04 08:15 | Progress Note ---
DATE: SUBJECTIVE: The patient became tachycardic and agitated early this morning. She desaturated and had to be increased to 100%. She was subsequently suctioned by respiratory therapy. A stat portable chest x-ray showed no change. Her sedation was increased. Her Diprivan was increased to 80 and she was continued on the fentanyl. Her blood pressure subsequently improved. She has been decreased to 90%. PHYSICAL EXAMINATION: VITAL SIGNS: Blood pressure is 106/62 and heart rate is 110. She is on a PRVC mode of ventilation at a rate of 24 with a tidal volume of 400 and FiO2 of 90%. Her PEEP is set at 10. HEENT: She has a right IJ line in place. She has tracheostomy. Endotracheal tube in good position. CARDIAC: Reveals tachycardia with normal S1 and S2. LUNGS: Auscultation of lungs reveals crackles at the bases. There is no wheezing. ABDOMEN: Soft and nontender. There is no rebound or guarding. EXTREMITIES: Show no leg edema or calf tenderness. There is no cyanosis or clubbing. SKIN: Shows no rashes. NEUROLOGICAL: Shows no focal abnormalities. The patient is sedated. LABORATORY DATA: BUN to creatinine ratio is 23 and 0.61. The carbon dioxide is 30. Other electrolytes are within normal limits. The albumin is 2.2. White blood cell count is increased to 17, hemoglobin is 9.5, and platelet count is 491. IMPRESSION: 1. Acute respiratory failure. 2. Right upper extremity deep venous thrombosis and left upper extremity partial deep venous thrombosis. 3. Viral pneumonia and coronavirus disease 2019. 4. Diabetes. 5. Tachycardia. PLAN: 1. Continue PRVC mode of ventilation with lung protective strategy. 2. Increase Lovenox to 100 mg/kg twice daily. 3. Complete dexamethasone. 4. Enteral feedings. 5. Cardiology consultation. 6. Specialty bed to prevent decubitus prophylaxis. 7. Case discussed with nightshift nursing, dayshift nursing, Respiratory, family, Infectious Disease, and administration. Greater than 35 minutes in direct critical care time. Richard Thompson MD [facility]/MODL /[id number]
[2020-02-04] MEDS ORDERED: SODIUM CHLORIDE 0.9% 1000ML 1,000 ML ONE (08:38)
[2020-02-04] MEDS: DEXAMETHASONE SOD PHOS 10 MG/1 ML VIAL IV SCH (08:53)
[2020-02-04] MEDS: FAMOTIDINE 20 MG/2 ML VIAL IV SCH ×2 (08:53→16:31)
[2020-02-04] MEDS: ZINC SULFATE 220 MG CAP PO SCH (08:54)
[2020-02-04] MEDS: BALSAM PERU/CASTOR OIL 60 GM OINT...G. TP SCH (08:54)
[2020-02-04] MEDS: EYE LUBRICANT OPTH OINT 3.5GM TUBE OP SCH (08:54)
[2020-02-04] MEDS: POTASSIUM CHLORIDE 20MEQ/15ML UDC NG SCH (08:54)
[2020-02-04] MEDS: ASCORBIC ACID 500 MG TAB PO SCH ×2 (08:54→16:31)
[2020-02-04 09:22] LABS: ABG HCO3 33 mmol/L (22-26); ABG PCO2 52 mmHg (35-45); ABG PH 7.41 (7.35-7.45); ABG PO2 52 mmHg (80-105)
[2020-02-04 09:51] LABS: BILIRUBIN,URINE NEGATIVE (NEGATIVE); CLARITY,URINE CLEAR (CLEAR); COLOR,URINE YELLOW (YELLOW); KETONES,URINE NEGATIVE (NEGATIVE); LEUKOCYTE ESTERASE ,URINE NEGATIVE (NEGATIVE); NITRITE,URINE NEGATIVE (NEGATIVE); PROTEIN,URINE DIPSTICK 1+ (NEGATIVE); URINE UROBILINOGEN 1 mg/dL (0.2 - 1)
[2020-02-04 10:09] LABS: BACTERIA,URINE FEW /HPF; EPITHELIAL CELLS,URINE FEW /LPF; RBC,URINE 0-5 /HPF (0-5); WBC,URINE (MAN) 0-5 /HPF (0-5)
[2020-02-04 10:10] LABS: AMORPHOUS SEDIMENT,URINE FEW (FEW)
--- NOTE | 2020-02-04 12:40 | Progress Note ---
DATE: SUBJECTIVE: The patient is seen and evaluated. Available labs and notes reviewed. Discussed with staff. REVIEW OF SYSTEMS: Unable to obtain review of systems secondary to patient's medical condition. Discussed with the nurse. The patient had some worsening of her respiratory function, also fluctuating blood pressure and T-max of 102.1 last night. PEEP was increased from 10-14 with the oxygen at 60% was moved up to 90%. The patient remains on no pressors, but remains on propofol, insulin, and fentanyl. OBJECTIVE: VITAL SIGNS: Temperature max 102.1 this morning at 3 o'clock has improved to 100.2. GENERAL: Supine in bed, orally intubated with feeding tube. CV: S1, S2. CHEST: Diminished breath sounds, equal expansion. ABDOMEN: Soft, obese, and positive bowel sounds. HEENT: Moist. No pallor. No JVD. EXTREMITIES: No significant edema. No cyanosis. LABORATORY DATA: White counts went up from 13.12 to 17.34, hemoglobin 9.5, platelet 491. Sodium 138, potassium 3.8, creatinine 0.61, AST 56, which is up from 26, ALT 24, ALP 95, total protein of 5.9. Procalcitonin pending. Serology: Coronavirus PCR positive on 01/21/2020. MICROBIOLOGY: Sputum culture pending from today. Previous sputum culture showed usual respiratory damaso. RADIOLOGY STUDIES: Chest x-ray from today suggested no interval change in bilateral diffuse interstitial and airspace opacities, left greater than right, likely multifocal pneumonia. ASSESSMENT AND PLAN: 1. Acute respiratory failure with worsening of pulmonary function as mentioned above. 2. Concern superimposed infection versus others. 3. Positive coronavirus disease. 4. Fluctuating blood pressure. 5. Diabetes. 6. Acute kidney injury. 7. Anemia. 8. Leukocytosis. 9. Remains on vitamin C, zinc sulfate, dexamethasone, insulin drip, Lovenox. Overall poor prognosis. Off antibiotics. Follow with the respiratory culture. Discussed with Dr. Fernandez. Please refer to chart for more information. Dictated by Sean Hernandez PA-C (Al) Raul Fernandez MD /MODL /[id number]
[2020-02-04] MEDS: NOREPINEPHRINE INJ 4MG/4ML 8 MG in DEXTROSE 5% 250ML 250 ML IV SCH (16:30)
[2020-02-04] MEDS: FENTANYL 2000MCG/NS 250 250 ML IV PRN ×2 (16:32→23:33)
[2020-02-04] MEDS ORDERED: ENOXAPARIN INJ 80 MG/0.8 ML SYR SC SCH (18:00)
--- NOTE | 2020-02-04 18:31 | Progress Note ---
DATE: 02/04/2020 Nephrology Progress Note SUBJECTIVE: The patient is intubated, requiring significant amount of oxygen. PHYSICAL EXAMINATION: VITAL SIGNS: Temperature 98.2, pulse 70, respiratory rate is 22, blood pressure 134/61, and pulse ox 100%. She is on a mechanical ventilator. FiO2 of 90%. GENERAL: Intubated and sedated. PULMONARY: Intubated and sedated. CARDIOVASCULAR: Positive S1 and S2. No murmurs, rubs, or gallops appreciated. ABDOMEN: Soft, nondistended, and nontender to palpation. MUSCULOSKELETAL: Unable to assess. NEUROLOGIC: Unable to assess. SKIN: Intact. Warm to touch. Good cap refill. EXTREMITIES: Shows some trace edema. LABORATORY DATA: White count 17, hemoglobin 9.5, hematocrit is 31, and platelets of 491. Chemistry; sodium 138, potassium 3.8, chloride 100, bicarb 30, anion gap of 11, BUN is 23, creatinine is 0.61, glucose 114, and calcium is 8. LFTs noted. Albumin 2.2. MICROBIOLOGY: Sputum culture, no growth to date. IMAGING STUDIES: Chest x-ray shows no interval change in bilateral diffuse interstitial airspace opacities, left greater than right, likely multifocal pneumonia. IMPRESSION: 1. Nonoliguric secondary to blood pressure fluctuation, now improved with normal electrolytes. 2. Electrolyte abnormalities, on electrolyte replacement. 3. Respiratory failure secondary to coronavirus pneumonia, intubated and sedated. 4. Bilateral upper extremity deep venous thrombosis. PLAN: At this time, continue with full dose Lovenox. Electrolytes are replaced accordingly. Monitor closely. Follow with primary team. MD MUSA Sainz/MODL /[id number]
[2020-02-04] MEDS: INSULIN REGULAR, HUMAN 3ML VL 100 UNIT in SODIUM CHLORIDE 0.9% 100 ML IV SCH ×2 (20:39)
--- NOTE | 2020-02-04 20:45 | Consultation ---
DATE OF CONSULTATION: Cardiology Consultation CONSULTING PHYSICIAN: Balwinder Mack, Interventional Cardiology. REASON FOR CONSULTATION: Labile hemodynamics, shortness of breath. HISTORY OF PRESENT ILLNESS: A 69-year-old woman with history of diabetes, hypertension, dyslipidemia, and morbid obesity, presents with worsening respiratory failure, diagnosed with community-acquired COVID-19 pneumonia, developed acute respiratory failure, requiring endotracheal intubation. She has been observed to have upper extremity edema and diagnosed with upper extremity DVT. She is on anticoagulation with Lovenox as a result. Today, she has had a bout transient hypoxemia, tachycardia, and hypotension, for which Levophed has been initiated. The patient currently has demonstrated improvement in her hemodynamics. REVIEW OF SYSTEMS: Twelve-system review unable to assess. PAST MEDICAL HISTORY: As per HPI. ALLERGIES: NO KNOWN DRUG ALLERGIES. SOCIAL HISTORY: Unable to assess. FAMILY HISTORY: Unable to assess. PHYSICAL EXAMINATION: VITAL SIGNS: Temperature 98.2, heart rate 70, blood pressure 134/61, respiratory rate 22, and O2 saturation 100%. BMI 38. GENERAL: Intubated and sedated. NECK: Supple. CHEST: Decreased breath sounds and scattered rales. CARDIOVASCULAR: Regular rate and rhythm. Normal S1, S2. No S3. No S4. No murmurs, no rubs. ABDOMEN: Soft. Bowel sounds positive. EXTREMITIES: Trace lower extremity edema and 1+ upper extremity edema. Warm distal extremities throughout. CARDIOVASCULAR MEDICATIONS: Reviewed. 1. Lovenox mg subcu q.12 hours. 2. Levophed drip. LABORATORY DATA: Studies reviewed. Creatinine 0.6, potassium 3.8, bicarbonate 30, sodium 138, chloride 100, and BUN 23. White blood cells 17.3, hemoglobin 9.5, and platelets 491. AST 56, ALT 24, alkaline phosphatase 95, and total bilirubin is 1.1. ASSESSMENT AND PLAN: A 69-year-old woman with community-acquired COVID-19 pneumonia and acute respiratory failure requiring endotracheal intubation, upper extremity DVT, septic shock, and anemia. RECOMMENDATIONS: 1. Continue supportive care and maintain pressors for MAP 65 to 75. Continue anticoagulation with Lovenox in the setting of upper extremity DVTs, suspect underlying thromboembolic event possibility, treated as such. 2. An echocardiogram reviewed. Preserved left ventricular systolic function. RV normal in size. Unable to estimate RVSP . We will follow closely with you. MD MARIO Yee/MODL /[id number]
[2020-02-04 21:00] LABS: ABG HCO3 33 mmol/L (22-26); ABG PCO2 56 mmHg (35-45); ABG PH 7.38 (7.35-7.45); ABG PO2 137 mmHg (80-105)
--- NOTE | 2020-02-04 21:18 | NUR ---
Results of ABG read to Dr. Jay MD ordered to titrate FiO2 to 60% as tolerated. RT notified.
[2020-02-05] VITALS (45 sets, daily range): BP systolic 72–201; BP diastolic 38–81
[2020-02-05] MEDS: PROPOFOL IV EMULSION 50 ML IV PRN ×7 (02:33→23:15)
[2020-02-05] MEDS: BISACODYL 10 MG SUPP PR PRN (03:30)
[2020-02-05 05:42] LABS: BASOPHILS % 0.2 % (0.0-1.0); EOSINOPHILS # (AUTO) 0.2 (0.0-0.4); EOSINOPHILS % 1.5 % (0.0-6.0); HEMATOCRIT 27.7 % (34.2-44.1); HEMOGLOBIN 8.3 g/dL (12.0-16.0); LYMPHOCYTES # (AUTO) 1.1 (1.0-3.2); LYMPHOCYTES % 7.5 % (18.0-39.1); MEAN CORPUSCULAR VOLUME 93.6 fL (81-99); MONOCYTES # (AUTO) 0.3 (0.2-0.8); MONOCYTES % 1.7 % (4.4-11.3); NEUTROPHILS # (AUTO) 12.7 (2.1-6.9); NEUTROPHILS % 87.6 % (38.7-80.0); PLATELET COUNT 485 x10e3/uL (140-360); RED BLOOD COUNT 2.96 x10e6/uL (3.6-5.1); RED CELL DISTRIBUTION WIDTH 15.2 % (11.7-14.4)
[2020-02-05] MEDS: ENOXAPARIN INJ 80 MG/0.8 ML SYR SC SCH ×2 (06:00→17:19)
[2020-02-05] MEDS: FENTANYL 2000MCG/NS 250 250 ML IV PRN ×2 (06:25→15:03)
[2020-02-05 06:35] LABS: MAGNESIUM 2.1 MG/DL (1.3-2.1)
[2020-02-05 07:00] LABS: ALANINE AMINOTRANSFERASE 25 IU/L (0-55); ALBUMIN 2.1 g/dL (3.5-5.0); ALBUMIN/GLOBULIN RATIO 0.6 (0.8-2.0); ALKALINE PHOSPHATASE 87 IU/L (40-150); ANION GAP 14.2 mmol/L (8-16); BLOOD UREA NITROGEN 24 mg/dL (7-26); BUN/CREATININE RATIO 39 (6-25); CALCIUM 8.2 mg/dL (8.4-10.2); CARBON DIOXIDE 29 mmol/L (22-29); CHLORIDE 99 mmol/L (98-107); CREATININE, SERUM 0.62 mg/dL (0.57-1.11); EST GLOMERULAR FILTRATION RATE > 60 ML/MIN (60-); GLUCOSE 193 mg/dL (74-118); POTASSIUM 4.2 mmol/L (3.5-5.1); SODIUM 138 mmol/L (136-145)
--- NOTE | 2020-02-05 07:00 | Diagnostic Imaging Report ---
Examination: Single AP view of the chest. COMPARISON: Portable chest 02/04/2020 INDICATION: Respiratory failure, pneumonia IMPRESSION: 1. Lines and Tubes: Supporting lines and tubes are unchanged. 2. No interval change in bilateral diffuse interstitial and airspace opacities, left greater than right, consistent with multifocal pneumonia. Signed by: Dr. Issa Schmid M.D. on 02/05/2020 6:57 AM
[2020-02-05] MEDS: DEXAMETHASONE SOD PHOS 10 MG/1 ML VIAL IV SCH (07:39)
[2020-02-05] MEDS: FAMOTIDINE 20 MG/2 ML VIAL IV SCH ×2 (08:04→16:28)
[2020-02-05] MEDS: ASCORBIC ACID 500 MG TAB PO SCH ×2 (08:04→16:28)
[2020-02-05] MEDS: BALSAM PERU/CASTOR OIL 60 GM OINT...G. TP SCH (08:04)
[2020-02-05] MEDS: EYE LUBRICANT OPTH OINT 3.5GM TUBE OP SCH (08:04)
[2020-02-05] MEDS: POTASSIUM CHLORIDE 20MEQ/15ML UDC NG SCH (08:04)
[2020-02-05] MEDS: ZINC SULFATE 220 MG CAP PO SCH (08:04)
--- NOTE | 2020-02-05 09:18 | Progress Note ---
DATE: SUBJECTIVE: The patient is afebrile. She was down to 60%, but became tachycardic and had some desaturations early this morning. She had to be increased back to 80%. She remains on enteral feedings. She is on fentanyl at 300 mics and propofol at 40. PHYSICAL EXAMINATION: VITAL SIGNS: The blood pressure is 132/58 and saturation is 92%. She is on a PRVC at a rate of 24 with a tidal volume of 400 and a FiO2 of 80%. Her PEEP is set at 14. HEENT: Shows an oral endotracheal tube. There is a right IJ line. The site looks clean. There is no drainage. CARDIAC: Reveals a regular rate and rhythm with normal S1, S2. LUNGS: Auscultation of lungs reveals crackles at the bases. There is no wheezing. ABDOMEN: Soft and nontender. There is no rebound or guarding. EXTREMITIES: No leg edema or calf tenderness. There is no cyanosis or clubbing. SKIN: No rashes. NEUROLOGICAL: No focal abnormalities. The patient is currently sedated. LABORATORY DATA: White blood cell count is 14.4 and hemoglobin is 8.3. The platelet count is 485. The BUN to creatinine ratio is 24 to 0.62. Other electrolytes are within normal limits. The albumin is 2.1. RADIOGRAPHIC DATA: Bilateral infiltrates. IMPRESSION: 1. Acute respiratory failure. 2. Right upper extremity deep vein thrombosis. 3. Viral pneumonia and coronavirus disease-19 infection. 4. Diabetes. PLAN: 1. Change to Versed with fentanyl. 2. Continue Lovenox at 100 mg/kg twice a day. 3. Continue dexamethasone. 4. Continue enteral feedings. 5. Case discussed with nursing staff, Respiratory, family, Cardiology, and administration. Greater than 35 minutes in direct critical care time. Richard Thompson MD [facility] /[id number]
[2020-02-05] MEDS: MIDAZOLAM HCL 5MG/ML 10ML VIAL 100 ML IV PRN ×3 (09:32→20:08)
[2020-02-05] MEDS: NOREPINEPHRINE INJ 4MG/4ML 8 MG in DEXTROSE 5% 250ML 250 ML IV SCH (11:45)
[2020-02-05 13:07] LABS: ABG HCO3 31 mmol/L (22-26); ABG PCO2 50 mmHg (35-45); ABG PH 7.41 (7.35-7.45); ABG PO2 79 mmHg (80-105)
--- NOTE | 2020-02-05 14:04 | Progress Note ---
DATE: 02/05/2020 Nephrology Progress Note SUBJECTIVE: The patient is still intubated. She is still on significant amount of oxygen and significant amount of sedation. PHYSICAL EXAMINATION: VITAL SIGNS: Temperature is 100, pulse 80, respirations 19, blood pressure 95/45, and pulse ox 98%. She is on 80% FiO2 on a mechanical ventilator. GENERAL: Intubated and sedated. PULMONARY: Intubated and sedated. CARDIOVASCULAR: Positive S1, S2. No murmurs, rubs, or gallops appreciated. ABDOMEN: Soft, nondistended, nontender to palpation. Bowel sounds present. MUSCULOSKELETAL: Intubated and sedated. NEUROLOGIC: Intubated and sedated. SKIN: Intact. Warm to touch. Good cap refill. EXTREMITIES: Trace edema appreciated. LABORATORY DATA: Reviewed. White count 14, hemoglobin 8.3, hematocrit 27, and platelets of 485. Chemistry; sodium 138, potassium 4.3, chloride 99, bicarb 29, anion gap of 14, BUN 24, creatinine 0.62, and glucose 193. Microbiology, none. IMAGING STUDIES: Chest x-ray this morning still shows bilateral diffuse interstitial airspace opacity, left greater than right, consistent with multifocal pneumonia. IMPRESSION: 1. Nonoliguric secondary to blood pressure fluctuation, now improved with normal electrolytes. 2. Electrolyte abnormalities, on electrolyte replacement. 3. Respiratory failure secondary to coronavirus pneumonia, intubated and sedated. 4. Bilateral upper extremity deep venous thrombosis. PLAN: At this time, continue full-dose Lovenox. Electrolytes are replaced accordingly. Urine output is good. Continue to follow with primary team. MD MUSA Sainz/MODL /[id number]
[2020-02-05] MEDS ORDERED: ROCURONIUM BROMIDE 10 MG/ML 5ML VIAL IV ONE ×2 (14:30→15:00)
--- NOTE | 2020-02-05 16:24 | Progress Note ---
DATE: Cardiology Progress Note SUBJECTIVE: Intubated and sedated. OBJECTIVE: VITAL SIGNS: Temperature 98.5, heart rate 83, respiratory rate 32, blood pressure 111/50, and O2 saturation 98% on vent support and pressor support. GENERAL: Intubated and sedated. NECK: Supple. CHEST: With decreased breath sounds. CARDIOVASCULAR: Regular rate and rhythm. Normal S1 and S2. No S3 or S4. ABDOMEN: Soft. Bowel sounds positive. EXTREMITIES: Trace edema. CARDIOVASCULAR MEDICATIONS: Reviewed. Lovenox 100 mg subcutaneous q.12 hours, hydralazine 10 mg IV q.4 hours p.r.n. STUDIES: Reviewed. White blood cells 14, hemoglobin 8, and platelets 485. Creatinine 0.6 and glucose 293. ABG 7.41, 50, 79. ASSESSMENT AND PLAN: 1. Acute respiratory failure. 2. Right upper extremity deep venous thrombosis. 3. Viral pneumonia and COVID disease-19 infection, community-acquired pneumonia, and acute respiratory failure. 4. Diabetes mellitus. 5. Anemia and septic shock. RECOMMEND: 1. Continue to wean pressors for MAP 65 to 75. 2. Continue anticoagulation in the setting of upper extremity DVT. 3. Preserved LV systolic function. Balwinder Mack MD [facility]/MODL /[id number]
[2020-02-05 19:51] LABS: ABG HCO3 32 mmol/L (22-26); ABG PCO2 50 mmHg (35-45); ABG PO2 76 mmHg (80-105)
[2020-02-05] MEDS ORDERED: FUROSEMIDE INJ 10 MG/ML 4 ML VIAL IV NR (20:00)
[2020-02-05] MEDS ORDERED: ALBUMIN 25% 25GM 100ML 0.25 GM/ML BTL IV ONE (20:00)
[2020-02-05] MEDS ORDERED: ROCURONIUM BROMIDE 250 MG in SODIUM CHLORIDE 0.9% 250ML 225 ML IV SCH (20:00)
--- NOTE | 2020-02-05 22:10 | NUR ---
1999- Dr. Thompson on unit, hand delivered ABG results. MD ordered to start rocuronium gtt and prone patient. New orders received. 2199- Updated MD on pt condition, elevated BP, and initiation of gtt. MD ordered to restart propofol in addition to current sedation.
[2020-02-06] VITALS (24 sets, daily range): BP systolic 85–172; BP diastolic 43–69
--- NOTE | 2020-02-06 01:00 | NUR ---
Proned patient at 0030. Per RT, pt not tolerating proning well per vent, HR 120. RT spoke with Dr. Thompson regarding situation. MD ordered to return pt supine. Patient tolerates supine position much better.
[2020-02-06] MEDS ORDERED: ROCURONIUM BROMIDE IV ONE (01:24)
[2020-02-06] MEDS: ROCURONIUM BROMIDE 250 MG in SODIUM CHLORIDE 0.9% 250ML 225 ML IV SCH ×2 (01:24→22:30)
[2020-02-06] MEDS ORDERED: SODIUM CHLORIDE 0.9% 250ML 250 ML ONE (01:27)
[2020-02-06] MEDS ORDERED: NOREPINEPHRINE 8 MG/D5W 250 ML 250 ML ONE (01:29)
[2020-02-06] MEDS: MIDAZOLAM HCL 5MG/ML 10ML VIAL 100 ML IV PRN ×2 (01:30→10:32)
[2020-02-06] MEDS: FENTANYL 2000MCG/NS 250 250 ML IV PRN ×2 (01:55→17:45)
[2020-02-06 04:53] LABS: BASOPHILS % 0.1 % (0.0-1.0); EOSINOPHILS # (AUTO) 0.1 (0.0-0.4); EOSINOPHILS % 0.9 % (0.0-6.0); HEMATOCRIT 24.6 % (34.2-44.1); HEMOGLOBIN 7.5 g/dL (12.0-16.0); LYMPHOCYTES # (AUTO) 0.9 (1.0-3.2); LYMPHOCYTES % 6.2 % (18.0-39.1); MEAN CORPUSCULAR HEMOGLOBIN 28.7 pg (28-32); MEAN CORPUSCULAR HGB CONC 30.5 g/dL (31-35); MEAN CORPUSCULAR VOLUME 94.3 fL (81-99); MONOCYTES # (AUTO) 0.4 (0.2-0.8); MONOCYTES % 2.3 % (4.4-11.3); NEUTROPHILS # (AUTO) 13.3 (2.1-6.9); NEUTROPHILS % 89.1 % (38.7-80.0); PLATELET COUNT 504 x10e3/uL (140-360); RED BLOOD COUNT 2.61 x10e6/uL (3.6-5.1)
[2020-02-06 05:18] LABS: ALANINE AMINOTRANSFERASE 17 IU/L (0-55); ALBUMIN 2.1 g/dL (3.5-5.0); ALBUMIN/GLOBULIN RATIO 0.6 (0.8-2.0); ALKALINE PHOSPHATASE 68 IU/L (40-150); ANION GAP 12.7 mmol/L (8-16); BLOOD UREA NITROGEN 24 mg/dL (7-26); BUN/CREATININE RATIO 40 (6-25); CALCIUM 7.8 mg/dL (8.4-10.2); CARBON DIOXIDE 29 mmol/L (22-29); CHLORIDE 101 mmol/L (98-107); EST GLOMERULAR FILTRATION RATE > 60 ML/MIN (60-); GLUCOSE 174 mg/dL (74-118); POTASSIUM 4.7 mmol/L (3.5-5.1); SODIUM 138 mmol/L (136-145)
[2020-02-06] MEDS: ENOXAPARIN INJ 80 MG/0.8 ML SYR SC SCH ×2 (06:15→18:14)
--- NOTE | 2020-02-06 06:59 | Diagnostic Imaging Report ---
Examination: Single AP view of the chest. COMPARISON: Portable chest 02/05/2020 INDICATION: Respiratory failure IMPRESSION: 1. Lines and Tubes: Supporting lines and tubes are unchanged. 2. No interval change in bilateral diffuse interstitial and airspace opacities consistent with multifocal pneumonia. Signed by: Dr. Issa Schmid M.D. on 02/06/2020 6:55 AM
[2020-02-06] MEDS: FAMOTIDINE 20 MG/2 ML VIAL IV SCH ×2 (09:38→18:14)
[2020-02-06] MEDS: POTASSIUM CHLORIDE 20MEQ/15ML UDC NG SCH (09:38)
[2020-02-06] MEDS: ASCORBIC ACID 500 MG TAB PO SCH ×2 (09:38→18:14)
[2020-02-06] MEDS: ZINC SULFATE 220 MG CAP PO SCH (09:38)
[2020-02-06] MEDS: EYE LUBRICANT OPTH OINT 3.5GM TUBE OP SCH (09:38)
--- NOTE | 2020-02-06 09:46 | Progress Note ---
DATE: 02/06/2020 Cardiology Progress Note SUBJECTIVE: Remains intubated and sedated. Overnight was prone, back and forth due to issues with hypoxemia. OBJECTIVE: VITAL SIGNS: Currently, sinus rhythm on telemetry. Temperature 97.6, heart rate 68, blood pressure 93/58, respiratory rate 24, and O2 saturation 100%. BMI 38. GENERAL: Intubated and sedated. CARDIOVASCULAR: Regular rate and rhythm. Normal S1 and S2. CHEST: On vent support, PEEP of 14, FiO2 75%. EXTREMITIES: Trace edema. CARDIOVASCULAR MEDICATIONS: Reviewed. Lovenox 100 mg subcutaneous q.12 hours and Levophed currently off, been used as needed p.r.n. STUDIES: Creatinine 0.6. White blood cells 14, hemoglobin 7.5, and platelets 504. AST 21, ALT 17, and alkaline phosphatase 68. ASSESSMENT AND PLAN: A 69-year-old woman presents with: 1. Anemia. 2. Community-acquired COVID-19 pneumonia. 3. Hypertension. 4. Diabetes. 5. Septic shock, now status post pressor. 6. Acute respiratory failure, on ventilatory support. RECOMMEND: 1. Levophed as needed for MAP 65 to 75. 2. Continues to have issues with oxygenation that have now being stabilized with ventilator, adjustment by Pulmonary Critical Care. Monitor H and H. overall guarded prognosis. Continue Lovenox for upper extremity venous thrombosis. Balwinder Mack MD [facility]/MODL /[id number]
[2020-02-06] MEDS: NOREPINEPHRINE INJ 4MG/4ML 8 MG in DEXTROSE 5% 250ML 250 ML IV SCH (11:45)
[2020-02-06 14:18] LABS: ABG HCO3 33 mmol/L (22-26); ABG PCO2 51 mmHg (35-45); ABG PH 7.42 (7.35-7.45); ABG PO2 81 mmHg (80-105)
[2020-02-06] MEDS: PROPOFOL IV EMULSION 50 ML IV PRN ×3 (14:38→22:40)
--- NOTE | 2020-02-06 14:58 | Progress Note ---
DATE: SUBJECTIVE: The patient was sedated last night. The staff attempted to prone the patient, but she had high airway pressures and she had to be placed back in the supine position. The patient is now on Versed at 6 with fentanyl at 150 mcg and propofol at 10. The patient's ventilator settings set at PRVC with a rate of 24 and a tidal volume of 400. Her PEEP is set at 12 and her FiO2 is set at 60%. PHYSICAL EXAMINATION: HEENT: Shows no facial swelling or erythema. There is an oral endotracheal tube in place. There is a right IJ line. The site looks clean. CARDIAC: Reveals regular rate and rhythm with normal S1 and S2. LUNGS: Auscultation of lungs reveals crackles at the bases. There is no wheezing. ABDOMEN: Soft and nontender. There is no rebound or guarding. EXTREMITIES: Shows no leg edema or calf tenderness. There is no cyanosis or clubbing. SKIN: Shows no rashes. NEUROLOGICAL: Shows no focal abnormalities. LABORATORY DATA: White blood cell count is 14.9 and the hemoglobin is 7.5. The platelet count is 504. The BUN to creatinine ratio is 24 to 0.6, and the other electrolytes are within normal limits. The albumin is 2.1. RADIOGRAPHIC DATA: Chest x-ray shows bilateral infiltrates. IMPRESSION: 1. Acute respiratory failure. 2. COVID-19 and viral pneumonia. 3. Right upper extremity deep vein thrombosis. 4. Diabetes. PLAN: 1. Stop rocuronium and continue Versed and fentanyl. 2. Decrease FiO2 as tolerated. 3. Repeat ABG. 4. Continue Lovenox. 5. Continue enteral feedings. 6. Continue dexamethasone. 7. Case discussed with nursing staff, Respiratory, family, Internal Medicine, and Cardiology. Greater than 35 minutes in direct critical care time. Richard Thompson MD [facility]/MODL /[id number]
--- NOTE | 2020-02-06 15:59 | Progress Note ---
DATE: 02/06/2020 Nephrology Progress Note SUBJECTIVE: The patient is still intubated. She is on 100% oxygen. She is not on any pressors. Blood pressure is stable. OBJECTIVE: VITAL SIGNS: Temperature is 97.9, pulse 79, respiratory rate 24, blood pressure is 106/54, pulse ox 100% on mechanical ventilation. GENERAL: Intubated and sedated. PULMONARY: Intubated and sedated. CARDIOVASCULAR: Positive S1 and S2. No murmurs, rubs, or gallops appreciated. ABDOMEN: Soft, nondistended, and nontender to palpation. Bowel sounds present. MUSCULOSKELETAL: Unable to assess. NEUROLOGIC: Unable to assess. Intubated on sedation. SKIN: Intact. Warm to touch. Good cap refill. EXTREMITIES: She does have some trace edema appreciated. LABORATORY DATA: Labs show white count 14.9, hemoglobin 7.5, hematocrit 25, platelets of 504. Chemistry; sodium 138, potassium 4.7, chloride 101, bicarb 29, anion gap of 12, BUN 24, creatinine is 0.6, glucose 174, calcium is 7.8. MICROBIOLOGY: None. All cultures were negative. IMAGING STUDIES: Chest x-ray this morning shows no interval change. Shows bilateral diffuse interstitial airspace opacity consistent with multifocal pneumonia. ASSESSMENT: 1. Nonoliguric secondary to blood pressure fluctuation, now improved now good urine output, good electrolyte now on electrolyte replacement. 2. Respiratory failure, intubated and sedated secondary to coronavirus disease - 19 pneumonia. 3. Bilateral upper extremity deep venous thrombosis. PLAN: At this time, continue full-dose Lovenox. Replace electrolytes accordingly. Get a.m. labs. Urine output is good. Continue follow with primary. MD MUSA Sainz/BERNARDOL /[id number]
--- NOTE | 2020-02-06 16:03 | NUR ---
Nutrition Intervention Note RD Recommendation(s) for Physician: -Recommend modifying tube feed formula to Vital High Protein @ goal rate of 55 mL/hr to better meet estimated nutritional needs (provides 1320 kcal, 116 g protein, and 1104 mL water) -Fluid management per MD -Propofol provides 264 lipid kcal/day Plan of Care: RD following, monitoring for tolerance and adequacy, tube feed recommendation Nutrition reason for involvement: follow up RD Assessment 02/05: Follow up. Chart reviewed. Pt remains intubated and sedated. Pt is receiving propofol at 10 mL/hr per RN (provides 264 kcal). Pt continues on low rate tube feeding at 20 mL/hr. Recommendations provided. Will continue to monitor 01/31: Follow up. Pt remains intubated and sedated on Propofol. No pressors currently. Pt continues on low rate TF of Glucerna 1.2, not meeting needs. Current TF rec's remain appropriate, rec's placed in chart for MD. Chart reviewed. Will continue to monitor. 01/26: Follow up. Pt remains intubated and sedated. Pt is tolerating tube feedings. Current RD recommendations remain appropriate. Informed RN of recommendation. Will continue to monitor. (01/25/20) Pt is a 69 year old female admitted with abdominal pain and hypoxia. Pt is COVID-19+ and is currently intubated. Tube feedings were started. There are no previous weights in chart. Nutrition history is limited at this time. Recommendations provided and will continue to monitor. Principal Problems/Diagnoses: abdominal pain and hypoxia PMH: HTN, diabetes I/O: 2330/2500 GI: soft, non-tender abdomen, last recorded BM 02/05 Skin: sacrum stage II PU Labs: 02/05: Na 138, K 4.7, BUN 24, Cr 0.60, Glu 174 01/31: Na 142, K 4.1, BUN 30, Cr 0.62, Gluc 136, POC Gluc 133-235 01/26: Na 140, K 3.7, BUN 19, Cr 0.69, Glu 93, Ca 7.9, AST 44 (01/24) Na 139, K 2.8, BUN 15, Glu 193, Ca 7.8, AST 38, HgbA1c 8.9% (01/22) Meds: vitamin C, KCl, zinc sulfate, pepcid, lovenox, fentanyl, rocuronium, propofol, insulin, norepinephrine, zofran Ht: 64 inches Wt: 222 lbs (02/05) 165 lbs (01/21) Suspect possible weight error BMI: 28.3 kg/m2 (using weight of 165 lbs) IBW: 120 lbs Malnutrition Evaluation (01/25/20) Unable to assess. Will re-evaluate at follow-up as appropriate. Nutrition Prescription (Diet Order): Glucerna 1.2 @ 30 mL/hr (provides 864 kcal and 43 g protein) currently running at 20 mL/hr Estimated Nutritional Needs: 3171-9292 calories/day (18-20 kcal/kg CBW) Weight used: 165 lbs 90-150 g protein/day (1.2-2 g pro/kg CBW) Weight used: 165 lbs Diet Adequacy: Not meeting calorie needs, Not meeting protein needs Tolerance: Tolerating TF Diet Education Needs Assessment: Diet education not indicated, patient on temporary/transition diet. Nutrition Care Level: moderate Nutrition Diagnosis: Inadequate oral intake related to acute respiratory failure/mechanical ventilation as evidenced by need for enteral nutrition. Goal: Patient will meet 75-100% of estimated needs by follow up Progress: not progressing with current tube feed order Interventions: -Composition, Rate, Route, Recommended Modifications, Collaboration with other providers Monitoring/Evaluation: -Total energy intake, Total protein intake, Formula/Solution, Weight change Signed: Sindhu Hazel RD, LD
[2020-02-06] MEDS: BALSAM PERU/CASTOR OIL 60 GM OINT...G. TP SCH (16:14)
--- NOTE | 2020-02-06 17:18 | Progress Note ---
DATE: SUBJECTIVE: Ms. Durham remains in intensive care unit. The patient who is still intubated about the same, sedated. PHYSICAL EXAMINATION: VITAL SIGNS: Intubated. Vitals stable. Afebrile. HEENT: She is not icteric. NECK: Supple. CHEST: Few crackles. COR: S1-S2. No murmur. ABDOMEN: Soft. LABORATORY DATA: Reviewed. Chart reviewed. IMPRESSION AND PLAN: Coronavirus disease-19 respiratory failure, superimposed bacterial community infection, hypertension, diabetes mellitus, and obesity. Continue vasopressors. Continue supportive care. Continue dexamethasone and antibiotic as ordered. Prognosis is guarded. We will follow. MD ARLYN Lea/MODL /[id number]
--- NOTE | 2020-02-06 20:14 | NUR ---
Read ABG results to Dr. Thompson. No new orders received.
[2020-02-06 20:30] LABS: ABG HCO3 33 mmol/L (22-26); ABG PCO2 59 mmHg (35-45); ABG PH 7.36 (7.35-7.45); ABG PO2 71 mmHg (80-105)
[2020-02-07] VITALS (26 sets, daily range): BP systolic 93–178; BP diastolic 41–70
[2020-02-07] MEDS: PROPOFOL IV EMULSION 50 ML IV PRN ×6 (04:00→21:40)
[2020-02-07] MEDS: BISACODYL 10 MG SUPP PR PRN (04:00)
[2020-02-07] MEDS: ROCURONIUM BROMIDE 250 MG in SODIUM CHLORIDE 0.9% 250ML 225 ML IV SCH ×3 (04:00→23:49)
[2020-02-07] MEDS: MIDAZOLAM HCL 5MG/ML 10ML VIAL 100 ML IV PRN ×2 (04:00→21:35)
[2020-02-07 04:57] LABS: BASOPHILS % 0.2 % (0.0-1.0); EOSINOPHILS # (AUTO) 0.3 (0.0-0.4); EOSINOPHILS % 3.2 % (0.0-6.0); HEMOGLOBIN 8.9 g/dL (12.0-16.0); LYMPHOCYTES # (AUTO) 1.2 (1.0-3.2); LYMPHOCYTES % 12.2 % (18.0-39.1); MEAN CORPUSCULAR HEMOGLOBIN 29.1 pg (28-32); MEAN CORPUSCULAR HGB CONC 29.7 g/dL (31-35); MONOCYTES # (AUTO) 0.4 (0.2-0.8); MONOCYTES % 4.3 % (4.4-11.3); NEUTROPHILS # (AUTO) 7.6 (2.1-6.9); NEUTROPHILS % 78.8 % (38.7-80.0); PLATELET COUNT 566 x10e3/uL (140-360); RED BLOOD COUNT 3.06 x10e6/uL (3.6-5.1); RED CELL DISTRIBUTION WIDTH 15.4 % (11.7-14.4)
[2020-02-07 05:21] LABS: ANION GAP 10.1 mmol/L (8-16); BLOOD UREA NITROGEN 21 mg/dL (7-26); BUN/CREATININE RATIO 38 (6-25); CALCIUM 8.1 mg/dL (8.4-10.2); CARBON DIOXIDE 29 mmol/L (22-29); CHLORIDE 103 mmol/L (98-107); CREATININE, SERUM 0.55 mg/dL (0.57-1.11); EST GLOMERULAR FILTRATION RATE > 60 ML/MIN (60-); GLUCOSE 136 mg/dL (74-118); POTASSIUM 4.1 mmol/L (3.5-5.1); SODIUM 138 mmol/L (136-145)
[2020-02-07] MEDS: ENOXAPARIN INJ 80 MG/0.8 ML SYR SC SCH ×2 (05:49→17:36)
[2020-02-07] MEDS: FENTANYL 2000MCG/NS 250 250 ML IV PRN ×2 (06:15→19:45)
[2020-02-07] MEDS: FAMOTIDINE 20 MG/2 ML VIAL IV SCH ×2 (08:27→17:36)
[2020-02-07] MEDS: ZINC SULFATE 220 MG CAP PO SCH (08:28)
[2020-02-07] MEDS: BALSAM PERU/CASTOR OIL 60 GM OINT...G. TP SCH (08:28)
[2020-02-07] MEDS: ASCORBIC ACID 500 MG TAB PO SCH ×2 (08:28→17:36)
[2020-02-07] MEDS: POTASSIUM CHLORIDE 20MEQ/15ML UDC NG SCH (08:28)
[2020-02-07] MEDS: EYE LUBRICANT OPTH OINT 3.5GM TUBE OP SCH (08:28)
--- NOTE | 2020-02-07 08:32 | Diagnostic Imaging Report ---
EXAM: CHEST SINGLE (PORTABLE) DATE: 02/07/2020 6:10 AM INDICATION: Respiratory failure COMPARISON: 02/06/2020 IMPRESSION: Endotracheal tube and right IJ central venous catheter identified in stable position. Enteric tube noted coursing below the diaphragm. Again identified are grossly stable appearing patchy airspace opacities throughout the lungs bilaterally with a perihilar and lower lung zone predominance. There is no evidence for pneumothorax or significant volume pleural effusion. The cardiomediastinal silhouette is stable in appearance. No acute osseous abnormalities identified. Signed by: Dr. Colten Perry MD on 02/07/2020 8:29 AM
[2020-02-07 11:24] LABS: ABG HCO3 34 mmol/L (22-26); ABG PCO2 61 mmHg (35-45); ABG PH 7.35 (7.35-7.45); ABG PO2 87 mmHg (80-105)
[2020-02-07] MEDS: NOREPINEPHRINE INJ 4MG/4ML 8 MG in DEXTROSE 5% 250ML 250 ML IV SCH (11:45)
--- NOTE | 2020-02-07 11:49 | Progress Note ---
DATE: SUBJECTIVE: The patient is seen and evaluated. Discussed with the nurse. The patient is orally intubated, sedated with fentanyl, propofol, and versed. The patient is not on any pressor, saturating at 96%. The patient is on PRVC of 400 with respiration rate of 24 with a PEEP of 14, FiO2 of 75%. The patient desats easily with the movement. REVIEW OF SYSTEMS: Unable to obtain review of systems. PHYSICAL EXAMINATION: VITAL SIGNS: Temperature 98.2, pulse 103, respiration 24, and blood pressure 146/59. GENERAL: Intubated, comfortably in bed. CV: S1 and S2. CHEST: Equal expansion. Decreased breath sounds. ABDOMEN: Soft. HEENT: Moist. No pallor. MEDICATIONS: Reviewed and from ID point of view, the patient is on zinc sulfate. LABORATORY STUDIES: White count of 9.59, improved from 14.92, hemoglobin 8.9, and platelet 566. Sodium 138, potassium 4.1, and creatinine 0.55. Serology; coronavirus PCR positive on 01/21/2020. MICROBIOLOGY: Sputum culture showed usual respiratory damaso on 02/04/2020. IMAGING: Today chest x-ray showed stable-appearing patchy airspace opacities throughout the lungs bilaterally with perihilar and lower lung zone predominance. No evidence of pneumothorax or significant volume pleural effusion. ASSESSMENT AND PLAN: 1. Coronavirus disease-19. 2. Respiratory failure. 3. Superimposed bacterial infection. 4. Hypertension. 5. Diabetes. 6. Obesity. 7. Medication list reviewed. The patient is status post dexamethasone from 01/26 to 02/05, status post remdesivir from 01/23 to 01/26. Continue with zinc sulfate. The patient remains sedated, off pressors. Continue to monitor the patient clinically and follow with the labs. Dictated by Sean Hernandez PA-C (Al) Raul Fernandez MD /MODL /[id number]
[2020-02-07] MEDS ORDERED: ALBUMIN 25% 25GM 100ML 0.25 GM/ML BTL IV ONE ×4 (12:15→21:45)
[2020-02-07] MEDS ORDERED: ALBUMIN 25% 25GM 100ML 100 ML IV ONE ×2 (12:45→17:35)
--- NOTE | 2020-02-07 12:54 | Progress Note ---
DATE: Pulmonary Critical Care progress Note SUBJECTIVE: The patient is still on rocuronium along with Versed at 6 mg and fentanyl. She is also on a low dose of propofol. She is on a PRVC mode of ventilation, set at a rate of 24. She is breathing with the ventilator. Her tidal volume is 400. Her PEEP is set at 12 and FiO2 is 70%. She has some tachycardia. PHYSICAL EXAMINATION: VITAL SIGNS: The blood pressure is 146/60 and the saturation is 96%. Heart rate is 86. HEENT: No facial swelling or erythema. CARDIAC: Tachycardia with normal S1, S2. There are no murmurs or rubs. LUNGS: Auscultation of lungs reveals rhonchorous breath sounds bilaterally. There is no wheezing. ABDOMEN: Soft, nontender. There is no rebound or guarding. EXTREMITIES: No leg edema or calf tenderness. LABORATORY DATA: The BUN to creatinine ratio is 21 to 0.55 and glucose is 136. The white blood cell count is 9.6 and hemoglobin is 9. The platelet count is 566. Blood gas is 7.35, 61, 87, and 34. RADIOGRAPHIC DATA: Chest x-ray shows continued bilateral infiltrates. IMPRESSION: 1. Acute respiratory failure. 2. Right upper extremity deep vein thrombosis. 3. Coronavirus disease-19 and viral pneumonia. 4. Diabetes. 5. Tachycardia. PLAN: 1. Try and wean the patient off vecuronium. 2. Continue PRVC mode of ventilation. 3. Increase minute ventilation. 4. Albumin. 5. Continue Lovenox. 6. Monitor BUN, creatinine, and blood counts. Case discussed with nursing, Respiratory, Cardiology, administration, and family. Greater than 35 minutes in direct critical care time. Richard Thompson MD [facility]/BERNARDOL /[id number]
--- NOTE | 2020-02-07 14:54 | Progress Note ---
DATE: 02/07/2020 Nephrology Progress Note SUBJECTIVE: The patient is still intubated. . OBJECTIVE: VITAL SIGNS: Temperature 98.2, pulse 86, respiratory rate is 20, blood pressure 146/59, pulse ox 96% on mechanical ventilator. GENERAL: Intubated and sedated. PULMONARY: Intubated and sedated. CARDIOVASCULAR: Positive S1 and S2. No murmurs, rubs, or gallops appreciated. ABDOMEN: Soft, nondistended, and nontender to palpation. MUSCULOSKELETAL: Unable to assess. NEUROLOGIC: Unable to assess. SKIN: Intact. Warm to touch. EXTREMITIES: Shows some trace edema. LABORATORY DATA: CBC stable. Chemistry; sodium 130, potassium 4.1, chloride 110, bicarb 29, anion gap of 10, BUN patchy air space opacity. IMPRESSION: 1. Nonoliguric secondary to blood pressure fluctuation, now improved. 2. Respiratory distress secondary to coronavirus pneumonia. 3. Bilateral upper extremity deep venous thrombosis. PLAN: Electrolytes are stable. urine output is good. Continue following with primary team. MD MUSA Sainz/MODL /[id number]
[2020-02-07] MEDS ORDERED: FUROSEMIDE INJ 10 MG/ML 4 ML VIAL IV ONE (17:40)
--- NOTE | 2020-02-07 19:00 | NUR ---
Notified Tracey FRASER that pumps were beeping in the pts room. Then report received from Tracey Durán RN. Pharmacy called at this time to request Gregorio infusion bag as the current bag as approx 30cc left.
[2020-02-07] MEDS ORDERED: FENTANYL 2000MCG/NS 250 250 ML ONE (19:21)
[2020-02-07] MEDS ORDERED: ROCURONIUM BROMIDE 10 MG/ML 5ML VIAL IV ONE (20:45)
[2020-02-07] MEDS ORDERED: ROCURONIUM BROMIDE 1 ML IV ONE (20:46)
[2020-02-07] MEDS ORDERED: ALBUMIN 25% 12.5GM 50ML 100 ML IV ONE ×2 (21:32→22:00)
[2020-02-07 21:37] LABS: ABG HCO3 34 mmol/L (22-26); ABG PCO2 60 mmHg (35-45); ABG PH 7.36 (7.35-7.45); ABG PO2 61 mmHg (80-105)
[2020-02-07] MEDS ORDERED: SODIUM CHLORIDE 0.9% 250ML 250 ML ONE (22:30)
--- NOTE | 2020-02-07 22:30 | NUR ---
Dr. Antione Thompson has been present on the unit assessing the pt and giving orders tonight and is present now. Please refer to enrobing machine corder for further information.
--- NOTE | 2020-02-07 22:41 | Progress Note ---
DATE: 02/07/2020 Cardiology Progress Note SUBJECTIVE: Intubated. OBJECTIVE: VITAL SIGNS: Temperature 99.2, heart rate 112, blood pressure 132/54, respiratory rate 26, O2 saturation 95% on telemetry, sinus rhythm. GENERAL: Intubated and sedated. NECK: No JVD. CHEST: Decreased breath sounds. CARDIOVASCULAR: Regular rate and rhythm. Normal S1 and S2. ABDOMEN: Soft. Bowel sounds positive. EXTREMITIES: Trace edema. CARDIOVASCULAR MEDICATIONS: Reviewed. Lovenox 100 mg subcu q.12 hours, hydralazine 10 mg q.4 hours. LABORATORY DATA: Studies reviewed. Sodium 138, potassium 4.1, chloride 102, bicarbonate 29, BUN 21, creatinine 0.5, glucose 136. White blood cells 9.5, hemoglobin 8.9, platelets 566. AST 21, ALT 17, alkaline phosphatase 16. ASSESSMENT: 1. A 69-year-old woman with coronavirus disease-19 infection. Community acquired pneumonia with acute respiratory failure. 2. Labile hemodynamics, status post shock. 3. Upper extremity deep vein thrombosis. RECOMMEND: Continue lovenox. Continue rest of CV meds Balwinder Mack MD [facility]/MODL /[id number]
[2020-02-07] MEDS ORDERED: SODIUM CHLORIDE 0.9% 250ML 250 ML IV ONE (22:45)
--- NOTE | 2020-02-07 23:38 | Diagnostic Imaging Report ---
EXAMINATION: CHEST SINGLE (PORTABLE) INDICATION: ^tachypnea ^[id number] ^2300 COMPARISON: 02/07/2020 FINDINGS: AP view TUBES and LINES: Unchanged endotracheal tube and right IJ central venous catheter. Unchanged partially visualized nasogastric tube. LUNGS: Unchanged patchy airspace opacities throughout both lungs, again in a predominantly perihilar and lower lung zone distribution. PLEURA: No pleural effusion or pneumothorax. HEART AND MEDIASTINUM: The cardiomediastinal silhouette is unchanged. BONES AND SOFT TISSUES: No acute osseous lesion. Soft tissues are unremarkable. UPPER ABDOMEN: No free air under the diaphragm. IMPRESSION: No interval changes when compared to the previous examination. Stable diffuse pulmonary airspace disease. Signed by: William Oliveira MD on 02/07/2020 11:35 PM
[2020-02-08] VITALS (27 sets, daily range): BP systolic 86–204; BP diastolic 7–83
[2020-02-08] MEDS: ROCURONIUM BROMIDE 250 MG in SODIUM CHLORIDE 0.9% 250ML 225 ML IV SCH ×2 (05:18→12:16)
[2020-02-08] MEDS: PROPOFOL IV EMULSION 50 ML IV PRN ×4 (05:19→19:33)
[2020-02-08] MEDS ORDERED: ENOXAPARIN SODIUM INJ 100 MG/ML SYR SC ONE (05:27)
[2020-02-08] MEDS: ENOXAPARIN INJ 80 MG/0.8 ML SYR SC SCH ×2 (05:32→17:04)
[2020-02-08] MEDS: MIDAZOLAM HCL 5MG/ML 10ML VIAL 100 ML IV PRN ×3 (05:40→19:35)
[2020-02-08 05:44] LABS: BASOPHILS % 0.1 % (0.0-1.0); EOSINOPHILS # (AUTO) 0.3 (0.0-0.4); EOSINOPHILS % 3.6 % (0.0-6.0); HEMATOCRIT 27.8 % (34.2-44.1); HEMOGLOBIN 8.2 g/dL (12.0-16.0); LYMPHOCYTES % 11.1 % (18.0-39.1); MEAN CORPUSCULAR HEMOGLOBIN 28.2 pg (28-32); MEAN CORPUSCULAR HGB CONC 29.5 g/dL (31-35); MEAN CORPUSCULAR VOLUME 95.5 fL (81-99); MONOCYTES # (AUTO) 0.5 (0.2-0.8); MONOCYTES % 5.7 % (4.4-11.3); NEUTROPHILS # (AUTO) 6.8 (2.1-6.9); NEUTROPHILS % 77.5 % (38.7-80.0); PLATELET COUNT 549 x10e3/uL (140-360); RED BLOOD COUNT 2.91 x10e6/uL (3.6-5.1); RED CELL DISTRIBUTION WIDTH 15.6 % (11.7-14.4)
[2020-02-08 05:47] LABS: ALANINE AMINOTRANSFERASE 13 IU/L (0-55); ALBUMIN 2.8 g/dL (3.5-5.0); ALBUMIN/GLOBULIN RATIO 0.8 (0.8-2.0); ALKALINE PHOSPHATASE 68 IU/L (40-150); ANION GAP 10.5 mmol/L (8-16); BLOOD UREA NITROGEN 15 mg/dL (7-26); BUN/CREATININE RATIO 27 (6-25); CALCIUM 8.3 mg/dL (8.4-10.2); CARBON DIOXIDE 31 mmol/L (22-29); CHLORIDE 102 mmol/L (98-107); CREATININE, SERUM 0.56 mg/dL (0.57-1.11); EST GLOMERULAR FILTRATION RATE > 60 ML/MIN (60-); GLUCOSE 90 mg/dL (74-118); POTASSIUM 3.5 mmol/L (3.5-5.1); SODIUM 140 mmol/L (136-145)
[2020-02-08] MEDS: FENTANYL 2000MCG/NS 250 250 ML IV PRN ×2 (06:50→19:35)
--- NOTE | 2020-02-08 08:27 | Diagnostic Imaging Report ---
EXAMINATION: CHEST SINGLE (PORTABLE) INDICATION: ^PNA ^[id number] ^0615 ^Y. COMPARISON: 02/07/2020 FINDINGS: AP view TUBES and LINES: Endotracheal tube, right IJ central venous catheter and enteric tube are unchanged. LUNGS: Redemonstration of multifocal consolidative opacities in the bilateral lungs with interval increased left upper lobe. Mediastinal consolidation. PLEURA: No pleural effusion or pneumothorax. HEART AND MEDIASTINUM: The cardiomediastinal silhouette is stable. BONES AND SOFT TISSUES: No acute osseous lesion. Soft tissues are unremarkable. UPPER ABDOMEN: No free air under the diaphragm. IMPRESSION: Multifocal consolidative opacities with increased consolidation in the left upper lobe. Stable support apparatus. Signed by: Sal Gamboa MD on 02/08/2020 8:23 AM
[2020-02-08] MEDS: FAMOTIDINE 20 MG/2 ML VIAL IV SCH ×2 (08:29→17:03)
[2020-02-08] MEDS: EYE LUBRICANT OPTH OINT 3.5GM TUBE OP SCH (08:30)
[2020-02-08] MEDS: BALSAM PERU/CASTOR OIL 60 GM OINT...G. TP SCH (08:30)
[2020-02-08] MEDS: ZINC SULFATE 220 MG CAP PO SCH (08:30)
[2020-02-08] MEDS: ASCORBIC ACID 500 MG TAB PO SCH ×2 (08:30→17:04)
[2020-02-08] MEDS: POTASSIUM CHLORIDE 20MEQ/15ML UDC NG SCH (08:30)
--- NOTE | 2020-02-08 09:57 | Consultation ---
DATE OF CONSULTATION: 02/08/2020 CHIEF COMPLAINT: Respiratory failure. HISTORY OF PRESENT ILLNESS: The patient is a 69-year-old female, admitted for fever, shortness of breath, and nausea and was tested positive for COVID-19. The patient was intubated and has been on the ventilator for more than two weeks with no change in status. PAST MEDICAL HISTORY: Positive for hypertension, diabetes, and hyperlipidemia. ALLERGIES: THE PATIENT HAS NO DRUG ALLERGIES. SOCIAL HISTORY: No history of smoking or alcohol abuse. REVIEW OF SYSTEMS: Unobtainable. PHYSICAL EXAMINATION: VITAL SIGNS: Stable. Temperature 99.7, blood pressure 197/80 with a pulse of 113. GENERAL: She is intubated, sedated. LUNGS: Bilateral rhonchi. HEART: Tachycardic. No murmurs. ABDOMEN: Soft. EXTREMITIES: Mild edema distally. LABORATORY DATA: White cell count is 8.7, hemoglobin 8.2, and platelet count is 549. Creatinine is 0.56. Chest x-ray shows multifocal pneumonia. ASSESSMENT: Respiratory failure, secondary to coronavirus disease-19 pneumonia, on prolonged ventilator therapy. PLAN: The patient may benefit from tracheostomy tube placement. We will repeat COVID-19 testing prior to scheduling. Ivan Contreras MD [facility]/MODL /[id number]
[2020-02-08] MEDS: NOREPINEPHRINE INJ 4MG/4ML 8 MG in DEXTROSE 5% 250ML 250 ML IV SCH (11:45)
[2020-02-08 13:33] LABS: ABG HCO3 31 mmol/L (22-26); ABG PCO2 45 mmHg (35-45); ABG PH 7.44 (7.35-7.45); ABG PO2 66 mmHg (80-105)
--- NOTE | 2020-02-08 14:04 | Progress Note ---
DATE: Pulmonary Critical Care progress note SUBJECTIVE: The patient has continued to require paralysis with rocuronium as well as sedation with Versed and fentanyl. She remains on a PRVC mode of ventilation at a rate of 28 with a tidal volume of 400 and FiO2 of 75%. Her PEEP is set at 14. Her peak airway pressure is 32 and her mean airway pressure is 24. PHYSICAL EXAMINATION: VITAL SIGNS: Blood pressure is 138/62, saturation is 94% on the above settings. The heart rate is 115. T-max 99.7. HEENT: No facial swelling or erythema. CARDIAC: Regular rate and rhythm with normal S1, S2. LUNGS: Auscultation of lungs reveals rhonchorous breath sounds bilaterally. There is no wheezing. ABDOMEN: Soft, nontender. There is no rebound or guarding. EXTREMITIES: No leg edema or calf tenderness. There is no cyanosis or clubbing. SKIN: No rashes. NEUROLOGICAL: The patient to be sedated and paralyzed. LABORATORY DATA: White blood cell count is 8.7 and hemoglobin is 8.2. The platelet count is 549. The BUN to creatinine ratio is 15 to 0.56. Other electrolytes are within normal limits. The albumin is 2.8. RADIOGRAPHIC DATA: Chest x-ray shows bilateral infiltrates with some worsening consolidation in the left upper lobe. IMPRESSION: 1. Acute respiratory failure. 2. Right upper extremity deep vein thrombosis. 3. coronavirus disease-19 and viral pneumonia. 4. Diabetes. 5. Anemia, unspecified. PLAN: 1. Continue current ventilator settings and repeat ABG later today. 2. Surgical evaluation for possible tracheostomy. 3. CVP monitoring. 4. Continue Lovenox. 5. Continue Decadron. 6. Enteral feedings. 7. The patient has completed antibiotics. MD PASTORA Easton/MODL /[id number]
--- NOTE | 2020-02-08 14:24 | Progress Note ---
DATE: SUBJECTIVE: The patient is seen and evaluated. Available labs and notes reviewed. Discussed with Dr. Fernandez in details. Discussed with the nurse. Discussed with the attending team. REVIEW OF SYSTEMS: Unable to obtain review of systems. The patient is orally intubated. MEDICATIONS: Medication list is reviewed. The patient remains on rocuronium, propofol, fentanyl, versed, insulin at 2 units, and status post dexamethasone. LABORATORY STUDIES: White count of 8.71, hemoglobin 8.2, and platelet 549. Sodium 140, potassium 3.5, and creatinine 0.56. Coronavirus PCR detected on 01/20. MICROBIOLOGY: No new microbiology studies available. PHYSICAL EXAMINATION: VITAL SIGNS: Temperature is 99.8 with a T-max of 100.1, pulse is 112, orally intubated with blood pressure of 97/51. GENERAL: Oral intubation with AC at 28, tidal volume 400, PEEP of 14 at 75%. CV: S1-S2. CHEST: Equal expansion. Decreased breath sounds. ABDOMEN: Soft. Positive bowel sounds. HEENT: Moist. No pallor. EXTREMITIES: No cyanosis or clubbing. ASSESSMENT AND PLAN: 1. Coronavirus disease-19 positive as mentioned above. 2. Respiratory failure. 3. Superimposed bacterial infection. 4. Hypertension. 5. Fluctuating blood pressure. 6. Diabetes. The patient completed dexamethasone. Continue with monitoring the patient. Follow with the labs and cultures. General Surgery consulted for tracheostomy, possibly anemia per others. Electrolyte abnormalities per others. Overall guarded prognosis. Discussed with Dr. Fernandez. Please refer to the chart for more information. Dictated by Sean Hernandez PA-C (Al) Raul Fernandez MD /MODL /[id number]
--- NOTE | 2020-02-08 16:09 | Progress Note ---
DATE: 02/08/2020 Nephrology Progress Note SUBJECTIVE: The patient is still intubated and sedated. Still requires significant amount of oxygen. PHYSICAL EXAMINATION: VITAL SIGNS: Temperature is 99.8, pulse is 103, respiratory rate is 28, and blood pressure is 92/51. Actually during my eval, her blood pressure is actually systolic in the 150s and now was with the art line. She is on FiO2 of 75%. GENERAL: Intubated and sedated. PULMONARY: Intubated and sedated. CARDIOVASCULAR: Positive S1, S2. No murmurs, rubs, or gallops. ABDOMEN: Soft, nondistended, and nontender to palpation. MUSCULOSKELETAL: Unable to assess. NEUROLOGICAL: She is currently on sedation. SKIN: Intact, warm to touch. Good cap refill. EXTREMITIES: Shows some evidence of trace to 1+ edema. LABORATORY DATA: Show white count 8.7, hemoglobin 8.2, hematocrit 27.8, and platelets of 549. Chemistry; sodium 140, potassium 3.5, chloride 102, bicarb 21, anion gap of 10, BUN is 15, creatinine 0.56, calcium is 8.3. MICROBIOLOGY: None. IMAGING STUDIES: Chest x-ray, multifocal consolidative opacities with increased consolidation in the left upper lobe. IMPRESSION: 1. Nonoliguric, secondary in the blood pressure fluctuation, now improved. 2. Respiratory distress, secondary to Coronavirus pneumonia. 3. Bilateral upper extremity deep venous thrombosis. PLAN: At this time, her electrolytes are stable. Good urine output. General Surgery was consulted for tracheostomy placement. Repeat Coronavirus in progress. MD MUSA Sainz/MODL /[id number]
[2020-02-08 20:35] LABS: ABG PCO2 53 mmHg (35-45); ABG PH 7.42 (7.35-7.45); ABG PO2 61 mmHg (80-105)
[2020-02-08 20:36] LABS: ABG HCO3 34 mmol/L (22-26)
--- NOTE | 2020-02-08 21:10 | Progress Note ---
DATE: 02/08/2020 Cardiology Progress Note SUBJECTIVE: Intubated and sedated. OBJECTIVE: VITAL SIGNS: Temperature 99.7, heart rate 102, blood pressure 111/54, respiratory rate 28, O2 saturation 95%, BMI 38. GENERAL: Intubated and sedated. CHEST: With rales and decreased breath sounds. CARDIOVASCULAR: Regular rate and rhythm. Normal S1, S2. ABDOMEN: Soft. EXTREMITIES: With edema to upper more than lower extremities. CARDIOVASCULAR MEDICATIONS: Reviewed. Lovenox 100 mg subcu q.12 hours. LABORAOTRY DATA: Studies reviewed. Sodium 140, potassium 3.5, chloride 102, bicarbonate 31, BUN 15, creatinine 0.5, glucose 90, white blood cells 8.7, hemoglobin 8.2, platelets 549. AST 22, ALT 13, and alkaline phosphatase 50. ASSESSMENT AND PLAN: 1. A 69-year-old woman presents with acute respiratory failure in the setting of community-acquired COVID-19 infection. 2. Anemia. 3. Upper extremity deep venous thrombosis. 4. Acute respiratory failure. 5. Hypertension and diabetes. RECOMMENDATIONS: 1. Continue current cardiovascular medications. 2. Monitor H and H and for any signs of gross bleeding. Balwinder Mack MD [facility]/ELVA /[id number]
[2020-02-09] VITALS (26 sets, daily range): BP systolic 73–152; BP diastolic 33–58
[2020-02-09] MEDS: PROPOFOL IV EMULSION 50 ML IV PRN ×4 (00:18→07:32)
[2020-02-09] MEDS: ROCURONIUM BROMIDE 250 MG in SODIUM CHLORIDE 0.9% 250ML 225 ML IV SCH ×2 (03:26→22:00)
[2020-02-09] MEDS: MIDAZOLAM HCL 5MG/ML 10ML VIAL 100 ML IV PRN ×3 (03:28→23:23)
[2020-02-09] MEDS ORDERED: ENOXAPARIN SODIUM INJ 100 MG/ML SYR SC ONE (05:49)
[2020-02-09 06:16] LABS: BASOPHILS % 0.3 % (0.0-1.0); EOSINOPHILS # (AUTO) 0.5 (0.0-0.4); HEMATOCRIT 26.6 % (34.2-44.1); HEMOGLOBIN 7.9 g/dL (12.0-16.0); LYMPHOCYTES % 8.8 % (18.0-39.1); MEAN CORPUSCULAR HEMOGLOBIN 28.5 pg (28-32); MEAN CORPUSCULAR HGB CONC 29.7 g/dL (31-35); MONOCYTES # (AUTO) 0.5 (0.2-0.8); MONOCYTES % 4.8 % (4.4-11.3); NEUTROPHILS # (AUTO) 8.9 (2.1-6.9); NEUTROPHILS % 79.8 % (38.7-80.0); PLATELET COUNT 566 x10e3/uL (140-360); RED BLOOD COUNT 2.77 x10e6/uL (3.6-5.1)
[2020-02-09] MEDS: ENOXAPARIN INJ 80 MG/0.8 ML SYR SC SCH ×2 (06:32→17:02)
[2020-02-09 06:40] LABS: ALANINE AMINOTRANSFERASE 19 IU/L (0-55); ALBUMIN/GLOBULIN RATIO 0.6 (0.8-2.0); ALKALINE PHOSPHATASE 73 IU/L (40-150); ANION GAP 9.9 mmol/L (8-16); BLOOD UREA NITROGEN 15 mg/dL (7-26); BUN/CREATININE RATIO 27 (6-25); CALCIUM 8.2 mg/dL (8.4-10.2); CARBON DIOXIDE 29 mmol/L (22-29); CHLORIDE 104 mmol/L (98-107); CREATININE, SERUM 0.56 mg/dL (0.57-1.11); EST GLOMERULAR FILTRATION RATE > 60 ML/MIN (60-); GLUCOSE 79 mg/dL (74-118); POTASSIUM 3.9 mmol/L (3.5-5.1); SODIUM 139 mmol/L (136-145)
[2020-02-09] MEDS: FENTANYL 2000MCG/NS 250 250 ML IV PRN ×2 (06:54→23:37)
[2020-02-09] MEDS: ZINC SULFATE 220 MG CAP PO SCH (08:17)
[2020-02-09] MEDS: BALSAM PERU/CASTOR OIL 60 GM OINT...G. TP SCH (08:17)
[2020-02-09] MEDS: POTASSIUM CHLORIDE 20MEQ/15ML UDC NG SCH (08:17)
[2020-02-09] MEDS: FAMOTIDINE 20 MG/2 ML VIAL IV SCH ×2 (08:17→16:44)
[2020-02-09] MEDS: EYE LUBRICANT OPTH OINT 3.5GM TUBE OP SCH (08:17)
[2020-02-09] MEDS: ASCORBIC ACID 500 MG TAB PO SCH ×2 (08:17→16:44)
--- NOTE | 2020-02-09 08:30 | Diagnostic Imaging Report ---
EXAMINATION: CHEST SINGLE (PORTABLE) INDICATION: Respiratory failure COMPARISON: Multiple prior chest radiographs, most recently of 02/08/2020 FINDINGS: LINES/TUBES:Endotracheal tube terminates approximately 5 cm above the adriana. NG tube projects below the diaphragm with tip not visualized. Right IJ central venous catheter terminates in the superior vena cava. EKG leads overlie the chest. LUNGS:The lungs are moderately inflated. Unchanged bilateral predominantly peripheral hazy airspace opacities. PLEURA:No pleural effusion or pneumothorax. MEDIASTINUM:The cardiomediastinal silhouette appears unchanged in size and shape. BONES/SOFT TISSUES:No acute osseous injury. ABDOMEN:No free air under the diaphragm. IMPRESSION: No significant interval change. Signed by: Obi Manley MD on 02/09/2020 8:26 AM
[2020-02-09] MEDS: NOREPINEPHRINE INJ 4MG/4ML 8 MG in DEXTROSE 5% 250ML 250 ML IV SCH ×2 (11:45→22:00)
[2020-02-09 12:04] LABS: ABG PCO2 51 mmHg (35-45); ABG PH 7.35 (7.35-7.45); ABG PO2 67 mmHg (80-105)
[2020-02-09 12:05] LABS: ABG HCO3 28 mmol/L (22-26)
--- NOTE | 2020-02-09 15:04 | Progress Note ---
DATE: 02/09/2020 SUBJECTIVE: The patient is still intubated, still requiring a lot of oxygen. No overnight events. PHYSICAL EXAMINATION: VITAL SIGNS: Temperature is 99.9, pulse 112, respiratory rate is 28, blood pressure 103/52, and pulse ox 92%. She is on 75% FiO2 on mechanical ventilator. GENERAL: Intubated and sedated. PULMONARY: Intubated and sedated/ CARDIOVASCULAR: Positive S1, S2. No murmurs, rubs, or gallops appreciated. ABDOMEN: Soft, nondistended, nontender to palpation. Bowel sounds present. MUSCULOSKELETAL: Intubated and sedated. NEUROLOGIC: Intubated and sedated. SKIN: Intact, warm to touch. Good cap refill. EXTREMITIES: She has some edema appreciated. LABORATORY DATA: CBC reviewed, white count 11, hemoglobin of 7.9, hematocrit of 26, platelets of 566. Chemistry, sodium 139, potassium 3.9, chloride 104, bicarb 29, anion gap was 9.9, BUN 15, creatinine 0.56, and glucose is 79. Repeat coronavirus PCR is pending. MICROBIOLOGY: Nothing new. IMAGING STUDIES: Chest x-ray this morning, no significant interval change. IMPRESSION: 1. Nonoliguric secondary to blood pressure fluctuation, now resolved. 2. Respiratory distress, secondary to coronavirus pneumonia, intubated and sedated. 3. Bilateral upper extremity deep vein thrombosis. PLAN: At this time, her electrolytes are stable. Good urine output. General Surgery consulted for tracheostomy placement. Coronavirus repeat is pending. Get a.m. labs. MD MUSA Sainz/MODL /[id number]
--- NOTE | 2020-02-09 15:09 | Progress Note ---
DATE: SUBJECTIVE: The patient is seen and evaluated. Discussed with the nurse. No significant change. Remains intubated. AC 28 with 75%, PEEP of 14. REVIEW OF SYSTEMS: Unable to obtain review of systems secondary to the patient's medical condition. PHYSICAL EXAMINATION: VITAL SIGNS: Temperature 99.9, had temperature max of 100.5 at 1 o'clock this morning, pulse 113, blood pressure 103/52, and respiration 28. GENERAL: Oral intubation, O2 saturation of 90% to 94%. CV: S1 and S2. CHEST: Decreased breath sounds. Equal expansion. ABDOMEN: Soft. Positive bowel sounds. HEENT: Moist. No pallor. EXTREMITIES: No obvious acute finding. MEDICATIONS: Medication list reviewed and from ID point of view, the patient is on zinc sulfate, Lovenox, and rocuronium. LABORATORY STUDIES: White count of 11.2, hemoglobin 7.9, and platelet 566. Sodium 139, potassium 3.9, and creatinine 0.56. Serology; coronavirus PCR 01/20, detected. Recheck coronavirus PCR 02/09/2020, is pending. MICROBIOLOGY: No new microbiology studies available. IMAGING: Chest x-ray from today showed no significant interval change. ASSESSMENT AND PLAN: 1. COVID-19 positive, follow with the recheck today. 2. Respiratory failure-oral intubation. 3. Superimposed bacterial pneumonia. 4. Hypertension. 5. Diabetes. 6. Blood pressure remains fluctuating. Continue with the medications as mentioned above. Monitor the patient clinically and follow with the labs. Overall guarded prognosis. Overall as per as the vent, no significant change. Discussed with Dr. Fernandez. Please refer to chart for more information. Dictated by Sean Hernandez PA-C (Al) Raul Fernandez MD /MODL /[id number]
[2020-02-09] MEDS: PROPOFOL IV EMULSION 10MG/ML 100 ML IV PRN (16:44)
--- NOTE | 2020-02-09 19:15 | Progress Note ---
DATE: CHIEF COMPLAINT: The patient remains on mechanical ventilation. She is still on rocuronium along with Versed and fentanyl. She is receiving enteral feedings. She is on a PRVC mode of ventilation at a rate of 28 with a tidal volume of 400 and a PEEP of 14. FiO2 is set at 80%. PHYSICAL EXAMINATION: VITAL SIGNS: The patient is afebrile. The blood pressure is 99/51, saturation is 94%. HEENT: Shows no facial swelling or erythema. CARDIAC: Reveals regular rate and rhythm with normal S1 and S2. There is a right IJ line in place. LUNGS: Auscultation of lungs shows decreased breath sounds at the bases. There is no wheezing. ABDOMEN: Soft, nontender. There is no rebound or guarding. LABORATORY DATA: BUN to creatinine ratio is normal. Other electrolytes are within normal limits. CBC is significant for hemoglobin of 7.9. RADIOGRAPHIC DATA: Chest x-ray shows bilateral hazy opacities. IMPRESSION: 1. Acute respiratory failure. 2. Right upper extremity deep vein thrombosis. 3. Coronavirus disease-19 infection and viral pneumonia. 4. Diabetes. 5. Anemia. PLAN: 1. Continue current ventilator settings. 2. Repeat ABG. 3. Surgical evaluation for possible tracheostomy. 4. CVP monitoring. 5. Lovenox. 6. Enteral feedings. 7. Repeat CT of chest. Richard Thompson MD [facility]/ELVA /[id number]
[2020-02-09 22:16] LABS: ABG HCO3 300 mmol/L (22-26); ABG PCO2 57 mmHg (35-45); ABG PH 7.33 (7.35-7.45); ABG PO2 57 mmHg (80-105)
[2020-02-10] VITALS (26 sets, daily range): BP systolic 88–125; BP diastolic 37–66
--- NOTE | 2020-02-10 00:06 | Progress Note ---
DATE: 02/09/2020 Cardiology Progress Note SUBJECTIVE: Remains intubated and sedated with labile episodes of hypoxemia, tachycardia, and labile blood pressure. Currently with sats above 90, normal sinus rhythm on telemetry. OBJECTIVE: VITAL SIGNS: Temperature 99.8, heart rate 90, blood pressure 146/56, respiratory rate 28, O2 saturation 94% on vent support at high PEEP pressures and increased FiO2 requirements. BMI 38. GENERAL: Intubated, sedated. CHEST: With rales. Decreased breath sounds. CARDIOVASCULAR: Regular rate and rhythm. EXTREMITIES: With trace edema. The rest of exam deferred. CARDIOVASCULAR MEDICATIONS: Reviewed. Hydralazine 10 mg q.4 hours, off pressors, Lovenox 100 mg subcu q.12 hours. STUDIES: Reviewed. Sodium 139, creatinine 0.5. White blood cells 11, hemoglobin 7.9, platelets 566. ASSESSMENT AND PLAN: A 69-year-old woman presents with: 1. Coronavirus disease-19 infection, community-acquired pneumonia and acute respiratory failure requiring ventilatory support. 2. Hypertension and diabetes. 3. Upper extremity deep vein thrombosis. RECOMMEND: 1. Continue Lovenox for thromboembolic disease. Suspect a component of embolic phenomena possibly contributing to labile episodes of transient hypoxemia and hemodynamic instability. Alternative diagnosis includes dysautonomia. This has been discussed in coordination of care with Pulmonary Critical Care. Continue Lovenox for now. 2. Monitor H and H, hemoglobin 7.9. 3. Continue ventilatory support. Balwinder Mack MD [facility]/MODL /[id number]
[2020-02-10] MEDS ORDERED: INSULIN REGULAR, HUMAN 100 UNIT/1 ML 3ML VIAL ONE (02:49)
[2020-02-10] MEDS: ROCURONIUM BROMIDE 250 MG in SODIUM CHLORIDE 0.9% 250ML 225 ML IV SCH ×3 (04:41→17:52)
[2020-02-10] MEDS: PROPOFOL IV EMULSION 10MG/ML 100 ML IV PRN ×3 (04:42→17:53)
[2020-02-10] MEDS: INSULIN REGULAR, HUMAN 3ML VL 100 UNIT in SODIUM CHLORIDE 0.9% 100 ML IV SCH ×2 (04:44)
[2020-02-10 05:42] LABS: BASOPHILS % 0.2 % (0.0-1.0); EOSINOPHILS # (AUTO) 0.7 (0.0-0.4); EOSINOPHILS % 5.6 % (0.0-6.0); HEMATOCRIT 27.3 % (34.2-44.1); HEMOGLOBIN 7.9 g/dL (12.0-16.0); LYMPHOCYTES # (AUTO) 1.3 (1.0-3.2); LYMPHOCYTES % 10.7 % (18.0-39.1); MEAN CORPUSCULAR HGB CONC 28.9 g/dL (31-35); MEAN CORPUSCULAR VOLUME 96.8 fL (81-99); MONOCYTES # (AUTO) 0.7 (0.2-0.8); MONOCYTES % 5.5 % (4.4-11.3); NEUTROPHILS # (AUTO) 8.9 (2.1-6.9); PLATELET COUNT 569 x10e3/uL (140-360); RED BLOOD COUNT 2.82 x10e6/uL (3.6-5.1); RED CELL DISTRIBUTION WIDTH 16.1 % (11.7-14.4)
[2020-02-10] MEDS: ENOXAPARIN INJ 80 MG/0.8 ML SYR SC SCH ×2 (06:12→18:30)
[2020-02-10] MEDS: MIDAZOLAM HCL 5MG/ML 10ML VIAL 100 ML IV PRN ×3 (06:45→22:32)
[2020-02-10 06:52] LABS: ALANINE AMINOTRANSFERASE 19 IU/L (0-55); ALBUMIN 1.8 g/dL (3.5-5.0); ALBUMIN/GLOBULIN RATIO 0.5 (0.8-2.0); ALKALINE PHOSPHATASE 80 IU/L (40-150); ANION GAP 12.5 mmol/L (8-16); BLOOD UREA NITROGEN 13 mg/dL (7-26); BUN/CREATININE RATIO 24 (6-25); CALCIUM 7.9 mg/dL (8.4-10.2); CARBON DIOXIDE 26 mmol/L (22-29); CHLORIDE 105 mmol/L (98-107); CREATININE, SERUM 0.55 mg/dL (0.57-1.11); EST GLOMERULAR FILTRATION RATE > 60 ML/MIN (60-); GLUCOSE 118 mg/dL (74-118); POTASSIUM 4.5 mmol/L (3.5-5.1); SODIUM 139 mmol/L (136-145)
--- NOTE | 2020-02-10 07:49 | Diagnostic Imaging Report ---
EXAMINATION: CHEST SINGLE (PORTABLE) INDICATION: ^resp failure ^[id number] ^0520 COMPARISON: 02/09/2020 FINDINGS: AP view TUBES and LINES: Stable endotracheal tube, right IJ central venous catheter, and infradiaphragmatic NG/OG tube. LUNGS: Lungs are well inflated. Persistent diffuse bilateral patchy airspace opacities. PLEURA: No pleural effusion or pneumothorax. HEART AND MEDIASTINUM: The cardiomediastinal silhouette is unremarkable.. BONES AND SOFT TISSUES: No acute osseous lesion. Soft tissues are unremarkable. UPPER ABDOMEN: No free air under the diaphragm. IMPRESSION: Persistent diffuse bilateral multifocal pneumonia with superimposed ARDS. Signed by: Dr. Chanell Briscoe M.D. on 02/10/2020 7:46 AM
[2020-02-10] MEDS: POTASSIUM CHLORIDE 20MEQ/15ML UDC NG SCH (09:00)
[2020-02-10] MEDS: ZINC SULFATE 220 MG CAP PO SCH (10:00)
[2020-02-10] MEDS: FAMOTIDINE 20 MG/2 ML VIAL IV SCH ×2 (10:00→18:30)
[2020-02-10] MEDS: ASCORBIC ACID 500 MG TAB PO SCH ×2 (10:00→18:30)
[2020-02-10] MEDS: EYE LUBRICANT OPTH OINT 3.5GM TUBE OP SCH (10:00)
[2020-02-10] MEDS: BALSAM PERU/CASTOR OIL 60 GM OINT...G. TP SCH (10:00)
[2020-02-10] MEDS: FENTANYL 2000MCG/NS 250 250 ML IV PRN ×2 (10:15→22:31)
[2020-02-10 10:42] LABS: ABG HCO3 27 mmol/L (22-26); ABG PCO2 51 mmHg (35-45); ABG PH 7.33 (7.35-7.45); ABG PO2 75 mmHg (80-105)
[2020-02-10] MEDS ORDERED: FUROSEMIDE INJ 10 MG/ML 2 ML VIAL IV SCH (11:30)
--- NOTE | 2020-02-10 11:54 | Progress Note ---
DATE: SUBJECTIVE: The patient is still requiring mechanical ventilation. She is on 80% FiO2 with a PEEP of 14. She remains on Versed and fentanyl along with rocuronium. She had some low blood pressure and required low-dose Levophed this morning. PHYSICAL EXAMINATION: VITAL SIGNS: The patient is afebrile. Blood pressure is 111/60 and saturation is 98%. The temperature is 99.8. She is currently on a PRVC mode of ventilation at rate of 28 with a tidal volume of 400 and a PEEP of 14. FiO2 is 80%. HEENT: Shows no facial swelling or erythema. There is a right IJ line. There is an oral endotracheal tube. There is decreased swelling in the right arm. CARDIAC: Reveals regular rate and rhythm with normal S1 and S2. LUNGS: Auscultation of lungs reveals decreased breath sounds at the bases. There is no wheezing. ABDOMEN: Soft and nontender. There is no rebound or guarding. EXTREMITIES: Shows no leg edema or calf tenderness. There is no cyanosis or clubbing. SKIN: Shows no rashes. NEUROLOGICAL: Shows the patient to be sedated. LABORATORY DATA: The BUN to creatinine ratio is normal. Other electrolytes are within normal limits. The albumin is 2. White blood cell count is 12.06 and the hemoglobin is 7.9. The platelet count is 569. IMPRESSION: 1. Acute respiratory failure. 2. Viral pneumonia and COVID-19 infection. 3. Deep vein thrombosis of the upper extremity. 4. Hypertension. 5. Diabetes. PLAN: 1. The patient will go to CT scan of the chest today to try and evaluate between parenchymal scarring of the lung versus acute inflammation. 2. Continue PRVC and mechanical ventilation. 3. Possible tracheostomy on Thursday. 4. Continue to monitor and control blood sugars. 5. Wean Levophed. 6. Continue current sedation. Richard Thompson MD [facility]/MODL /[id number]
--- NOTE | 2020-02-10 14:35 | Progress Note ---
DATE: Nephrology Progress Note SUBJECTIVE: No overnight changes. OBJECTIVE: VITAL SIGNS: Temperature , blood pressure 111/69, pulse ox 98%, still on a mechanical ventilator. GENERAL: Intubated and sedated. PULMONARY: Intubated and sedated. CARDIOVASCULAR: Positive S1 and S2. No murmurs, rubs, or gallops ABDOMEN: Soft, nontender, . Bowel sounds present. MUSCULOSKELETAL: Unable to assess. NEUROLOGIC: intubated and sedated. SKIN: Intact. Warm to touch. Good capillary refill intubated and sedated. EXTREMITIES: Has some trace edema appreciated. LABORATORY DATA: White count is 12, hemoglobin 7.9, hematocrit 27, platelets of 569. Chemistry; sodium 139, potassium 4.5, chloride 105, bicarb 26, LFTs within normal range. Albumin is 1.8. MICROBIOLOGY: DIAGNOSTIC STUDIES: Chest x-ray this morning pneumonia . ASSESSMENT: 1. secondary to blood pressure fluctuation, now resolved. 2. Respiratory distress secondary to coronavirus disease pneumonia, intubated and sedated extremity DVT. PLAN: At this time, the patient is still intubated and sedated proceed with a tracheostomy. MD MUSA Sainz/ELVA /[id number]
--- NOTE | 2020-02-10 16:18 | NUR ---
Nutrition Intervention Note RD Recommendation(s) for Physician: -Recommend modifying tube feed formula to Vital High Protein @ goal rate of 45 mL/hr to better meet estimated nutritional needs (provides 1080 kcal, 95 g protein, and 903 mL water) -Propofol provides additional 370 lipid kcal/day -Fluid management per MD Plan of Care: RD following, monitoring for tolerance and adequacy, tube feed recommendation Nutrition reason for involvement: follow up RD Assessment 02/09: Follow up. Chart reviewed. Pt remains intubated and sedated. Pt is receiving propofol at 14 mL/hr (provides 370 kcal) and Glucerna 1.2 tube feeding at 35 mL/h per documentation. This regimen is not meeting pts nutritional needs. Recommendations provided. Will continue to monitor 02/05: Follow up. Chart reviewed. Pt remains intubated and sedated. Pt is receiving propofol at 10 mL/hr per RN (provides 264 kcal). Pt continues on low rate tube feeding at 20 mL/hr. Recommendations provided. Will continue to monitor 01/31: Follow up. Pt remains intubated and sedated on Propofol. No pressors currently. Pt continues on low rate TF of Glucerna 1.2, not meeting needs. Current TF rec's remain appropriate, rec's placed in chart for MD. Chart reviewed. Will continue to monitor. 01/26: Follow up. Pt remains intubated and sedated. Pt is tolerating tube feedings. Current RD recommendations remain appropriate. Informed RN of recommendation. Will continue to monitor. (01/25/20) Pt is a 69 year old female admitted with abdominal pain and hypoxia. Pt is COVID-19+ and is currently intubated. Tube feedings were started. There are no previous weights in chart. Nutrition history is limited at this time. Recommendations provided and will continue to monitor. Principal Problems/Diagnoses: abdominal pain and hypoxia PMH: HTN, diabetes I/O: 2954/1100 GI: soft, non-tender abdomen, last recorded BM 02/09 Skin: sacrum stage II PU Labs: 02/05: Na 138, K 4.7, BUN 24, Cr 0.60, Glu 174 01/31: Na 142, K 4.1, BUN 30, Cr 0.62, Gluc 136, POC Gluc 133-235 01/26: Na 140, K 3.7, BUN 19, Cr 0.69, Glu 93, Ca 7.9, AST 44 (01/24) Na 139, K 2.8, BUN 15, Glu 193, Ca 7.8, AST 38, HgbA1c 8.9% (01/22) Meds: fentanyl, vitamin C, zinc sulfate, pepcid, midazolam, lovenox, insulin, propofol, rocuronium, norepinephrine, KCl, lasix, zofran Ht: 64 inches Wt: 223 lbs (02/09) 222 lbs (02/05) 165 lbs (01/21) Suspect possible weight error BMI: 28.3 kg/m2 (using weight of 165 lbs) IBW: 120 lbs Malnutrition Evaluation (01/25/20) Unable to assess. Will re-evaluate at follow-up as appropriate. Nutrition Prescription (Diet Order): Glucerna 1.2 @ 30 mL/hr (running at 35 mL/hr at this time per documentation) Estimated Nutritional Needs: 8235-0707 calories/day (18-20 kcal/kg CBW) Weight used: 165 lbs 90-150 g protein/day (1.2-2 g pro/kg CBW) Weight used: 165 lbs Diet Adequacy: Not meeting calorie needs, Not meeting protein needs Tolerance: Tolerating TF Diet Education Needs Assessment: Diet education not indicated, patient on temporary/transition diet. Nutrition Care Level: moderate Nutrition Diagnosis: Inadequate oral intake related to acute respiratory failure/mechanical ventilation as evidenced by need for enteral nutrition. Goal: Patient will meet 75-100% of estimated needs by follow up Progress: not progressing with current tube feed order Interventions: -Composition, Rate, Route, Recommended Modifications, Collaboration with other providers Monitoring/Evaluation: -Total energy intake, Total protein intake, Formula/Solution, Weight change Signed: Sindhu Hazel, RD, LD
[2020-02-10] MEDS: CEFEPIME 2 GM/NS 0.9% 100 ML 100 ML IV SCH (19:59)
[2020-02-10] MEDS ORDERED: CEFEPIME HCL 2 GM VIAL IV SCH (20:00)
[2020-02-10] MEDS: VANCOMYCIN 1GM/NS 250 ML 250 ML IV SCH (21:09)
[2020-02-11] VITALS (21 sets, daily range): BP systolic 69–163; BP diastolic 38–63
--- NOTE | 2020-02-11 00:52 | Diagnostic Imaging Report ---
EXAM: CT Chest WITHOUT contrast INDICATION: ^resp failure ^[id number] ^2350 COMPARISON: CT abdomen pelvis 01/21/2020 TECHNIQUE: Chest was scanned utilizing a multidetector helical scanner from the lung apex through the level of the adrenal glands without administration of IV contrast. Absence of intravenous contrast decreases sensitivity for detection of lymphadenopathy and vascular pathology. Coronal and sagittal reformations were obtained. Routine protocol was performed. IV CONTRAST: None COMPLICATIONS: None RADIATION DOSE: Total DLP: 486 mGy*cm Estimated effective dose: (DLP x 0.014 x size factor) mSv CTDIvol has been reviewed. It is below the limits set by the Radiation Protocol Committee (RPC). Dose modulation, iterative reconstruction, and/or weight based adjustment of the mA/kV was utilized to reduce the radiation dose to as low as reasonably achievable. FINDINGS: LINES/ TUBES: An endotracheal tube terminates above the adriana. A right internal jugular vein central line terminates in the upper SVC. A nasogastric tube terminates in the stomach. LUNGS AND AIRWAYS: Extensive severe pulmonary airspace disease with diffuse groundglass opacities and patchy dense consolidation. Notably, there is dense consolidation of the majority of the bilateral lower lobes, with associated air bronchograms. Scattered intralobular septal thickening. Small amount of mucus and/or debris within the left mainstem bronchus. PLEURA: Small bilateral pleural effusions. No pneumothorax. HEART AND MEDIASTINUM: The thyroid gland is enlarged. Normal heart size. No pericardial effusion. Prominent mediastinal lymph nodes, likely reactive. UPPER ABDOMEN: Grossly unremarkable. BONES: No acute osseous abnormality. SOFT TISSUES: Unremarkable. IMPRESSION: 1. Severe diffuse pulmonary airspace disease likely reflective of viral pneumonia with ARDS. Superimposed multifocal bacterial pneumonia is also possible. 2. Small bilateral pleural effusions. 3. Small amount of mucus and/or debris within the left mainstem bronchus. Signed by: William Oliveira MD on 02/11/2020 12:49 AM
[2020-02-11] MEDS: PROPOFOL IV EMULSION 10MG/ML 100 ML IV PRN ×3 (01:26→16:30)
--- NOTE | 2020-02-11 02:57 | Progress Note ---
DATE: 02/10/2020 Cardiology Progress Note SUBJECTIVE: Intubated and sedated; episodes of hypoxemia, tachycardia; labile blood pressure. O2sats above 90. Telemetry: sinus rhythm OBJECTIVE: VITAL SIGNS: Temperature 99.8, heart rate 90, blood pressure 126/50, respiratory rate 28, O2 saturation 93% on vent support at high PEEP pressures and increased FiO2 requirements. GENERAL: Intubated, sedated. CHEST: Decreased breath sounds. CARDIOVASCULAR: Regular rate and rhythm. EXTREMITIES: trace edema. CARDIOVASCULAR MEDICATIONS: Reviewed. LAB DATA: reviewed. Problems: 1. Coronavirus disease-19 infection, community-acquired pneumonia and acute respiratory failure requiring ventilatory support. 2. Transient hypoxemia and hemodynamic instability 3. Hypertension and diabetes. 4. Upper extremity deep vein thrombosis. RECOMMEND: 1. Continue Lovenox for thromboembolic disease. 2. Monitor H and H, hemoglobin 7.9. 3. Continue supportive care.. MD ZULY Argueta/ELVA /[id number]
[2020-02-11] MEDS: ROCURONIUM BROMIDE 250 MG in SODIUM CHLORIDE 0.9% 250ML 225 ML IV SCH ×3 (04:00→19:59)
[2020-02-11 06:20] LABS: BASOPHILS % 0.3 % (0.0-1.0); EOSINOPHILS # (AUTO) 0.6 (0.0-0.4); EOSINOPHILS % 5.4 % (0.0-6.0); HEMATOCRIT 28.9 % (34.2-44.1); HEMOGLOBIN 8.4 g/dL (12.0-16.0); LYMPHOCYTES # (AUTO) 1.2 (1.0-3.2); LYMPHOCYTES % 10.1 % (18.0-39.1); MEAN CORPUSCULAR HEMOGLOBIN 28.6 pg (28-32); MEAN CORPUSCULAR HGB CONC 29.1 g/dL (31-35); MEAN CORPUSCULAR VOLUME 98.3 fL (81-99); MONOCYTES # (AUTO) 0.7 (0.2-0.8); MONOCYTES % 5.9 % (4.4-11.3); NEUTROPHILS # (AUTO) 8.6 (2.1-6.9); NEUTROPHILS % 75.6 % (38.7-80.0); PLATELET COUNT 484 x10e3/uL (140-360); RED BLOOD COUNT 2.94 x10e6/uL (3.6-5.1)
[2020-02-11] MEDS: ENOXAPARIN INJ 80 MG/0.8 ML SYR SC SCH (06:27)
[2020-02-11 06:45] LABS: ALANINE AMINOTRANSFERASE 17 IU/L (0-55); ALBUMIN 1.7 g/dL (3.5-5.0); ALBUMIN/GLOBULIN RATIO 0.4 (0.8-2.0); ALKALINE PHOSPHATASE 79 IU/L (40-150); ANION GAP 8.8 mmol/L (8-16); BLOOD UREA NITROGEN 14 mg/dL (7-26); BUN/CREATININE RATIO 26 (6-25); CARBON DIOXIDE 28 mmol/L (22-29); CHLORIDE 106 mmol/L (98-107); CREATININE, SERUM 0.53 mg/dL (0.57-1.11); EST GLOMERULAR FILTRATION RATE > 60 ML/MIN (60-); GLUCOSE 87 mg/dL (74-118); POTASSIUM 4.8 mmol/L (3.5-5.1); SODIUM 138 mmol/L (136-145)
[2020-02-11] MEDS: MIDAZOLAM HCL 5MG/ML 10ML VIAL 100 ML IV PRN (06:49)
[2020-02-11 07:25] LABS: ABG PH 7.29 (7.35-7.45)
[2020-02-11 07:26] LABS: ABG HCO3 29 mmol/L (22-26); ABG PCO2 59 mmHg (35-45); ABG PO2 69 mmHg (80-105)
[2020-02-11] MEDS ORDERED: NOREPINEPHRINE 8 MG/D5W 250 ML 250 ML ONE (07:54)
[2020-02-11] MEDS: ASCORBIC ACID 500 MG TAB PO SCH ×2 (09:00→18:21)
[2020-02-11] MEDS: NOREPINEPHRINE INJ 4MG/4ML 8 MG in DEXTROSE 5% 250ML 250 ML IV SCH (09:00)
[2020-02-11] MEDS: POTASSIUM CHLORIDE 20MEQ/15ML UDC NG SCH (09:00)
[2020-02-11] MEDS: EYE LUBRICANT OPTH OINT 3.5GM TUBE OP SCH (09:19)
[2020-02-11] MEDS: BALSAM PERU/CASTOR OIL 60 GM OINT...G. TP SCH (09:19)
[2020-02-11] MEDS: ZINC SULFATE 220 MG CAP PO SCH (09:30)
[2020-02-11] MEDS: VANCOMYCIN 1GM/NS 250 ML 250 ML IV SCH ×2 (09:30→21:43)
[2020-02-11] MEDS: FAMOTIDINE 20 MG/2 ML VIAL IV SCH ×2 (09:30→18:21)
[2020-02-11] MEDS: CEFEPIME 2 GM/NS 0.9% 100 ML 100 ML IV SCH ×2 (09:30→19:59)
[2020-02-11 09:58] LABS: PLATELET ESTIMATE ADEQUATE; PLATELET MORPHOLOGY COMMENT NORMAL; RBC MORPHOLOGY COMMENT NORMAL
[2020-02-11] MEDS ORDERED: FUROSEMIDE INJ 10 MG/ML 2 ML VIAL IV ONE (10:00)
[2020-02-11 10:54] LABS: ABG HCO3 27 mmol/L (22-26); ABG PCO2 48 mmHg (35-45); ABG PH 7.35 (7.35-7.45); ABG PO2 65 mmHg (80-105)
--- NOTE | 2020-02-11 11:18 | Progress Note ---
DATE: Pulmonary Critical Care progress note The patient went for CT scan of the chest last night. CT scan shows diffuse ground-glass opacities suggestive of ARDS as well as marked lower lobe atelectasis. The patient's tidal volume was increased to 450 and her rate was decreased to 26. Her FiO2 is set at 80%. Her PEEP is set at 12. She is on the low dose Levophed at 5 mcg. She is also on Versed at 6 as well as fentanyl and rocuronium. PHYSICAL EXAMINATION: VITAL SIGNS: The blood pressure is now 100/60 on Levophed at 5. Ventilator settings are as noted above. The T-max was 100.7. HEENT: No facial swelling. There is no oral endotracheal tube. She has a nasogastric tube. She also has a right IJ line. The site looks clean. There is A line in the left wrist. CARDIAC: Regular rate and rhythm with normal S1, S2. LUNGS: Auscultation of lungs reveals rhonchorous breath sounds bilaterally. There is no wheezing. ABDOMEN: Soft. Nontender. There is no rebound or guarding. EXTREMITIES: 2+ edema in all four extremities. LABORATORY DATA: The BUN to creatinine ratio is 16 to 0.53. Other electrolytes are within normal limits. Albumin is 1.7. Hemoglobin is 8.4 and the white blood cell count is 11.43. The platelet count is 484. IMPRESSION: 1. Acute respiratory failure. 2. Bibasilar atelectasis. 3. Viral pneumonia and coronavirus disease-19 infection. 4. Diabetes. 5. Moderate protein-calorie malnutrition. 6. Hypoalbuminemia. PLAN: 1. Continue current ventilator settings and repeat ABG. 2. Albumin along with low-dose Lasix. 3. Lovenox. 4. Continue enteral feedings. 5. Evaluation for possible tracheostomy. 6. Consider bronchoscopy. 7. Continue Lovenox at 100 mg subcutaneous q.12 hours. Case discussed with nursing staff, Respiratory, Internal Medicine, Infectious Disease, and family. Greater than 35 minutes in direct critical care time apart from any procedures performed. MD PASTORA [facility]/ELVA /[id number]
[2020-02-11] MEDS: FENTANYL 2000MCG/NS 250 250 ML IV PRN (13:46)
[2020-02-11] MEDS: ALBUMIN 25% 25GM 100ML 0.25 GM/ML BTL IV SCH ×2 (15:55→22:19)
--- NOTE | 2020-02-11 16:14 | Progress Note ---
DATE: 02/11/2020 Nephrology Progress Note SUBJECTIVE: The patient is still intubated. No overnight events. PHYSICAL EXAMINATION: VITAL SIGNS: Temperature is 99.4, pulse 110, respiratory rate is 26, blood pressure 125/57, and pulse ox 92%. She is on mechanical ventilator. GENERAL: Intubated and sedated. CARDIOVASCULAR: Positive S1 and S2. No murmurs, rubs, or gallops appreciated. ABDOMEN: Soft, nondistended, and nontender to palpation. Bowel sounds present. PULMONARY: She is intubated and sedated. MUSCULOSKELETAL: Unable to assess. NEUROLOGIC: Unable to assess. SKIN: Intact. Warm to touch. Good cap refill. EXTREMITIES: Shows trace edema. LABORATORY DATA: Show white count 11, hemoglobin 8.4, hematocrit is 28.9, and platelets of 484. Chemistry; sodium 138, potassium 4.8, chloride 106, bicarb 20, anion gap of 8.8, BUN is 14, and creatinine is 0.53. Repeat coronavirus is negative and another repeat pending. IMAGING STUDIES: Chest x-ray pending. IMPRESSION: 1. Nonoliguric secondary to blood pressure fluctuations, now resolved. 2. Respiratory distress secondary to coronavirus pneumonia, intubated and sedated. 3. Bilateral upper extremity deep venous thrombosis. PLAN: At this time, her electrolytes are stable. Urine output is okay. Continue to follow with the primary team. Repeat coronavirus is pending. Once that is negative, the patient will need a tracheostomy. MD MUSA Sainz/BERNARDOL /[id number]
[2020-02-11] MEDS ORDERED: SODIUM CHLORIDE 0.9% 250ML 250 ML ONE (19:43)
[2020-02-12] VITALS (19 sets, daily range): BP systolic 100–119; BP diastolic 45–84
[2020-02-12] MEDS: PROPOFOL IV EMULSION 10MG/ML 100 ML IV PRN ×2 (00:58→11:27)
[2020-02-12] MEDS: ACETAMINOPHEN 325 MG TAB PO PRN (00:58)
--- NOTE | 2020-02-12 01:30 | Progress Note ---
DATE: 02/11/2020 Cardiology Progress Note SUBJECTIVE: Intubated and sedated; episodes of hypoxemia, tachycardia; labile blood pressure. O2sats above 90. Telemetry: sinus rhythm OBJECTIVE: VITAL SIGNS: Temperature 99.8, heart rate 90, blood pressure 126/50, respiratory rate 28, O2 saturation 93% on vent support at high PEEP pressures and increased FiO2 requirements. GENERAL: Intubated, sedated. CHEST: Decreased breath sounds. CARDIOVASCULAR: Regular rate and rhythm. EXTREMITIES: trace edema. CARDIOVASCULAR MEDICATIONS: Reviewed. LAB DATA: reviewed. Problems: 1. Coronavirus disease-19 infection, community-acquired pneumonia and acute respiratory failure requiring ventilatory support. 2. Transient hypoxemia and hemodynamic instability 3. Hypertension and diabetes. 4. Upper extremity deep vein thrombosis. RECOMMEND: 1. Continue Lovenox for thromboembolic disease. 2. Monitor H and H. 3. Continue supportive care. MD ZULY Argueta/ELVA /[id number]
[2020-02-12] MEDS: MIDAZOLAM HCL 5MG/ML 10ML VIAL 100 ML IV PRN ×2 (02:28→10:59)
[2020-02-12] MEDS: FENTANYL 2000MCG/NS 250 250 ML IV PRN (02:29)
[2020-02-12] MEDS: ROCURONIUM BROMIDE 250 MG in SODIUM CHLORIDE 0.9% 250ML 225 ML IV SCH ×2 (03:46→12:16)
--- NOTE | 2020-02-12 05:49 | Diagnostic Imaging Report ---
EXAMINATION: CHEST SINGLE (PORTABLE) INDICATION: ^resp failure COMPARISON: 02/11/2020 FINDINGS: AP view TUBES and LINES: Unchanged endotracheal tube, nasogastric tube, and right IJ central line. LUNGS: Unchanged diffuse pulmonary airspace disease. PLEURA: Unchanged bilateral pleural effusions. HEART AND MEDIASTINUM: The cardiomediastinal silhouette is unchanged. BONES AND SOFT TISSUES: No acute osseous lesion. Soft tissues are unremarkable. UPPER ABDOMEN: No free air under the diaphragm. IMPRESSION: No interval change. Stable pulmonary airspace disease consistent with known viral pneumonia. Stable pleural effusions. Signed by: William Oliveira MD on 02/12/2020 5:46 AM
[2020-02-12 05:54] LABS: BASOPHILS % 0.1 % (0.0-1.0); EOSINOPHILS # (AUTO) 0.7 (0.0-0.4); EOSINOPHILS % 5.9 % (0.0-6.0); HEMATOCRIT 26.1 % (34.2-44.1); HEMOGLOBIN 7.8 g/dL (12.0-16.0); LYMPHOCYTES # (AUTO) 1.1 (1.0-3.2); LYMPHOCYTES % 9.2 % (18.0-39.1); MEAN CORPUSCULAR HEMOGLOBIN 28.7 pg (28-32); MEAN CORPUSCULAR HGB CONC 29.9 g/dL (31-35); MONOCYTES # (AUTO) 0.6 (0.2-0.8); MONOCYTES % 5.5 % (4.4-11.3); NEUTROPHILS % 77.5 % (38.7-80.0); PLATELET COUNT 396 x10e3/uL (140-360); RED BLOOD COUNT 2.72 x10e6/uL (3.6-5.1); RED CELL DISTRIBUTION WIDTH 16.3 % (11.7-14.4)
[2020-02-12 06:17] LABS: ALANINE AMINOTRANSFERASE 14 IU/L (0-55); ALBUMIN 2.1 g/dL (3.5-5.0); ALBUMIN/GLOBULIN RATIO 0.6 (0.8-2.0); ALKALINE PHOSPHATASE 86 IU/L (40-150); ANION GAP 10.2 mmol/L (8-16); BLOOD UREA NITROGEN 15 mg/dL (7-26); BUN/CREATININE RATIO 26 (6-25); CALCIUM 7.8 mg/dL (8.4-10.2); CARBON DIOXIDE 27 mmol/L (22-29); CHLORIDE 105 mmol/L (98-107); CREATININE, SERUM 0.58 mg/dL (0.57-1.11); EST GLOMERULAR FILTRATION RATE > 60 ML/MIN (60-); GLUCOSE 132 mg/dL (74-118); POTASSIUM 4.2 mmol/L (3.5-5.1); SODIUM 138 mmol/L (136-145)
--- NOTE | 2020-02-12 07:00 | NUR ---
Report given to Xin Burk RN.
[2020-02-12 08:06] LABS: ABG PH 7.34 (7.35-7.45)
[2020-02-12 08:07] LABS: ABG HCO3 26 mmol/L (22-26); ABG PCO2 48 mmHg (35-45); ABG PO2 67 mmHg (80-105)
[2020-02-12 09:21] LABS: HYPOCHROMASIA MODERATE; PLATELET ESTIMATE ADEQUATE; PLATELET MORPHOLOGY COMMENT NORMAL; RBC MORPHOLOGY COMMENT ABNORMAL
[2020-02-12] MEDS: FAMOTIDINE 20 MG/2 ML VIAL IV SCH (10:20)
[2020-02-12] MEDS: VANCOMYCIN 1GM/NS 250 ML 250 ML IV SCH (10:20)
[2020-02-12] MEDS: ASCORBIC ACID 500 MG TAB PO SCH (10:21)
[2020-02-12] MEDS: ZINC SULFATE 220 MG CAP PO SCH (10:21)
[2020-02-12] MEDS: BALSAM PERU/CASTOR OIL 60 GM OINT...G. TP SCH (10:21)
[2020-02-12] MEDS: EYE LUBRICANT OPTH OINT 3.5GM TUBE OP SCH (10:21)
[2020-02-12] MEDS: POTASSIUM CHLORIDE 20MEQ/15ML UDC NG SCH (10:21)
[2020-02-12] MEDS: NOREPINEPHRINE INJ 4MG/4ML 8 MG in DEXTROSE 5% 250ML 250 ML IV SCH (11:45)
[2020-02-12] MEDS: CEFEPIME 2 GM/NS 0.9% 100 ML 100 ML IV SCH (11:57)
--- NOTE | 2020-02-12 16:17 | Progress Note ---
DATE: 02/12/2020 Nephrology Progress Note SUBJECTIVE: Still intubated and sedated. PHYSICAL EXAMINATION: VITAL SIGNS: Temperature is 100.7, pulse 114, respiratory rate 26, blood pressure is 114/49, and pulse ox 99% on mechanical ventilator. GENERAL: Intubated and sedated. PULMONARY: Intubated and sedated. CARDIOVASCULAR: Positive S1, S2. No murmurs, rubs, or gallops. ABDOMEN: Soft, nondistended, nontender to palpation. Bowel sounds present. MUSCULOSKELETAL: Unable to assess. NEUROLOGICAL: Unable to assess. SKIN: Intact, warm to touch. Good cap refill. EXTREMITIES: Shows evidence of edema. LABORATORY DATA: Labs show white count 11.6, hemoglobin 7.8, hematocrit 26, and platelets of 396. Chemistry; sodium 138, potassium 4.2, chloride 105, bicarbonate 27, anion gap 14, BUN 15, creatinine 0.58, glucose 132. Repeat Coronavirus is pending. DIAGNOSTIC STUDIES: Chest x-ray, no interval change. Stable pulmonary airspace disease consistent with known viral pneumonia. IMPRESSION: 1. Nonoliguric, secondary to blood pressure fluctuation, now resolved. 2. Respiratory distress, secondary to Coronavirus pneumonia, intubated and sedated. 3. Bilateral upper extremity deep venous thrombosis. PLAN: The patient is doing well. Good urine output. Replace electrolytes accordingly. Continue following with the primary team. Possible tracheostomy later this week. MD MUSA Sainz/MODL /[id number]
--- NOTE | 2020-02-12 16:37 | Progress Note ---
DATE: Pulmonary Critical Care Progress Note. SUBJECTIVE: The patient is now requiring 100% FiO2. She remains on rocuronium along with Versed and fentanyl. She is on a PRVC mode of ventilation at a rate of 26 with a PEEP of 12 and 100%. Her tidal volume is set at 430. OBJECTIVE: HEENT: Shows no facial swelling or erythema. There is an oral endotracheal tube. She has a right IJ line. The site looks clean. There is no drainage. CARDIAC: Reveals regular rate and rhythm with normal S1, S2. LUNGS: Auscultation of lungs reveals crackles at the bases. There is no wheezing. ABDOMEN: Soft and nontender. There is no rebound or guarding. EXTREMITIES: Shows no leg edema or calf tenderness. There is no cyanosis or clubbing. SKIN: Shows no rashes. LABORATORY DATA: White blood cell count is 11.6 and hemoglobin is 7.8, platelet count is 396. BUN to creatinine ratio is normal. Other electrolytes are within normal limits. IMPRESSION: 1. Acute respiratory failure. 2. Viral pneumonia and COVID-19 infection. 3. Diabetes. 4. Protein calorie malnutrition. 5. Hypoalbuminemia. PLAN: 1. Case discussed with brother. Because the patient is doing worse, they prefer not to proceed with tracheostomy. They are considering withdrawal and comfort measures. 2. Continue Lovenox. 3. Continue enteral feedings. 4. Complete current antibiotics. Richard Thompson MD [facility]/MODL /[id number]
--- NOTE | 2020-02-12 19:00 | NUR ---
Report received from Xin Burk RN. Per report the patients family /POA has requested withdraw of life support and care at this time. Dr. Antione Thompson has ordered to withdraw life support and care per their request as well. Family and Dr. Thompson to be notified upon patients expiration.
--- NOTE | 2020-02-12 19:05 | NUR ---
Dr. Antione Thompson present. He has ordered to withdraw care per the family and POA wishes, after nursing shift change.
--- NOTE | 2020-02-12 19:33 | NUR ---
Ventilator support withdrawn at this time per Dr. Thompson order and family/POA request.
--- NOTE | 2020-02-12 20:20 | NUR ---
Pt Expiration Documentation 1947 - pt , cardiopulmonary arrest, Dr. Antione Thompson notified. 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 1999 - Pts family/POA/brother Luis Alfaro notified and he consented to sending pts body to [facility] 2009 - [facility] notified - Maris Faith. , pt is not a candidate for organ or tissue. Please refer to paper Record in pts chart for further documentation.
--- NOTE | 2020-02-12 22:30 | NUR ---
[facility] home picked up pts body at this time.
--- NOTE | 2020-02-13 01:13 | Progress Note ---
DATE: 02/12/2020 Cardiology Progress Note SUBJECTIVE: The patient is intubated and sedated. The patient has continued to have episodes of hypoxemia, tachycardia, and labile blood pressure. Telemetry shows sinus rhythm. OBJECTIVE: VITAL SIGNS: Show systolic blood pressure of 103, diastolic of 52 mmHg. Pulse is 114, respiratory rate 26, and temperature 100.3. GENERAL: The patient is intubated and sedated. CHEST: Decreased breath sounds both lung hand. CARDIOVASCULAR: Regular rate and rhythm. EXTREMITIES: Trace edema. CARDIOVASCULAR MEDICATIONS: Reviewed. LABORATORY DATA: Reviewed. Note, the patient's family has been considering terminal extubation. I understand that the family's wishes have been communicated to Dr. Thompson, who will then proceed with terminal extubation. PROBLEMS: COVID-19 infection with associated pneumonia and acute respiratory failure, requiring ventilatory support. As stated above, my understanding is that this family has asked for terminal extubation. We will continue to monitor the patient depending on whether the terminally extubation occurs or not. MD ZULY Argueta/MODL /[id number]
[2020-02-14 11:32] LABS: ABG PH 7.43 (7.35-7.45)
[2020-02-14 11:33] LABS: ABG HCO3 33 mmol/L (22-26); ABG PCO2 50 mmHg (35-45); ABG PO2 48 mmHg (80-105)
== END 2020-02-12 22:30 | disposition expired | DRG 207 ==
LOC: ER 14:02 → ERHOLD 20:29 → IMCU 23:01 → ICU 01-23 22:30
PROVIDERS: ADMIT Internal Medicine; ATTEND Internal Medicine
PROC: 8E0ZXY6 Isolation (ICD-10-PCS; 2020-01-21)
PROC: 5A1955Z Respiratory Ventilation, Greater than 96 Consecutive Hours (ICD-10-PCS; principal; 2020-01-24)
PROC: 0BH18EZ Insertion of Endotracheal Airway into Trachea, Via Natural or Artificial Opening Endoscopic (ICD-10-PCS; 2020-01-24)
PROC: 02HV33Z Insertion of Infusion Device into Superior Vena Cava, Percutaneous Approach (ICD-10-PCS; 2020-01-24)
PROC: B548ZZA Ultrasonography of Superior Vena Cava, Guidance (ICD-10-PCS; 2020-01-24)
PROC: 02HV33Z Insertion of Infusion Device into Superior Vena Cava, Percutaneous Approach (ICD-10-PCS; 2020-01-30)
PROC: B548ZZA Ultrasonography of Superior Vena Cava, Guidance (ICD-10-PCS; 2020-01-30)
PROC: 3E043XZ Introduction of Vasopressor into Central Vein, Percutaneous Approach (ICD-10-PCS; 2020-01-30)
DX: U07.1 COVID-19 (principal); J12.89 Other viral pneumonia; J96.01 Acute respiratory failure with hypoxia; J80 Acute respiratory distress syndrome; E11.10 Type 2 diabetes mellitus with ketoacidosis without coma; J15.9 Unspecified bacterial pneumonia; A41.9 Sepsis, unspecified organism; R65.21 Severe sepsis with septic shock; E87.1 Hypo-osmolality and hyponatremia; E87.2 Acidosis; N17.9 Acute kidney failure, unspecified; I82.621 Acute embolism and thrombosis of deep veins of right upper extremity; I10 Essential (primary) hypertension; R74.0 Nonspecific elevation of levels of transaminase and lactic acid dehydrogenase [LDH]; R45.1 Restlessness and agitation; L89.152 Pressure ulcer of sacral region, stage 2; E78.5 Hyperlipidemia, unspecified; E88.09 Other disorders of plasma-protein metabolism, not elsewhere classified; E66.9 Obesity, unspecified; D64.9 Anemia, unspecified; Z68.28 Body mass index [BMI] 28.0-28.9, adult; Z79.84 Long term (current) use of oral hypoglycemic drugs
CPT/HCPCS: 31500; 36415; 36569; 36600; 71045; 71250; 74018; 74177; 80048; 80053; 80061; 81001; 82805; 82948; 83036; 83690; 83735; 83880; 84100; 84145; 84443; 85025; 87070; 87205; 87635; 93306; 93970; 94002; 94003; 96372; 99251; 99284; J0330; J0456; J0696; J1100; J1650; J1817; J1940; J2250; J2270; J2405; J3370; J3480; J7030; J7050; J7070; P9047; Q9967